=== PATIENT | male | born 1960 | race Caucasian/White ===

== ENCOUNTER 2016-09-05 21:37 | Inpatient (IN) | payer MEDICARE ==
[~2016-09-05] VITALS: Ht 175.3 cm; Wt 83.9 kg
--- NOTE | ~2016-09-05 | CON ---
PATIENT'S NAME: [facility] AGE: 56 Y [address] ROOM: [address] [place], [place] [address] LOCATION: GICU ADMIT DATE: 09/05/2016 Consultation DISCHARGE DATE: FAMILY PHYSICIAN: Jose Miguel Clemente MD ATTENDING PHYSICIAN: ROLO DESIR DATE OF CONSULTATION: 09/06/2016 REFERRING PHYSICIAN: Bob Aguila MD REASON FOR CARDIOLOGY CONSULT: A need for cardiac evaluation prior to a possible right hip fracture surgery as well as fluid overload and elevated cardiac enzymes. HISTORY OF PRESENT ILLNESS: This is a 56-year-old male who is admitted with a right hip fracture after a fall and a questionable syncopal episode. He does not fully recall falling. He remembers waking up in his kitchen on the floor with right-sided hip pain. He denies chest pain, shortness of breath, headache, or palpitations prior to the event. He does currently have some complaints of shortness of breath as well as right-sided hip pain. He has an extensive medical history including some noncompliance with his diabetes mellitus management. He does have a history of ischemic cardiomyopathy with a myocardial infarction in 2005 and did have a BiV-ICD in place, but was explanted along with lead extraction in 2014 due to pocket erosion and infection from uncontrolled diabetes. His other cardiac history includes hypertension, hyperlipidemia, and coronary artery disease. At the time of this consult, the patient has just recently been transferred to the intensive care unit for vasopressor support due to hypotension. He is resting comfortably in bed with no real complaints other than his hip pain and shortness of breath. PAST MEDICAL HISTORY: 1. Ischemic cardiomyopathy, last known ejection fraction in 2015 was 15-20%. 2. Device pocket erosion and infection with subsequent explantation of leads and his device in 2014. 3. Coronary artery disease with history of stenting to his LAD. 4. Anterior wall myocardial infarction in 2005. 5. Hyperlipidemia. 6. Nocturnal hypoxemia with O2 use at bedtime. 7. Hypertension. 8. Diabetes mellitus type 2 with insulin use. 9. Previous history of schizophrenia. PAST SURGICAL HISTORY: 1. Explantation of that BiV-ICD in July of 2015 due to pocket infection and erosion. 2. He originally had a dual-chamber ICD placed in 2008 and then upgraded to a BiV-ICD in 2011. PATIENT'S NAME: [facility] AGE: 56 Y [address] ROOM: [id number] [place], [place] [address] LOCATION: CU ADMIT DATE: 09/05/2016 Consultation DISCHARGE DATE: FAMILY PHYSICIAN: Jose Miguel Clemente MD ATTENDING PHYSICIAN: ROLO DESIR 3. Stenting to his LAD in 2005. 4. Stenting to his distal LAD, the 1st was in December of 2005, the second stent to distal LAD in March of 2006. 5. Foot surgery in 2011. FAMILY HISTORY: The patient's father at the age of 83 due to cancer. SOCIAL HISTORY: The patient is a current daily smoker. He smokes 2 packs per day and has done so for the last 35 years. He denies alcohol use as well as illicit drug use. CURRENT MEDICATIONS: 1. Atrovent 0.5 mg inhaled every 6 hours. 2. Xopenex 1.25 mg inhaled every 6 hours. 3. Levophed IV with titration parameters for hypotension. 4. Protonix 40 mg IV twice daily. 5. Aspirin 81 mg p.o. daily in the evening. 6. Deltasone 60 mg p.o. daily in the evening. 7. Mucinex 1200 mg p.o. twice daily. 8. Levaquin 750 mg p.o. daily in the evening. 9. Lipitor 80 mg p.o. daily in the evening. 10. Lopressor 25 mg p.o. twice daily. 11. Paxil 60 mg p.o. daily in the evening. 12. Peridex p.o. 4 times daily. 13. Prinivil 5 mg p.o. daily. 14. Topamax 100 mg p.o. twice daily. 15. Zyprexa 20 mg p.o. daily in the evening. 16. Levemir 50 units subcu daily in the evening. 17. NovoLog subcu on a mild sliding scale per a.c. and h.s. Accu-Cheks. 18. NicoDerm patch 7 mg transdermally daily. MEDICATION ALLERGIES: No known medication allergies. REVIEW OF SYSTEMS: A 12-point review of systems is evaluated and negative except for those listed in the HPI. DIAGNOSTICS: Cardiac enzymes show a CPK of 682, CK-MB of 13.1, and troponin I of 0.168. He has a D-dimer of 2.79 and a proBNP of 4148. CMS evaluation shows sodium of 133, potassium 4.6, BUN of 18, creatinine of 1.0, and a glucose of 58. PHYSICAL EXAMINATION: PATIENT'S NAME: [facility] AGE: 56 Y [address] ROOM: [place] [address] LOCATION: [facility] ADMIT DATE: 09/05/2016 Consultation DISCHARGE DATE: FAMILY PHYSICIAN: Jose Miguel Clemente MD ATTENDING PHYSICIAN: ROLO DESIR VITAL SIGNS: Temperature 98.4, pulse 76, respirations 18, blood pressure 74/56, and O2 saturation 95% on 4 L nasal cannula. The patient weighs 93.4 kg. SKIN: [place], warm, and dry. HEENT: Eyes: Sclerae clear. No xanthelasmas. ENT: Oral mucosa is pink and moist. No jugular venous distention or carotid bruits. CHEST: Respirations are even and slightly labored. Lung sounds are diminished to the bases bilaterally. HEART: Regular rate and rhythm. Heart tones are diminished. ABDOMEN: Distended but soft. MUSCULOSKELETAL: Equal muscle strength to upper and lower extremities bilaterally against resistance. EXTREMITIES: Peripheral pulses palpable. No clubbing or cyanosis noted. Does have 2 to 3+ lower extremity edema extending up to his thigh bilaterally. PSYCH: Alert and oriented. Mood and affect are appropriate. IMPRESSION AND PLAN: Per Dr. Barrios, 1. Cardiogenic shock. 2. Ischemic cardiomyopathy. 3. Chronic systolic congestive heart failure. 4. Very poor functional capacity. 5. Status post fall/syncope. 6. Hypotension. 7. Right hip fracture. 8. Coronary artery disease with a history of stenting to his left anterior descending artery as well as a myocardial infarction in 2005. 9. Diabetes mellitus. 10. History of implantable cardioverter-defibrillator explantation due to infection. Do recommend continuing his inotropic support to keep his MAP greater than 65 mmHg. Unable to give him beta-layne or RONNI inhibitor at this time due to hypotension, but do continue to monitor, and add these agents as appropriate for his heart failure management. Overall prognosis is poor and he is a very high risk for perioperative cardiac events. I do recommend very close monitoring for hemodynamics with inotropes to keep MAP greater than 65 mmHg. Watch for arrhythmias and avoid anemia. We will continue to monitor, evaluate, and treat as appropriate. Thank you for this consult. Thank you for allowing [facility] to interact in the care of this patient. PATIENT'S NAME: [facility] AGE: 56 Y [address] ROOM: [id number] [place], [place] [address] LOCATION: CU ADMIT DATE: 09/05/2016 Consultation DISCHARGE DATE: FAMILY PHYSICIAN: Jose Miguel Clemente MD ATTENDING PHYSICIAN: ROLO DESIR RICKI SERNA APRN FOR MD BIANCA SMITH/sheldon /[id number] d: 09/06/16 2305 t: 09/11/16 1218, CONSULTATION REPORT
--- NOTE | ~2016-09-05 | DS ---
PATIENT'S NAME: TEZ THOMPSON [facility] AGE: 56 Y [address] ROOM: [place] [address] LOCATION: GICU ADMIT DATE: 09/05/2016 Discharge Summary DISCHARGE DATE: 09/06/2016 FAMILY PHYSICIAN: Jose Miguel Clemente MD ATTENDING PHYSICIAN: Cresencio Kwon ATTENDING PHYSICIAN: Bryon Andrews MD PRIMARY CARE PHYSICIAN: None. FINAL DIAGNOSES: 1. Status post fall. 2. Right hip intertrochanteric fracture, comminuted. 3. History of chronic obstructive pulmonary disease. 4. Chronic respiratory failure. 5. History of congestive heart failure. 6. History of ischemic cardiomyopathy. 7. Diabetes mellitus. 8. Right femoral stenosis, chronic per Vascular Surgery. 9. Anemia. 10. Hypotension, currently on Levophed. 11. 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 CONSULTATIONS: 1. Cardiology, Duglas Barrios MD. 2. Pulmonology, Joaquim Danielson MD. 3. Critical Care, Joaquim Danielson MD. 4. Orthopedics, Santiago Melissa MD. 5. Vascular Surgery, Shane Wisdom MD. PROCEDURES: None. REASON FOR ADMISSION: This is a 56-year-old male with a history of ischemic cardiomyopathy and diastolic heart failure with ejection fraction of 10% to 15%, who presented after a fall. The patient was found to have right intertrochanteric fracture and was then further admitted to [facility]. Please see Dr. Kwon's admission H and P for further details. DIAGNOSTIC STUDIES: A transthoracic echocardiogram was done on admission showed ejection fraction of 15%. Mild pulmonary hypertension with RVSP 45 mmHg was noted, mildly reduced right ventricular fraction and grade I diastolic dysfunction was noted. Mild concentric left ventricular hypertrophy and mild LA enlargement were detected as well. ABG was done on admission showed a pH of 7.38, pCO2 42, pO2 106, bicarb 24.8. Lactate 1.7 on admission, subsequently lelia to 4.3, after hydration lactate was 2.2. Prior to transfer to [facility], Accu-Cheks were done on regular basis and were in the range of 84- 285. The patient had serial cardiac enzymes done CPK 707 on admission and PATIENT'S NAME: [facility] AGE: 56 Y [address] ROOM: [id number] [place], [place] [address] LOCATION: [facility] ADMIT DATE: 09/05/2016 Discharge Summary DISCHARGE DATE: 09/06/2016 FAMILY PHYSICIAN: Jose Miguel Clemente MD ATTENDING PHYSICIAN: Cresencio Kwon subsequently was 569. Troponin I 0.104 on admission, subsequently was 0.148, proBNP 4148 on admission and subsequently 4619. The patient had serial CBCs done. White count on admission was 17.0, at the time of discharge was 13.0; hemoglobin 11.8 on admission, 10.6 at discharge. Platelet count was within normal range. Serial BMPs were done. Electrolytes were within normal range on admission. Prior to discharge, the patient had a potassium of 5.4, which was treated. Creatinine was 1.2 on admission and 1.5 at discharge. The patient was developing VLAD prior to transfer. GFR more than 60 on admission and 48 at the time of discharge. Alkaline phosphatase 435. AST, ALT, and total bilirubin level within normal range. Mag 2.2. Hemoglobin A1c 9.7. Lipid panel showed cholesterol of 109, triglyceride 55, HDL 53, LDL 45. PT/INR was normal. The patient was placed on heparin drip prior to transfer. UA showed few bacteria, wbc's rbc's and rare epithelial cells and blood. Cardiac enzymes were done. CK-MB 16.4 on admission and at the time of discharge, it declined at 9.0. Iron studies were done. Serum iron 32, TIBC 304, percent saturation 11, ferritin level 72.8. Free T4 1.0, TSH 1.07. Procalcitonin level 0.36. Influenza A and B negative. D-dimer elevated at 2.79. CT chest PE protocol was done for shortness of breath and showed no PE, showed effusion, ascites, and body wall edema. Mild cardiomegaly noted. AVSD was detected. The patient had a CT of the abdomen and pelvis with runoff for poor pulses bilateral lower extremity. CTA with runoff showed comminuted intertrochanteric fracture of the right hip. No evidence of acute arterial bleeding was noted. No measurable hematoma noted, high-grade stenosis, focal occlusion of the proximal right renal artery with about 2/3 of the kidney infarcted, likely acute, high-grade flow-limiting stenosis in the distal right SFA was noted. Pleural effusion and ascites were detected. Chest x-ray was done on admission for hypoxia and showed cardiac silhouette enlarged, stable prominence of the central pulmonary vessels were noted with no acute infiltrate pleural effusion or pneumothorax. X-ray of the pelvis showed comminuted intertrochanteric fracture of the right hip. Cervical CT was done and showed no acute fracture. CT head no contrast was done for history of fall and showed no acute intracranial abnormality. X-ray of right femur showed right intertrochanteric fracture comminuted at the right hip. HOSPITAL COURSE: The patient was admitted for evaluation management of his right intertrochanteric hip fracture. The patient presented with a fall. The patient does have a history of COPD and a history of diastolic CHF with a history of ischemic cardiomyopathy and ejection fraction of 10% to 15%. The patient was found to be hypotensive and was placed in the ICU. He was on pressors. He was placed on Levophed during this admission. Cardiology was consulted. No additional recommendations were received. The patient had decreased pulses of bilateral lower extremity. CTA was done at that point of time and showed right renal stenosis and right SFA stenosis, Vascular Surgery, Dr. Wisdom was consulted and no additional recommendations were received. Dr. Wisdom called me and stated that this was likely chronic occlusion. The PATIENT'S NAME: TEZ THOMPSON [facility] AGE: 56 Y [address] ROOM: [place] [address] LOCATION: [facility] ADMIT DATE: 09/05/2016 Discharge Summary DISCHARGE DATE: 09/06/2016 FAMILY PHYSICIAN: Jose Miguel Clemente MD ATTENDING PHYSICIAN: Cresencio Kwon patient did have right renal artery stenosis with infarction of his kidney and I did discuss the case with Radiology that evening. The patient's creatinine was normal on admission, but his creatinine started to rise and patient developed VLAD with a drop in GFR. He was also found to be hyperkalemic at that point of time that evening. I did discuss the case with Dr. Espinoza who thought that this was likely acute occlusion versus subacute occlusion of the right renal artery. I called Dr. Wisdom back again to discuss heparin use Dr. Wisdom thought that this was likely chronic and was not indicated. The patient did have elevation of his cardiac enzymes. I consulted Cardiology. No additional recommendations were received prior to transfer since the patient was developing acute kidney injury and there was question about renal infarct. The patient was placed on heparin drip per ACS protocol. There was also concern for sepsis. The patient was started on Levaquin and received Zosyn prior to transfer. Pulmonology was consulted for his history of COPD. Dr. Danielson evaluated the patient and no further recommendations were received. The patient was supposed to undergo surgery, Cardiology stated that the patient was some high-risk for surgery. Dr. Aguila was consulted for a right hip fracture. The patient could not undergo surgery since Dr. Kendrick thought that the patient was not stable enough for surgery at that point of time. Since the patient was declining, was developing VLAD and was also hypotensive. There was consideration given to further cardiology evaluation at a higher level of care. Dr. Kwon transferred the patient to [facility] at that night since the patient was declining and there was no definite plan. The patient was transferred to [facility] in stable condition. He was transferred on Levophed and heparin drip. Accepting physician was Dr. Zavala at [facility]. The patient developed hyperkalemia during this admission with acute kidney injury. He was treated with insulin and dextrose and also received a dose of Kayexalate, his potassium was 5.4, repeat potassium was to be done at the referral hospital. Repeat potassium to be done after treatment. The patient did not have any EKG changes of hyperkalemia during this admission. DISCHARGE INSTRUCTIONS: The patient transferred by Dr. Kwon that evening. The patient was transferred on a heparin drip and Levophed drip. DISCHARGE MEDICATIONS: 1. Heparin IV per protocol. 2. Zosyn 3.375 g IV every 8 hours. 3. D5 half-normal saline at 50 mL/h. 4. Levophed GTT per protocol to keep MAP greater than 65. 5. Aspirin 81 mg p.o. q.h.s. 6. Lipitor 80 mg p.o. q.h.s. 7. Peridex use as directed four times daily p.o. 8. Mucinex 1200 mg p.o. b.i.d. PATIENT'S NAME: TEZ THOMPSON [facility] AGE: 56 Y [address] ROOM: [place] [address] LOCATION: [facility] ADMIT DATE: 09/05/2016 Discharge Summary DISCHARGE DATE: 09/06/2016 FAMILY PHYSICIAN: Jose Miguel Clemente MD ATTENDING PHYSICIAN: Cresencio Kwon 9. NovoLog mild sliding scale insulin before meals and at bedtime. 10. NovoLog mild sliding scale subcu q.4 hours, if n.p.o. 11. Lopressor 25 mg p.o. b.i.d. 12. Nicotine 21 mg transcutaneous every day. 13. Zyprexa 20 mg p.o. q.h.s. 14. Protonix 40 mg IV b.i.d. 15. Paxil 60 mg p.o. q.h.s. 16. Prednisone 60 mg p.o. q.h.s. 17. Topamax 100 mg p.o. b.i.d. 18. Kayexalate 30 g p.o. x1, given already. 19. Atrovent 0.5 mg inhalation every 6 hours per RT. 20. Xopenex inhalation per RT every 6 hours. 21. Dextrose 50 mL IV every hours as needed p.r.n. hypoglycemia. 22. Fentanyl 25-50 mcg IV q.2 hours p.r.n. pain. BRYON ANDREWS MD MT/sheldon /[id number] d: 09/17/16 1345 t: 09/22/162013, DISCHARGE SUMMARY
--- NOTE | ~2016-09-05 | ER ---
PATIENT'S NAME: TEZ THOMPSON [facility] AGE: 56 Y [address] ROOM: [place] [address] [place] [facility] [place] DATE: 09/05/2016 ER/Outpatient Report DISCHARGE DATE: FAMILY PHYSICIAN: PHYSICIAN, UNKNOWN ATTENDING PHYSICIAN: ROLO DESIR Admission date and time are documented in the medical record. I saw the patient at 2150 hours. CHIEF COMPLAINT: Fall, right hip pain. HISTORY OF PRESENT ILLNESS: The patient is a 56-year-old male who 30 minutes prior to admission in the emergency room fell outside his residence. He did crawl into the house and called 911. Paramedics did bring the patient into the emergency room for evaluation. The patient had a low blood sugar at the scene and was given of an amp of D50 IV. On arrival, the patient was awake, responsive. Complains of right hip pain. Did hit the back of his head, but did not lose consciousness. He has no head pain, eyes, ears, nose, throat, neck, or spine pain. No recent colds, coughs, flus, fever, chills, or sweats. No lightheadedness, dizziness, syncope, or near syncope. No chest pain or shortness of breath. No diaphoresis. No abdominal pain, nausea, vomiting, or diarrhea. No incontinence of stool or urine. No joint or muscle swelling, redness, or pain other than the right hip. No skin eruptions or rash. Does have a history of insulin-dependent diabetes mellitus. He has been taking his insulin. Does have bipolar disorder and schizophrenia. No history of CVA, TIA, or seizure disorder. HOME MEDICATIONS: See attached medication list. ALLERGIES: NONE. SOCIAL HISTORY: The patient smokes half to a pack of cigarettes a day and nondrinker. SIGNIFICANT PAST MEDICAL HISTORY: Hypertension, atherosclerotic ischemic heart disease with coronary artery disease, status post myocardial infarction, ischemic cardiomyopathy, bipolar disorder with anxiety, depression, schizophrenia, systolic congestive heart failure, insulin-dependent diabetes mellitus type 2, dyslipidemia, noncompliant behavior, and tobacco abuse. OPERATIONS: Pacemaker placement and removal because of infection, AICD placement, knee PATIENT'S NAME: TEZ THOMPSON [facility] AGE: 56 Y [address] ROOM: [place] [address] [place] [facility] [place]: 09/05/2016 ER/Outpatient Report DISCHARGE DATE: FAMILY PHYSICIAN: PHYSICIAN, UNKNOWN ATTENDING PHYSICIAN: ROLO DESIR surgery, foot surgery, colonoscopy, and cardiac catheterization with PTCA and stenting. REVIEW OF SYSTEMS: All systems reviewed by me are negative with the exception of those discussed in history of present illness. PHYSICAL EXAMINATION: VITAL SIGNS: Temperature 92.2, tympanic, pulse 89, respirations 24, blood pressure 132/82, and O2 sat on 5 L of oxygen per nasal cannula is 93%. HEAD: Normocephalic. No abrasion, contusions, lacerations, or swellings. EYES: Extraocular muscles intact. PERRL. EARS: Clear TMs bilaterally. NOSE AND THROAT: Clear. NECK: No nuchal rigidity. No thyromegaly or cervical adenopathy. No tenderness. SPINE: Negative. LUNGS: Clear. No rales, rhonchi, or wheezes. HEART: Regular. Pulses are palpable. The patient is tachypneic at a rate of 24. ABDOMEN: Soft, nondistended, nontender. Good bowel tones. No organomegaly or abnormal mass palpable. PELVIS: Stable. EXTREMITIES: The patient has shortened externally rotated right leg; otherwise, no other joint muscle swelling, redness, or pain. NEURO: The patient is awake, responsive, no lateralizing signs. SKIN: Clear. LABORATORY DATA: Pelvic chest x-ray shows comminuted fracture of the right hip. Right hip x- ray shows intertrochanteric fracture, right hip, comminuted. Chest x-ray shows cardiomegaly and congestive heart failure pattern. We will review all plain films with the radiologist. CT scan of the head showed no intracranial bleed, midline shift, mass effect, or skull fracture. CT scan of the cervical spine showed no acute fracture or subluxation. Laboratory: White count was 17,000, 83 segs, 8 lymphs, 8 monos, hemoglobin is 11.8 with hematocrit 36.3, and platelet count 181,000. PTT was 29, pro-time is 11.1 with an INR 1.1. CMS was normal except for a low sodium 133, low glucose 58, low calcium 7.5, elevated alk phos 435, and magnesium was 2.2. CPK was 707, CK-MB was elevated 16.4, troponin was elevated at 0.104. Acetone was positive 1:4. Pro-BNP was 4148. Venous pH was 7.22. EMERGENCY DEPARTMENT COURSE: I did give the patient some warmed IV normal saline fluids. PATIENT'S NAME: TEZ THOMPSON [facility] AGE: 56 Y [address] ROOM: [place] [address] [place] [facility] [place]: 09/05/2016 ER/Outpatient Report DISCHARGE DATE: FAMILY PHYSICIAN: PHYSICIAN, UNKNOWN ATTENDING PHYSICIAN: ROLO DESIR ASSESSMENT: 1. Fall, outside the patient's residence with comminuted intertrochanteric fracture, right hip. Grade 1 concussion without loss of consciousness. 2. Hypoglycemia. The patient is known insulin-dependent diabetic type 2. 3. Diabetic ketoacidosis with positive acetone at 1:4 and venous pH of 7.22. 4. Atherosclerotic ischemic heart disease with coronary artery disease with elevated cardiac enzymes, CK-MB of 16.4, and troponin I of 0.104. 5. Past history of ischemic cardiomyopathy. 6. History of systolic congestive heart failure. 7. Bipolar disorder with anxiety, depression. 8. Dyslipidemia. 9. Schizophrenia. 10. Tobacco abuse. 11. Past history of noncompliant behavior. PLAN: Initially, I talked with Dr. Clemente who is the patient's personal physician. He wanted the hospitalist to admit and then he wanted to consult Dr. Aguila, Orthopedic Surgeon, in regards to the hip fracture. I did talk with Dr. Desir, hospitalist, in regards to this patient for admission. We will admit the patient to the hospital. Discussion ensued with the patient concerning my findings and recommendations, he understands. Accumulated critical care time was 40 minutes. MD WILBERT DANIEL/sheldon /[id number] d: 09/06/16 0128 t: 09/07/16 1834, OUTPATIENT REPORT
--- NOTE | ~2016-09-05 | ECHO ---
Transthoracic Echocardiography Report (TTE) Demographics Patient Name TEZ THOMPSON Date of Study 09/06/2016 Patient Number [id number] Visit Number [id number] Date of 1960 Room Number G6214 Accession Number [id number] Gender Male Age 56 year(s) Referring Cher Pulliam MD Hvac Engineer Jose Sanchez RVT Physician Physician Interpreting Denis Ardon Sales Strategy Manager Physician Galdino Haney MD Supervising Ordering Physician Cher Pulliam MD, MD/P Nurse Stress Conservation Technician Conclusions Summary Dilated cardiomyopathy with severely reduced LV systolic function. The estimated left ventricular ejection fraction is about 15%. Mild eccentric left ventricular hypertrophy. Mild LA enlargement. Diastolic assessment reveals Grade I diastolic dysfunction. Mildly reduced right ventricular function. Normal RV size. Mild MR. Mild TR. IVC measures 1.6 cm with no inspiratory collapse. There is mild pulmonary hypertension. The pulmonary pressure (RVSP) is 45 mmHg. IVC measures 1.6 cm with no inspiratory collapse. Procedure Type of Study TTE procedure:2D Echocardiogram, M-Mode, Doppler , Color Doppler. Procedure Date Date: 09/06/2016 Start: 08:38 AM Study Location: Inpatient Portable Technical Quality: Adequate visualization Indications:Hypotension. Appropriate Use Criteria: 9 Patient Status: STAT HR: 78 bpm BP: 83/62 mmHg M-Mode/2D Measurements LV Diastolic Dimension: 5.83 cm LV Systolic Dimension: 5.36 cm LV Septum Diastolic: 1.37 cm LV PW Diastolic: 1.32 cm AO Root Dimension: 2.4 cm Cardiac Output: 2 l/min AV Cusp Separation: 2 cm RV Diastolic Dimension: 2.95 cm LVOT: 2 cm LVOT VTI: 8.16 cm RV Base: 3.35 cm LV Stroke volume: 25.62 ml RV Length: 6.9 cm TAPSE: 0.95 cm TDI-S': 5.7 cm/s Doppler Measurements AV Peak Velocity: 1.02 m/s MV Peak E-Wave: 0.84 m/s AV Peak Gradient: 4.16 mmHg AV Mean Gradient: 3 mmHg MV P1/2t: 66 msec LVOT Peak Velocity: 0.55 m/s TR Velocity:2.74 m/s PV Peak Velocity: 0.63 m/s TR Gradient:30.03 mmHg PV Peak Gradient: 1.59 mmHg Estimated RAP:15 mmHg Estimated PASP: 45.03 mmHg Estimated RVSP: 45 mmHg A' Septal Velocity: 0.03 m/s E' Septal Velocity: 0.05 m/s A' Lateral Velocity: 0.03 m/s E' Lateral Velocity: 0.05 m/s Findings Left Ventricle Mild eccentric left ventricular hypertrophy. The left ventricle is mildly dilated . Diastolic assessment reveals Grade I diastolic dysfunction. Right Ventricle Mildly reduced right ventricular function. Normal RV size. Left Atrium The left atrium is mildly dilated. Right Atrium The right atrium is grossly normal in size. IVC measures 1.6 cm with no inspiratory collapse. Mitral Valve Mild calcification of the mitral valve. Mild mitral regurgitation by color Doppler. Aortic Valve The aortic valve is mildly sclerotic. Tricuspid Valve Mild tricuspid regurgitation by color Doppler. There is mild pulmonary hypertension. The pulmonary pressure (RVSP) is 45 mmHg. Pulmonic Valve Trivial pulmonic valve regurgitation by color Doppler. Pericardial Effusion No evidence of pericardial effusion. Miscellaneous Visualized portions of the aortic root and ascending aorta appear normal in size. Pleural Effusion No evidence of pleural effusion. Signature dtt: JAMA STAUFFER dtd: 09/06/16 0838 Physician Self Edit
--- NOTE | ~2016-09-05 | CON ---
PATIENT'S NAME: TEZ THOMPSON [facility] AGE: 56 Y [address] ROOM: [place] [id number] LOCATION: GICU ADMIT DATE: 09/05/2016 Consultation DISCHARGE DATE: 09/06/2016 FAMILY PHYSICIAN: Jose Miguel Clemente MD ATTENDING PHYSICIAN: ROLO DESIR DATE OF CONSULTATION: 09/06/2016 REFERRING PHYSICIAN: Bob Aguila MD REASON FOR CONSULTATION: Diminished peripheral pulses. HISTORY OF PRESENTING ILLNESS: This is a 56-year-old male admitted to [facility] after slipping at home and hitting his head and his right hip. The patient reports that he had lost consciousness after this fall. 911 was called and the patient taken to the ER by paramedics. There, he was found to have intertrochanteric fracture to his right extremity. Currently, the patient is on the intensive care unit, and we are consulted for concern of diminished pulses to the right lower extremity. The patient has had a CTA with runoff completed prior to this consultation. The patient has a one pack per day smoking history since he was 11 years old. He is also a known diabetic, on insulin, and has significant medical history including hypertension, diastolic and systolic heart failure, coronary artery disease, removal of AICD due to infection, and COPD, on chronic oxygen. The patient is a poor historian and also has history of depression, anxiety, and schizophrenia. He denies any history of DVT or PE. Denies any shortness of breath, chest pain, nausea, vomiting, diarrhea, headache, abdominal pain, or lightheadedness. The patient does report pain at his right hip. The patient had claudication symptoms that were happening prior to his fracture with cramping down his legs after walking only one block. He reports bilateral lower extremity edema. PAST MEDICAL HISTORY: 1. Diabetes, type 2. 2. Hypertension. 3. Ischemic cardiomyopathy. 4. Status post biventricular AICD implantation with removal. 5. COPD, on home oxygen. 6. Systolic and diastolic congestive heart failure. 7. Bipolar disorder. 8. Depression. 9. Coronary artery disease. 10. Schizophrenia. PAST SURGICAL HISTORY: 1. Dual-chamber pacemaker in 2008 and 2010. 2. Biventricular AICD placed in 2015 and removed in 2015. PATIENT'S NAME: TEZ THOMPSON [facility] AGE: 56 Y [address] ROOM: [id number] [place], [place] [address] LOCATION: GICU ADMIT DATE: 09/05/2016 Consultation DISCHARGE DATE: 09/06/2016 FAMILY PHYSICIAN: Jose Miguel Clemente MD ATTENDING PHYSICIAN: ROLO DESIR 3. Tonsillectomy. 4. Cardiac stents x2. FAMILY HISTORY: Father with [place] at age 83 and prostate cancer. Mother with arthritis. SOCIAL HISTORY: The patient tells me that he is a one pack per day smoker since he was 11. The patient denies any alcohol or illicit drug use. CURRENT MEDICATIONS: See medication reconciliation. The patient is on: 1. Aspirin 81 mg. 2. Lipitor 80 mg. ALLERGIES: NO KNOWN ALLERGIES. REVIEW OF SYSTEMS: A 10-point review of systems was completed, positives addressed in the History of Presenting Illness. PHYSICAL EXAMINATION: VITAL SIGNS: Temperature 98.4, heart rate 73, respiratory rate 18, blood pressure 74/58, and oxygen saturation is 95% on 4 L per nasal cannula. GENERAL: The patient is a poor historian. Appears older than stated age and in mild distress. Poor hygiene and anxious. SKIN: No open areas or rashes. Reardan. HEENT: Head: Normocephalic and atraumatic. Ears: Without drainage. Eyes: Sclerae are white. Conjunctivae pink. Extraocular movements intact. PERRLA. Nose: Without drainage. Throat: Oral mucosa pink and moist. No exudate or erythema. NECK: Without adenopathy. No evidence of JVD or carotid bruit. Trachea midline. RESPIRATORY: Diminished breath sounds, even. CARDIOVASCULAR: Regular rate and rhythm. No murmur or extra sounds. GASTROINTESTINAL: Bowel sounds active x4. Soft. No organomegaly. Nontender. EXTREMITIES: The right extremity does appear shorter than the left. Hip not examined due to fracture. There is 2+ pitting edema to bilateral lower extremities. I am unable to palpate dorsalis pedis and posterior tibialis pulses bilaterally. A bedside Doppler was used, and both extremities with monophasic waveforms. I am able to find dorsalis pedis and posterior tibialis bilaterally with doppler. They are similar in waveforms, sounds. No cyanosis. Extremities are cool to touch. Range of motion limited to right hip. PATIENT'S NAME: TEZ THOMPSON [facility] AGE: 56 Y [address] ROOM: [id number] [place], [place] [address] LOCATION: CU ADMIT DATE: 09/05/2016 Consultation DISCHARGE DATE: 09/06/2016 FAMILY PHYSICIAN: Jose Miguel Clemente MD ATTENDING PHYSICIAN: ROLO DESIR Otherwise, range of motion normal throughout. NEUROLOGIC: No focal deficits. Strength 5/5 bilaterally. Sensation intact. LABORATORY DATA: Hematology: White blood cell count 13.0, hemoglobin 10.3, hematocrit 31.9, and platelets 179. Chemistry: Sodium 134, potassium 4.6, chloride 101, CO2 of 22, BUN 18, creatinine 1.1, and glucose 76. Also, D-dimer 2.79. CTA results with high-grade stenosis to bilateral iliac arteries, internal and external. Stenosis to right superior femoral artery. Stenosis to right renal artery with infarction. IMPRESSION AND PLAN: 1. Severe chronic peripheral vascular disease from tobacco abuse. The patient will need angiogram, in the future, of lower extremities. The patient is currently on vasopressor and not a candidate for angiogram at this time. No acute occlusions or lacerations to artery on CTA. We recommend continuing aspirin and Lipitor. 2. Diastolic and systolic congestive heart failure. Decreased pulses also likely related to abnormal ejection fraction and hypotension. Cardiology is managing. 3. Right renal artery stenosis with infarct. Creatinine currently 1.1. 4. Hypotension. The patient is on Levophed. 5. Tobacco abuse. Counseled the patient on smoking cessation. 6. Right hip fracture. Orthopedics is managing. 7. Chronic obstructive pulmonary disease. Pulmonary team is managing. Thank you for your consultation and for allowing us to participate in the care of this patient. ELEONORA LANDAVERDE APRN FOR JENNIFER SHARIF MD TO/modl /[id number] d: 09/06/16 1526 t: 09/14/16 1045, CONSULTATION REPORT
--- NOTE | ~2016-09-05 | CON ---
PATIENT'S NAME: TEZ THOMPSON [facility] AGE: 56 Y [address] ROOM: [place] [address] LOCATION: GICU ADMIT DATE: 09/05/2016 Consultation DISCHARGE DATE: 09/06/2016 FAMILY PHYSICIAN: Jose Miguel Clemente MD ATTENDING PHYSICIAN: ROLO DESIR DATE OF CONSULTATION: 09/06/2016 REFERRING PHYSICIAN: Bob Aguila MD INDICATION FOR CONSULT: Preop pulmonary clearance. HISTORY OF PRESENT ILLNESS: This is a 56-year-old male admitted last night after a fall. He reports that he lost consciousness; however, it was unwitnessed; so, he is unsure of how long he was out. He estimates less than a minute. He has a history of ischemic cardiomyopathy with an EF of 15%, CAD, DC, hyperlipidemia, hypertension, type 2 diabetes, tobacco use, and schizophrenia. At the time of the consult, the patient was being moved to ICU due to hypotension with blood pressures in the 70s. He was started on Levophed drip. The patient is alert and oriented at the time of the interview. Heart rate was in the 70s. He reports that he has had a cough with brown sputum and increased shortness of breath with lower extremity edema over the last few weeks. He denies any wheezing or history of asthma or COPD. He is an ongoing smoker since the age of 11. PAST MEDICAL HISTORY: Includes ischemic cardiomyopathy with an EF of 15%, CAD, status post PCI, DC, hyperlipidemia, nocturnal hypoxia, hypertension, diabetes type 2, tobacco use, and schizophrenia. MEDICATIONS: See MAR. ALLERGIES: SEE MAR. FAMILY HISTORY: Father passed from an DC at age 83. His mother is alive at 87 without medical problems. SOCIAL HISTORY: The patient lives alone and is an active cigarette smoker since the age of 11. He was up to one-pack per day and is down to about 4 cigarettes per day now. He denies any alcohol or illicit drug use. REVIEW OF SYSTEMS: PATIENT'S NAME: TEZ THOMPSON [facility] AGE: 56 Y [address] ROOM: [place] [address] LOCATION: GICU ADMIT DATE: 09/05/2016 Consultation DISCHARGE DATE: 09/06/2016 FAMILY PHYSICIAN: Jose Miguel Clemente MD ATTENDING PHYSICIAN: ROLO DESIR A 12-point review of systems is negative except for what is noted in the HPI. PHYSICAL EXAMINATION: VITAL SIGNS: Blood pressure 96/67, pulse 79, respirations 18, and temp 98.4. He is 96% on 5 L nasal cannula. Weight is 93.4 kilos, in March of last year, he was 69.9 kilos. GENERAL: This is a 56-year-old ill-appearing overweight male who is in mild acute distress, secondary to his current condition, but is alert and oriented x3. HEENT: Head: Normocephalic and atraumatic. Eyes clear. NECK: Supple. No adenopathy. No carotid bruits. No JVD. LUNGS: Decreased breath sounds at both bases with bilateral crackles. HEART: Regular rate and rhythm with 2/6 systolic murmur along the left sternal border. No gallop or rub. ABDOMEN: Soft, nontender, nondistended. Bowel sounds x4. EXTREMITIES: No cyanosis or clubbing. A 2+ lower extremity edema. DIAGNOSTIC DATA: ABG today showed a pH of 7.38, pCO2 of 42, pO2 106, bicarb 24.8, lactate 1.7, sodium 134, potassium 4.6, bicarb 22, BUN 18, and creatinine 1.1. Troponin 0.149, pro-BNP 4619, procal 0.36. WBC 13, hemoglobin 10.3, and hematocrit 31.9. Chest x-ray showed improved vascular congestion compared to admission chest x-ray. PFTs in 2015 showed an FEV1 of 68% and FEV1/FVC was 71% ASSESSMENT: 1. Preoperative pulmonary clearance. The patient's respiratory status is compromised by his acute exacerbation of congestive heart failure, not chronic obstructive pulmonary disease. His FEV1 was 68% in 2015 and he has no significant symptoms or signs of chronic obstructive pulmonary disease exacerbation. Obviously his cardiac demise would make him very high-risk for surgery at the current point. 2. Cardiogenic shock due to congestive heart failure exacerbation. Question sepsis component. 3. Bilateral pleural effusions due to fluid overload. 4. Right hip fracture after fall. 5. [id number] systolic heart failure, question etiology. PLAN: We will follow up with Cardiology recommendations and proceed with sepsis workup. We will reassess for pulmonary clearance in the future if necessary after Cardiology clearance is obtained. This was discussed with the multiple providers involved in the patient's case. Thank you for the consult and opportunity to participate in the patient's care. PATIENT'S NAME: TEZ THOMPSON [facility] AGE: 56 Y [address] ROOM: G6214 [place], [place] [address] LOCATION: [facility] ADMIT DATE: 09/05/2016 Consultation DISCHARGE DATE: 09/06/2016 FAMILY PHYSICIAN: Jose Miguel Clemente MD ATTENDING PHYSICIAN: ROLO DESIR L[address] OLGUIN APRN FOR NENA ALBERTO MD [facility]/modl /[id number] d: 09/06/16 2216 t: 09/11/16 1347, CONSULTATION REPORT
--- NOTE | ~2016-09-05 | CON ---
PATIENT'S NAME: DONNA [facility] AGE: 56 Y [address] ROOM: [place] [id number] LOCATION: GICU ADMIT DATE: 09/05/2016 Consultation DISCHARGE DATE: FAMILY PHYSICIAN: Jose Miguel Clemente MD ATTENDING PHYSICIAN: ROLO DESIR REFERRING PHYSICIAN: Bob Aguila MD CHIEF COMPLAINT: Intertrochanteric fracture, right hip. HISTORY: This 56-year-old male slipped on the ice last night on his front porch landing on his right hip. There was a loss of consciousness according to the patient, but the episode was unwitnessed. He reports he laid there for a while in the front porch, when he woke up he was able to crawl into the house and dialed 911. He denies any prodromal symptoms. No evidence of chest pain, shortness of breath, trouble breathing, dyspnea, dizziness, or lightheadedness. He is on chronic oxygen because of COPD and has poorly controlled diabetes. PAST MEDICAL HISTORY: ALLERGIES: NONE TO MEDICATIONS. MEDICAL HISTORY: Hypertension; type 2 diabetes, on insulin; ischemic cardiomyopathy, status post stents; status post biventricular defibrillator and pacemaker, removed due to infection; COPD, on home oxygen 5 L; systolic and diastolic congestive heart failure; bipolar disorder; depression. SURGICAL HISTORY: Cardiac caths with stents in 2006. He has had a pacemaker and then converted to a defibrillator which was removed because of infection. FAMILY HISTORY: Father of [place] at age 83. Mother healthy at 87. SOCIAL HISTORY: History of smoking, quarter to half pack per day since childhood. SOCIAL HISTORY: No alcohol or illegal drug use. REVIEW OF SYSTEMS: Chronic cough, reduced appetite, generalized weakness and malaise, occasional lightheadedness. No dysuria or hematuria. Occasional constipation. No skin PATIENT'S NAME: [facility] AGE: 56 Y [address] ROOM: [address] [place] [id number] LOCATION: [facility] ADMIT DATE: 09/05/2016 Consultation DISCHARGE DATE: FAMILY PHYSICIAN: Jose Miguel Clemente MD ATTENDING PHYSICIAN: ROLO DESIR. He does have occasional auditory and visual hallucinations, related to bipolar and depression. DIAGNOSTIC DATA: X-rays of his pelvis and right hip demonstrate comminuted intertrochanteric fracture of the right hip. IMPRESSION: 1. Comminuted intertrochanteric fracture, right hip, due to fall at home. 2. Hypertension. 3. Type 2 diabetes, on insulin. 4. Ischemic cardiomyopathy, status post stents. 5. Status post biventricular defibrillator, removed due to infection. 6. Chronic obstructive pulmonary disease, on oxygen. 7. Systolic and diastolic congestive heart failure. 8. Bipolar disorder. 9. Depression. 10. History of cardiac cath in 2006. PLAN: The patient is currently in the ICU. He has had some episodes of hypotension. He is being cleared by Cardiology and Pulmonology. Once those are complete and he is cleared, we will plan an ORIF of his right hip with a TFN nail. I discussed details of the surgical procedure, risks, benefits, and alternatives, emphasizing anesthetic, neurovascular, infectious complications, as well as increased risks of and infection related to his comorbid conditions. The patient understands that Dr. Aguila would be doing the surgery and desires to proceed with treatment as planned. MD AYAN RIVERA/sheldon /[id number] d: 09/06/162032 t: 09/11/16 1005, CONSULTATION REPORT
--- NOTE | ~2016-09-05 | HP ---
PATIENT'S NAME: TEZ THOMPSON [facility] AGE: 56 Y [address] ROOM: [id number] [place], [place] [address] LOCATION: GPCU ADMIT DATE: 09/05/2016 History & Physical DISCHARGE DATE: FAMILY PHYSICIAN: PHYSICIAN, UNKNOWN ATTENDING PHYSICIAN: ROLO DESIR DATE OF SERVICE: CHIEF COMPLAINT: Worsening cough and dyspnea as well as worsening bilateral lower extremity edema and right hip pain status post fall. HISTORY OF PRESENT ILLNESS: This is a 56-year-old male who says that when he was walking on the porch, he slipped on the ice and fell on his right side landing on his right hip and also hit back of the head against the ground. He said he passed out for roughly 40 minutes according to him. The fall was unwitnessed. He said that when he woke up, he was on the ground, but he could not get up because of right hip pain, so he crawled back to his house and was able to call 911 and was brought in here for evaluation. He states that prior to the fall, he did not have any lightheadedness, nausea or vomiting, diaphoresis, blurry vision, chest pain, palpitation, dyspnea, headache, or any prodrome symptoms. He states the fall was purely mechanical when he slipped on the ice and fell. Upon further questioning, the patient has also been having poor appetite for several weeks where he usually only eats one meal per day; however, he still continued to inject 50 units of subcutaneous Levemir every morning even though he only eats one meal per day. He is also noncompliant with his medications. He says that he frequently misses several doses of different medications. He also does not know which medications he takes. The patient continues to smoke and is a long-time smoker. He smokes about 2-3 cigarettes per day since he was 11 years old according to him. At baseline, he has a chronic productive yellowish cough consistent with chronic bronchitis on a daily basis and he probably also has COPD diagnosis since he also uses 5 L of oxygen at home according to him. The patient is somewhat a poor historian. He states that sometimes he does not use oxygen during the day but sometimes he does especially on exertion. At night, he says he wears oxygen 5 L nasal cannula most of the night. He states that the last time he had chest pain was a few years ago. He does not remember when was his last cardiac catheterization or TTE. Upon reviewing the patient's medical records in [facility], the patient has significant cardiac history where his last transthoracic echo on our [facility] was on March 07, 2016, at that time, it showed dilated ischemic cardiomyopathy with regional wall motion abnormalities and ejection fraction of 15% to 20%. Based on our [facility], he had cardiac catheterization in [facility] with EFREN to LAD. His most recent cardiac catheterization PATIENT'S NAME: TEZ THOMPSON [facility] AGE: 56 Y [address] ROOM: [place] [id number] LOCATION: GPCU ADMIT DATE: 09/05/2016 History & Physical DISCHARGE DATE: FAMILY PHYSICIAN: PHYSICIAN, UNKNOWN ATTENDING PHYSICIAN: ROLO DESIR was in 2006 based on [facility]. At that time, it showed severe 1-vessel coronary artery disease with a mildly reduced left ventricular function, EF of 35% to 40% and recommended medical therapy at that time. The patient also has a history of dual chamber pacemaker placed in 2008. In 2010, it was upgraded to a biventricular ICD; however, it got infected and it was removed in September 2015. So currently, the patient does not have an AICD and he has a scheduled appointment to see his primary filter assembler later this month according to the patient. The patient also had pulmonary function tests in April 2015 where FEV1/FVC was 71 and after bronchodilator, it was 65%. Interpretation was the patient had no clear airflow limitation and no significant bronchodilator response. The diffusion capacity was moderately low. There was no evidence of restrictive lung disease, but the patient did have air trapping. The patient is admitted for right hip fracture status post fall and also worsening of dyspnea on exertion, productive cough, bilateral lower extremity edema and found to be hypoglycemic and acute anemia. This patient is at high risk to undergo surgical repair for the right hip fracture if surgery is warranted. His glycemia was 58 on arrival to the emergency room and has required several amps of dextrose 50%. REVIEW OF SYSTEMS: As mentioned in the history of present illness. All other systems were reviewed and negative except those mentioned in the history of present illness. PAST MEDICAL HISTORY: 1. Hypertension. 2. Diabetes type 2, on insulin. 3. Ischemic cardiomyopathy status post drug-eluting stents placed to LAD in 2005 based on [facility]. 4. Status post biventricular AICD implantation and it subsequently was removed due to infection. 5. COPD, on home oxygen 5 L nasal cannula on and off during the day but at all times most nights. 6. Combined systolic and diastolic congestive heart failure with most recent echo on our [facility] on March 07, 2016, showing dilated ischemic cardiomyopathy with wall motion abnormality, EF of 15% to 20% with grade 1 diastolic dysfunction. 7. Bipolar disorder. 8. Depression. 9. Last cardiac catheterization on our [facility] was in 2006, showing patent stent with severe single-vessel disease in the right coronary artery. 10. Schizophrenia ALLERGIES: PATIENT'S NAME: TEZ THOMPSON [facility] AGE: 56 Y [address] ROOM: [id number] [place] [id number] [facility] ADMIT DATE: 09/05/2016 History & Physical DISCHARGE DATE: FAMILY PHYSICIAN: PHYSICIAN, UNKNOWN ATTENDING PHYSICIAN: ROLO DESIR NO KNOWN DRUG ALLERGIES ACCORDING TO THE PATIENT. HOME MEDICATIONS: The patient does not remember and he did not bring the home medication list here with him either. The medication will be reconciled with pharmacy in the morning. SOCIAL HISTORY: The patient is an active cigarette smoker about 2-3 cigarettes per day since he was 11 years old. The patient denies any alcohol or any illegal drug use. PAST SURGICAL HISTORY: 1. Status post dual chamber pacemaker implantation in 2008, and in 2010, it was upgraded to a biventricular ICD, status post removal due to infection in September 2015. 2. Coronary artery disease status post drug-eluting stents placed to LAD in the past in 2005 according to cath report in [facility]. FAMILY HISTORY: Father from myocardial infarction at age 83. Mother is healthy, she is 87 years old without any medical problems according to the patient. PHYSICAL EXAMINATION: VITAL SIGNS: At the time of my evaluation, blood pressure 120/75, respirations 22, heart rate 102, temperature 97.2, saturation 90% on 7 L nasal cannula. Pain 6/10 in the right hip. GENERAL APPEARANCE: Alert and oriented x3, in moderate distress from the right hip pain and from dyspnea with moderate respiratory distress and mild labored breathing, but no cyanosis. The patient looks acutely ill and uncomfortable. The patient also looks anxious. HEENT: Pupils are equally round and reactive to light. Extraocular muscles intact. Nasal turbinates are normal bilaterally. Dry oral mucosa. No oral thrush. NECK: Difficult to assess JVD due to the patient's body habitus. No carotid bruits. No neck stiffness. No cervical lymphadenopathy. CARDIOVASCULAR: Tachycardic. Regular rhythm. No murmurs, no rubs, no gallops. RESPIRATORY: Bibasilar crackles and diffuse wheezing. No rhonchi and no rales. Chest wall nontender to palpation. ABDOMEN: Obese, soft, nontender, and nondistended. Normal bowel sounds. Could not appreciate any hepatosplenomegaly or palpable mass. EXTREMITIES: +2 bilateral pitting edema below the knees all the way down to the ankles bilaterally. Right hip was not examined due to the fracture. There is no ecchymosis visible on the right hip. Sensation and strength of ankles and toes intact bilaterally. Weak dorsalis pedis and posterior tibialis pulses on palpation on the right and intact in the left. On doppler, audible on left and faint on right but present. No findings of compartment syndrome on physical exam in either lower extremity. NEUROLOGIC: Sensation intact in all 4 extremities. Range of motion limited PATIENT'S NAME: TEZ HTOMPSON [facility] AGE: 56 Y [address] ROOM: [place] [id number] [facility] ADMIT DATE: 09/05/2016 History & Physical DISCHARGE DATE: FAMILY PHYSICIAN: PHYSICIAN, UNKNOWN ATTENDING PHYSICIAN: ROLO DESIR on the right hip and it was not examined due to the fracture. Otherwise, grossly nonfocal. MUSCULOSKELETAL: Right hip not examined due to the fracture. All other three extremities unremarkable with normal range of motion. SKIN: No open ulcer. No cyanosis. No open fracture. GENITOURINARY: Not examined given that it is not related to this admission. LABORATORY DATA: ABG on 6 L nasal cannula showed pH 7.38, pCO2 of 42, pO2 of 106, bicarbonate 24.8, saturation 98% on 6 L. Lactic acid 1.7. Glycemia has been 59 followed by 84. Troponin 0.104, followed by 0.124, followed by 0.149. CPK is 707, followed by 738, followed by 742. ProBNP 4148 followed by 4619. CK-MB 16.4 followed by 17, followed by 16.4. White blood cell 17, hemoglobin 11.8, hematocrit 36.3, MCV 93.8, and platelet 181. Glucose 58, BUN 18, creatinine 1.0, sodium 133, potassium 4.6, chloride 100, CO2 of 24, calcium 7.5. Total protein 5.7, albumin 2.7, AST 36, ALT 21, alkaline phosphatase 435, total bilirubin 0.6, magnesium 2.2. GFR more than 60. Anion gap 13.6. Hemoglobin A1c 9.7. Lipid panel shows LDL of 45, total cholesterol 109, triglycerides 55, HDL 53. INR 1.0, PTT 29. Urinalysis pending. Acetone positive. Influenza screen pending. Procalcitonin 0.36. IMAGING STUDIES: Chest x-ray performed on admission, official reading is pending, no obvious pleural effusion. X-ray of the right femur shows comminuted fracture of the right hip based on the report given by the ER physician. CT of the brain without contrast and CT of the cervical spine based on the report given by the ER physician unremarkable. X-ray of the pelvis also showed right comminuted hip fracture according to ER physician based on his verbal report. EKG on admission on September 06, 2016, at 12:08 a.m. shows sinus tachycardia, heart rate 100, with no findings to suggest acute ischemia. RI 164 msec, QRS 93 msec, and QTc 437 msec. ASSESSMENT AND PLAN: 1. Right hip pain secondary to comminuted fracture of the right hip: The patient is at high risk for surgery if surgery is warranted; therefore at the moment, the patient is not medically cleared yet. I will consult Orthopedics in the morning. Orthopedics was not consulted by the ER upon arrival. Pain control with IV morphine p.r.n. and [place] p.o. p.r.n. 2. Hypoglycemia. This is caused by using Levemir 50 units subcutaneous PATIENT'S NAME: TEZ THOMPSON [facility] AGE: 56 Y [address] ROOM: [id number] [place], [place] [address] LOCATION: GPCU ADMIT DATE: 09/05/2016 History & Physical DISCHARGE DATE: FAMILY PHYSICIAN: PHYSICIAN, UNKNOWN ATTENDING PHYSICIAN: ROLO DESIR every morning with only eating one meal per day due to poor appetite. Check the fingerstick glucose every hour for now, monitor closely, and treat accordingly with dextrose 50%, oral glucose tablets or glucagon. The patient can also have juice. Currently, the most recent one is 108. Will monitor closely. Check HbA1c. 3. Acute on chronic systolic and diastolic combined congestive heart failure: Lasix 40 mg IV x1 right now and reassess. Patient has worsening bilateral extremity edema, bibasilar crackles, wheezing, and on 7-8L NC with saturating at 92% in ED. Strict in's and out's. Fluid restriction to less than 1.5 L per day. Keep the patient on oxygen with nasal cannula and titrate to keep the saturation 90% to 94%. He is a COPD patient and chronically on home oxygen. Reconcile the patient's home medications with the pharmacy in the morning. Further plan depends on clinical course. Patient is at high risk of developing cardiogenic shock given his EF of 15-20% in 03/2016. If he develops hypotension during this admission, cardiogenic shock is one of the differentials. 4. Acute on chronic hypoxemic respiratory failure secondary to chronic obstructive pulmonary disease exacerbation: On oxygen nasal cannula, to titrate for oxygen 90% to 94%. Levaquin 750 mg p.o. daily. Steroids and nebulizations as well as incentive spirometry and also flutter valve. I will get sputum culture and Gram stain. Check influenza antigen. Check urinary antigen for Legionella and pneumococcal. Mucinex extended release 1200 mg p.o. b.i.d. Repeat chest x-ray in the morning. I will consult Pulmonology in the morning given that the patient has a fractured right hip and will eventually require Pulmonary clearance. 5. Troponin elevation. The patient does not have any chest pain. EKG no acute ischemic changes. The troponin elevation as well as the CK and CK-MB elevation could be from demand ischemia due to hypoglycemia, stress, pain from the hip fracture, acute anemia, and also from his underlying coronary artery disease. I have already spoken to On-Call filter assembler, Dr. Cortez and given that the patient does not have any chest pain, EKG is nonischemic and patient has right hip fracture as well as acute anemia; therefore, for the moment we will not start heparin drip. We will monitor the hemoglobin in the morning closely and transfuse if necessary to keep the hemoglobin more than 10. We will keep cycling cardiac enzymes every 6 hours. EKG in the morning. We will get a transthoracic echo in the morning as well. Telemetry monitoring. Aspirin 81 mg p.o. daily, Lipitor 80 mg p.o. x1 right now and then daily, and Lopressor 25 mg p.o. b.i.d. with holding parameters if systolic blood pressure is less than 100 or heart rate less than 60. Further plan depends on clinical course. 6. Acute normocytic normochromic anemia: The last hemoglobin we have on file to compare was back in March 2016 was 16.9. Hematocrit was 47.2. On admission, hemoglobin dropped down to 11.8 and hematocrit 36.3. The patient states that he has history of hemorrhoids, but the last time he bled from hemorrhoids was like roughly one month ago. In the setting of right hip fracture and his acute anemia, I will start the patient on Protonix 40 mg p.o. b.i.d. and get a GI consult in the morning as well as perform Hemoccult stool study x3 and then check iron panel. The patient denies any history of GI bleeding in the past and he had EGD and PATIENT'S NAME: TEZ THOMPSON [facility] AGE: 56 Y [address] ROOM: [place] [address] LOCATION: [facility] ADMIT DATE: 09/05/2016 History & Physical DISCHARGE DATE: FAMILY PHYSICIAN: PHYSICIAN, UNKNOWN ATTENDING PHYSICIAN: ROLO DESIR colonoscopy many years ago and both were unremarkable according to the patient. Currently, the patient is not on any blood thinner according to the patient. Further plan depends on clinical course. Another consideration is if there is any vascular injury from the right hip fracture in settig of weak pulse in right dorsalis pedis and posterior tibialis. Will get CTA of bilateral lower extremities. 7. Regarding his preop clearance for surgery if warranted: High risk at this point, will need further workup including all the workups mentioned before and all the pending tests as well as the consultants including Cardiology, Pulmonology, and Gastroenterology. 8. DVT prophylaxis. Give lovenox subcu 40 mg daily. I confirmed with the filter assembler On-Call given that his risk of DVT is high from the right hip fracture. 9. The patient is a full code. Time spent on the day of admission was 80 minutes including chart review, interviewing and examining the patient, coordinating care with On-Call filter assembler, and addressing all the questions and concerns that the patient had and also going over the plan of care with the patient. MD EASTON MERCADO/sheldon /[id number] D: [id number] T: [id number] HISTORY & PHYSICAL
[~2016-09-05 21:37] MED LIST: ALBUTEROL2.5 MG/0.5 INH; ASPIRIN (CHILDR81 MG; ASPIRIN (CHILDR81 MG PO; ASPIRIN EC81 MG PO; AUGMENTIN875 MG PO; CIPRO500 MG PO; COREG 3.1253.125 MG; COREG 3.1253.125 MG PO; FLUPHENAZINE HC10 MG PO; GLUCOPHAGE XR500 M1; GLUCOPHAGE1000 MG PO; INDERAL20 MG PO; LEVEMIR FL100 UNIT/1 SUB-Q; LEVEMIR100 UNIT/1; LIPITOR20 M1; LIPITOR20 M1 PO; MAG-OX-400(241400 MG PO; NICODERM/HABITR21 MG TRANS; NORCO 5-325 MG1 TAB PO; NOVOLIN R100 UNIT/1; NOVOLOG100 UNIT/M SUB-Q; OLANZAPINE20 MG PO; PAXIL30 MG PO; PRINIVIL (ZESTRI5 MG; PRINIVIL (ZESTRI5 MG PO; PROLIXIN10 MG PO; PROLIXIN5 MG PO; SPIRIVA HANDIHA1 KIT INH; TOPAMAX100 MG PO; TOPROL XL25 MG PO; ZYPREXA10 MG PO; ZYPREXA20 MG PO
[2016-09-05 22:18] LABS: BASOPHIL % 0.2 %; EOSINOPHIL % 0.1 %; HEMATOCRIT 36.3 % (37.0-53.0); HEMOGLOBIN 11.8 g/dL (12.0-17.0); IMMATURE GRANULOCYTE # 0.1 K/uL (0.0-0.3); IMMATURE GRANULOCYTE % 0.6 %; LYMPHOCYTE # 1.4 K/uL (0.8-4.0); LYMPHOCYTE % 8.1 %; MCH 30.5 pg (27.0-34.0); MCHC 32.5 gm/dL (32.0-36.5); MCV 93.8 fl (83.0-98.0); MONOCYTE # 1.4 K/uL (0.0-1.0); MONOCYTE % 8.2 %; MPV 9.4 fl (9.4-12.4); NEUTROPHIL # (ANC) 14.1 K/uL (1.4-9.0); NEUTROPHIL % 82.8 %; NRBC % 0 /100WBC (0-0.00); PLATELET COUNT 181 K/uL (150-450); RBC 3.87 M/uL (4.00-6.00); RDW-CV 15.2 % (11.9-14.6)
[2016-09-05 22:26] LABS: INR - (THERAPEUTIC) 1.1 (0.9-1.1); PROTIME 11.1 SECONDS (9.6-11.1); PTT 29 SECONDS (25-32)
[2016-09-05 22:40] LABS: ALBUMIN 2.7 gm/dL (3.5-5.0); ALK PHOS 435 IU/L (33-138); ALT 21 IU/L (12-78); ANION GAP 13.6 (10.0-19.0); AST 36 IU/L (10-40); BLOOD UREA NITROGEN 18 mg/dL (6-24); CALCIUM 7.5 mg/dL (8.5-10.5); CHLORIDE 100 mMol/L (96-110); CO2 24 mMol/L (22-32); CPK 707 IU/L (35-332); ESTIMATED GFR (MDRD EQUATION) > 60; MAGNESIUM 2.2 mg/dL (1.3-2.6); POTASSIUM 4.6 mMol/L (3.7-5.1); SODIUM 133 mMol/L (135-145); TOTAL BILIRUBIN 0.6 mg/dL (0.0-1.5); TOTAL PROTEIN 5.7 g/dL (6.0-8.4)
[2016-09-06 01:10] LABS: BASOPHIL % 0.2 %; HEMOGLOBIN 10.6 g/dL (12.0-17.0); IMMATURE GRANULOCYTE # 0.1 K/uL (0.0-0.3); IMMATURE GRANULOCYTE % 0.5 %; LYMPHOCYTE # 1.3 K/uL (0.8-4.0); LYMPHOCYTE % 9.9 %; MCH 30.1 pg (27.0-34.0); MCHC 32.1 gm/dL (32.0-36.5); MCV 93.8 fl (83.0-98.0); MONOCYTE # 1.2 K/uL (0.0-1.0); MONOCYTE % 9.1 %; MPV 9.5 fl (9.4-12.4); NEUTROPHIL # (ANC) 10.3 K/uL (1.4-9.0); NEUTROPHIL % 80.3 %; NRBC % 0 /100WBC (0-0.00); PLATELET COUNT 158 K/uL (150-450); RBC 3.52 M/uL (4.00-6.00); RDW-CV 15.3 % (11.9-14.6); WBC 12.8 K/uL (4.0-11.0)
--- NOTE | 2016-09-06 02:16 | NUR ---
PATIENT ARRIVED ON UNIT AT 0110. VITAL SIGNS STABLE. 100% ON 5L NC. PULSE 102, BP 121/75, RESP 18. TEMP 97.4. BS AT THIS TIME WAS 108. WEIGHT WAS 93.4 KG. PATIENT 5 FOOT 9 INCH. PATIENT TRANSFERED TO PCU AT 0200 PER MARQUIS MCNEILL ORDERS. REPORT CALLED TO ANISA.
[2016-09-06 02:25] LABS: BICARBONATE 24.8 mmol/L (18.0-23.0); PCO2 42 mmHg (35-45); PO2 106 mmHg (80-90)
[2016-09-06 03:18] LABS: ANION GAP 15.6 (10.0-19.0); BLOOD UREA NITROGEN 18 mg/dL (6-24); CALCIUM 7.6 mg/dL (8.5-10.5); CHLORIDE 101 mMol/L (96-110); CO2 22 mMol/L (22-32); CREATININE 1.1 mg/dL (0.6-1.3); ESTIMATED GFR (MDRD EQUATION) > 60; MAGNESIUM 2.3 mg/dL (1.3-2.6); POTASSIUM 4.6 mMol/L (3.7-5.1); SODIUM 134 mMol/L (135-145)
--- NOTE | 2016-09-06 05:24 | NUR ---
PATIENT ARRIVED TO FLOOR FROM [facility] VIA CART AT 0200. DR DESIR SEEN ON [facility] BEFORE PATIENT WAS ADMITTED AND DECIDED PATIENT NEEDED TO COME TO OUR FLOOR. ORDERS WRITTEN THERE. VSS. IV INTACT TO RIGHT AC. STARTED ON Q2H VITALS AND Q1H ACCUCHECKS. C/O RIGHT HIP PAIN. NOTHING GIVEN AT THIS TIME. ACCORDING TO PATIENT, HE FELL AT HOME OUTSIDE AND FELT IMMEDIATE PAIN TO RIGHT HIP AND UNABLE TO GET UP. PATIENT CRAWLED TO HOUSE AND CALLED EMS. EMS TAKEN TO ER AND DISCOVERED BS WAS 33. AFTER GIVING A TOTAL OF 3 AMPS BS WAS 55. PATIENT ALLOWED TO EAT AND BLOOD SUGAR UP TO 108. PAST MEDICAL HISTORY OF AICD REMOVAL, STENTS X2, CHF, CAD, EF OF 15%, HTN, CURRENT SMOKING, HEMORRHOIDS, AND BLOODY/BLACK,TARRY STOOLS.
[2016-09-06 06:31] LABS: BILIRUBIN URINE NEGATIVE (NEGATIVE); BLOOD URINE NEGATIVE /UL (NEGATIVE); COLOR URINE YELLOW (YELLOW); GLUCOSE URINE NEGATIVE (NEGATIVE); KETONE URINE NEGATIVE (NEGATIVE); LEUKOCYTES URINE NEGATIVE /UL (NEGATIVE); NITRITE URINE NEGATIVE (NEGATIVE); PROTEIN URINE 15 mg/dL (NEGATIVE); SPEC GRAVITY URINE 1.015 (1.003-1.035); TURBIDITY URINE CLEAR (CLEAR); UROBILINOGEN URINE NORMAL (NORMAL)
[2016-09-06 06:47] LABS: RBC URINE NEGATIVE #/HPF (NEGATIVE)
[2016-09-06 06:48] LABS: BACTERIA URINE RARE (NEGATIVE); EPITHELIAL URINE RARE #/HPF (NEGATIVE); MUCUS URINE NEGATIVE (NEGATIVE)
[2016-09-06 07:07] LABS: HEMATOCRIT 31.9 % (37.0-53.0); HEMOGLOBIN 10.3 g/dL (12.0-17.0); MCH 30.1 pg (27.0-34.0); MCHC 32.3 gm/dL (32.0-36.5); MCV 93.3 fl (83.0-98.0); RBC 3.42 M/uL (4.00-6.00); RDW-CV 15.6 % (11.9-14.6)
--- NOTE | 2016-09-06 08:50 | NUR ---
Significant event: Alert, oriented x3, but forgetful. Doppled pulses to R) foot, very faint, thready. Edema to R) hip. BP 74/56, checked BP again consistently in 70's. MD notified. Orders to transfer to ICU for levophed gtt, and give 1 liter NS bolus. Dusky skin color. On 4L nc, lung sounds wheezy, diminished. Afebrile. Had CT of R) extremity due to pulses being weak. Still needs CT PA for high d-dimer. Consults called on patient & made aware of ICU transfer. Called patients Mother Nerissa, is aware of ICU transfer.
[2016-09-06] MEDS ORDERED: ATARAX25 MG PO (09:18)
[2016-09-06 10:06] LABS: HEMATOCRIT 33.1 % (37.0-53.0); HEMOGLOBIN 10.6 g/dL (12.0-17.0)
--- NOTE | 2016-09-06 11:04 | NUR ---
A-(-)MST; PT HAS HAD ~20 KG WT GAIN SINCE ADMIT IN 03/2016 S/P R)HIP FX; WILL GOT TO OR ONCE PT IS CLEARED. MEDICAL HX: COPD; ON 5L OF O2 AT HOME, SMOKES 1 PPD. PSYCH HX. HT: 5'9" WT: 93.4 KG. 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 PT REPORTS POOR APPETITE OVER THE LAST FEW DAYS; WAS STILL TAKING LEVEMIR. EST NUTR NEEDS: [id number] KCALS (15-20 KCALS/KG) 110-146 GM PROTEIN (1.5-2.0 GM/KG IBW) 1 ML FLUID/KCAL D-PT AT NUTRITION RISK W/RECENT INADEQUATE OF NUTRIENTS R/T POOR APPETITE AEB PT REPORT. I-WILL ADD APPROPRIATE NUTRITION INTERVENTIONS NEEDED, WHEN DIET RX IS ORDERED. M/E-START DIET RX WHEN MEDICALLY INDICATED 1)F/U DIET RX, PO INTAKE, AND PO IN 3-5 DAYS 2)WILL ASSIST NEEDED
[2016-09-06 12:37] LABS: BILIRUBIN URINE NEGATIVE (NEGATIVE); BLOOD URINE 10 /UL (NEGATIVE); GLUCOSE URINE NEGATIVE (NEGATIVE); KETONE URINE NEGATIVE (NEGATIVE); LEUKOCYTES URINE 25 /UL (NEGATIVE); NITRITE URINE NEGATIVE (NEGATIVE); PROTEIN URINE 15 mg/dL (NEGATIVE); SPEC GRAVITY URINE 1.015 (1.003-1.035); UROBILINOGEN URINE NORMAL (NORMAL)
[2016-09-06 12:40] LABS: COLOR URINE YELLOW (YELLOW); TURBIDITY URINE CLEAR (CLEAR)
[2016-09-06 13:04] LABS: EPITHELIAL URINE 0-2 #/HPF (NEGATIVE); RBC URINE RARE #/HPF (NEGATIVE)
[2016-09-06 13:05] LABS: BACTERIA URINE FEW (NEGATIVE); MUCUS URINE 1+ (NEGATIVE)
[2016-09-06 13:06] LABS: HYALINE CAST URINE 0-2 #/LPF (NEGATIVE)
[2016-09-06 15:19] LABS: HEMATOCRIT 32.1 % (37.0-53.0); HEMOGLOBIN 10.6 g/dL (12.0-17.0)
--- NOTE | 2016-09-06 16:15 | NUR ---
Significant Event:Patient is A/Ox3, follows all commands. Denies numbness/tingling in any extremity. SR with HR 70-80's. To keep SBP>88 and MAP>65 to titrate levophed. Levophed currently at 0.1mcg/kg/min. Was given 1L NS bolus prior to transferring from unit. 3L NC, lungs auscultated clear/diminished with occasional fine crackles. C/O SOB at times. Active bowel sounds, no BM. Cardiac/ADA diet, tolerates well. PRN 25mg fentanyl given x1 for right hip pain, did come down to a more tolerable level. Right upper forearm picc placed today. Surgery on hold to fix ORIF. CT of abdomen and for PE protocol done today. Echo done at bedside, with EF at 10%. Pulses: radial 2, and dopple pedal and post tib. Accuchecks AC/HS since no longer NPO. Hematest x3 stools, first done and is negative. Follow up:Continue to monitor h/h. Continue to titrate levophed.
[2016-09-06 20:18] LABS: ANION GAP 17.4 (10.0-19.0); CREATININE 1.5 mg/dL (0.6-1.3); POTASSIUM 5.4 mMol/L (3.7-5.1)
[2016-09-06 20:19] LABS: CALCIUM 7.3 mg/dL (8.5-10.5)
[2016-09-06 22:05] LABS: INR - (THERAPEUTIC) 1.1 (0.9-1.1); PROTIME 12.1 SECONDS (9.6-11.1)
--- NOTE | 2016-09-07 00:06 | NUR ---
PER DR. ANDREWS AND DR. DESIR, PATIENT NEEDS TRANSFERED TO [facility] FOR POSSIBLE LVAD. DR. DESIR SPOKE WITH PATIENT ABOUT TRANSFER, HE NOTIFIED PATIENT'S MOTHER, SHARI, AND SISTER, FLORA. PATIENT AGREES TO THE TRANSPORT. PATIENT IS A/O, FORGETFUL AT TIMES BUT APPROPRIATE. SR WITH PVC'S, HR 80'S. ARTLINE PLACED BY DR. BLAIR. ARTLINE PRESSURES 120-130'S. LEVO WEANED TO 0.1MCG/KG/MIN PRIOR TO TRANSPORT. CUFF BP READING 90-100'S. 2-3+ PITTING EDEMA TO BILATERAL LEGS, PULSES DOPPLED IN BILAT FEET, MORE DIFFICULT ON R) THAN L). GENERALIZED EDEMA. 3L O2. LUNG SOUNDS CLEAR/DIM AND DIM. DENIES SOB. ABDOMEN DISTENDED, SLIGHTLY FIRM, ACTIVE BOWEL SOUNDS. NO BM SINCE ADMIT. SHIPLEY HAD ADEQUATE UOP. D51/2 NS AT 50ML/HR. GAVE 10 UNITS REGULAR INSULINE AND 1/2 AMP OF D50 ALONG WITH 30GM OF KAYEXELATE PRIOR TO TRANSPORT. ALSO GAVE A 4000 UNITS BOLUS OF HEPARIN AND STARTED A HEPARIN GTT AT 1000UNITS/HR. INITIAL DOSED ZOSYN PRIOR TO LEAVING. PATIENT HAD RECEIVED NORCO 1 TAB EARLIER IN SHIFT. FLIGHT CREW PACKAGED PATIENT AND LEFT ROOM AT 2245. REPORT WAS CALLED TO SANDIP IN ICU AT [facility].
== END 2016-09-06 22:45 | disposition hospice, home (50) | DRG 291 ==
LOC: GACC 21:37 → GPCU 23:39 → GICU 23:39 → GMSU 23:39 → GPCU 09-06 01:39 → GICU 09-06 08:17
PROVIDERS: Emergency Medicine; Family Medicine; ADMIT Internal Medicine
PROC: 02HV33Z Insertion of Infusion Device into Superior Vena Cava, Percutaneous Approach (ICD-10-PCS; principal; 2016-09-06)
PROC: 03HC33Z Insertion of Infusion Device into Left Radial Artery, Percutaneous Approach (ICD-10-PCS; 2016-09-06)
DX: I11.0 Hypertensive heart disease with heart failure (principal); S72.141A Displaced intertrochanteric fracture of right femur, initial encounter for closed fracture; J96.21 Acute and chronic respiratory failure with hypoxia; R57.0 Cardiogenic shock; I95.9 Hypotension, unspecified; N17.9 Acute kidney failure, unspecified; I42.0 Dilated cardiomyopathy; E11.51 Type 2 diabetes mellitus with diabetic peripheral angiopathy without gangrene; N28.0 Ischemia and infarction of kidney; J44.0 Chronic obstructive pulmonary disease with (acute) lower respiratory infection; E11.649 Type 2 diabetes mellitus with hypoglycemia without coma; I70.1 Atherosclerosis of renal artery; G47.36 Sleep related hypoventilation in conditions classified elsewhere; I50.43 Acute on chronic combined systolic (congestive) and diastolic (congestive) heart failure; W00.0XXA Fall on same level due to ice and snow, initial encounter; E11.65 Type 2 diabetes mellitus with hyperglycemia; Z79.4 Long term (current) use of insulin; I25.5 Ischemic cardiomyopathy; I25.10 Atherosclerotic heart disease of native coronary artery without angina pectoris; Z95.5 Presence of coronary angioplasty implant and graft; D64.9 Anemia, unspecified; F17.210 Nicotine dependence, cigarettes, uncomplicated; F31.9 Bipolar disorder, unspecified; F20.9 Schizophrenia, unspecified; Z99.81 Dependence on supplemental oxygen; Z91.14 Patient's other noncompliance with medication regimen; E66.9 Obesity, unspecified; Z68.30 Body mass index [BMI] 30.0-30.9, adult; E78.5 Hyperlipidemia, unspecified; I25.2 Old myocardial infarction; Z79.82 Long term (current) use of aspirin; Z79.52 Long term (current) use of systemic steroids; Z79.899 Other long term (current) drug therapy
CPT/HCPCS: C1751; C1894; C9113; J1644; J1940; J2270; J2543; J3010; J7030; J7040; J7060; J7512; J7612; Q9967

== ENCOUNTER 2016-12-22 13:19 | Inpatient (IN) | payer MEDICARE, MEDICAID ==
[~2016-12-22] VITALS: Ht 175.3 cm; Wt 73.7 kg
--- NOTE | ~2016-12-22 | CON ---
PATIENT'S NAME: GONZALEZ [facility]PSON [facility] AGE: 56 Y [address] ROOM: [id number] [place], [place] [address] LOCATION: GPCU ADMIT DATE: 12/23/2016 Consultation DISCHARGE DATE: FAMILY PHYSICIAN: Jose Miguel Clemente MD ATTENDING PHYSICIAN: Jose Miguel Clemente REFERRING PHYSICIAN: Gonzalez Villanueva DO REFERRING PHYSICIAN: Jose Miguel Clemente M.D. REASON FOR CONSULT: Acute on chronic systolic heart failure and ischemic cardiomyopathy. HISTORY OF PRESENT ILLNESS: This is a 56-year-old gentleman, who presented to the emergency room with complaints of swelling "all over his body" that has been getting worse over the past few weeks. Two days prior, he returned home after being in a skilled facility in [place] after he was treated for a fractured hip from a fall. This was in September of this year. He was discharged from the [facility] after his right hip fracture 09/20/2016. During that hospitalization, he was diuresed and had lost 37 pounds and was discharged at 180 pounds. He underwent intramedullary fixation of the comminuted intertrochanteric right proximal femur fracture on 09/12/2016. It was found at that time to have an intramuscular hematoma with moderate stenosis of bilateral external iliacs. He had received consultations with Cardiology, Endocrinology as well as Orthopedic personnel, and [employer] personnel. He was not a candidate for a redo of his BiV ICD after his explant due to tobacco abuse, serious psychiatric issues, and a track record of medication nonadherence. He had Home Health checking in on him. When they went to his house today, they noted that he had significant amount of swelling around his legs, scrotum, and abdomen, and he was unable to take care of himself. He was incontinent of urine as well as stool. There was bruising noted to bilateral arms. He had scabs noted on his elbow, small cuts to his wrist, and scratches to his mid lower back and elbows that were dry. His feet, scrotum, legs, hips, and upper thighs were swollen, red, and warm to touch. He reports that his sister lives in a different state, but she had come to bring him home when he was discharged from the nursing facility. He reports that he has had maroon-colored stools. He does complain of some mild shortness of breath with activity. He is ambulating with a walker. He has mild orthopnea. He has not noted any palpitations, but he does have intermittent shortness of breath even at rest. PAST MEDICAL HISTORY: 1. Ischemic cardiomyopathy, EF 15% to 20% on 07/19/2016. He had explant of PATIENT'S NAME: GONZALEZ [facility] AGE: 56 Y [address] ROOM: [address] [address] LOCATION: GPCU ADMIT DATE: 12/23/2016 Consultation DISCHARGE DATE: FAMILY PHYSICIAN: Jose Miguel Clemente MD ATTENDING PHYSICIAN: Jose Miguel Clemente the BiV ICD due to infection on 07/20/2015. 2. Coronary artery disease with myocardial infarction of the anterior wall in 2005, PTCI-stent LAD. 3. Dyslipidemia. 4. Nocturnal hypoxia, to be using oxygen 2 L h.s. 5. Essential hypertension. 6. Diabetes mellitus type 2. 7. History of tobacco use. 8. Bipolar disease. 9. Pneumonia, 07/19/2016. 10. COPD. 11. Diastolic heart failure, history of cardiogenic shock on 09/05/2016 after a fall and hip fracture. PAST SURGICAL HISTORY: 1. Knee surgery. 2. Left heart catheterization, PTCI-stent LAD, 01/01/2006. 3. Left heart catheterization, PTCA-stent distal LAD with patent previous stents, 03/06/2006. 4. Dual-chamber ICD placement with generator insertion, 06/01/2009. 5. Upgrade to BiV ICD [employer]onic, 09/16/2011. 6. Foot surgery in 2011. 7. Explant of leads and device, BiV ICD, at [facility] due to erosion of pacemaker pocket, 07/10/2015. 8. Intramedullary fixation of comminuted intertrochanteric fracture of the right proximal femur, 09/12/2016 with evacuation of intramuscular hematoma at [facility]. ALLERGIES: NONE TO MEDICATION. HOME MEDICATIONS: 1. Acetaminophen 325 mg p.r.n. 2. Amiodarone 400 mg p.o. daily. 3. Aspirin 81 mg daily. 4. Atorvastatin 40 mg h.s. 5. Vitamin D3, 2000 units daily. 6. NovoLog insulin 0 to 8 units subcu, mild insulin sliding scale. 7. Lorazepam 0.5 mg every 4 hours p.r.n. 8. Nicotine patch 14 mg every day. 9. Zyprexa 20 mg h.s. 10. Oxycodone 5 mg every 4 hours p.r.n. for pain. 11. Paxil 60 mg h.s. 12. Spironolactone 25 mg p.o. every day a.m. and 12.5 mg in the evening. 13. Tamsulosin 0.4 mg every h.s. PATIENT'S NAME: GONZALEZ [facility] AGE: 56 Y [address] ROOM: [address] [address] LOCATION: GPCU ADMIT DATE: 12/23/2016 Consultation DISCHARGE DATE: FAMILY PHYSICIAN: Jose Miguel Clemente MD ATTENDING PHYSICIAN: Jose Miguel Clemente 14. Torsemide 20 mg p.o. every day. SOCIAL HISTORY: He is an active smoker, 2 to 3 cigarettes a day since he was 11 years old. He had been smoking up to 2 packs of cigarettes a day. He does not drink alcohol. He is . FAMILY HISTORY: Father had myocardial infarction in his 60s. Mother is alive and well. He has one brother and 3 sisters. REVIEW OF SYSTEMS: GENERAL: He has been gaining water weight over the past 3 weeks. HEAD: No history of headaches. EYES: No blurred vision or double vision. EARS: No change in hearing. NOSE: No epistaxis or rhinorrhea. MOUTH: No gingival bleeding. THROAT: Denies sore throat, hoarseness, or difficulty swallowing. PULMONARY: He denies cough or wheezing, but he does complain of shortness of breath with some orthopnea. GI: He has had some melanotic stools. No history of heartburn. No nausea or vomiting. No diarrhea. : Negative for dysuria, polyuria, or hematuria. No problems with frequent urination. He has had problems with urinary retention even at [facility] and currently has a Peterson catheter. ENDOCRINE: He is doing better with his diabetes since he has been institutionalized with a hemoglobin A1c of 7.5. NEUROLOGIC: He denies depression or anxiety. No numbness or tingling. DERMATOLOGIC: He has multiple scratches and lesions noted on his skin. HEMATOLOGIC: He denies anemia. MUSCULOSKELETAL: He is still recovering from femur fracture. PHYSICAL EXAMINATION: VITAL SIGNS: He is 5 feet and 9 inches. His weight is 99.1 kg. Blood pressure is 141/99. Heart rate is in the 90s, sinus rhythm with frequent PVCs. He is afebrile. GENERAL: He is sleepy, but arouses easily. SKIN: Warm, dry, and pink. HEENT: Pupils equal, round, and react briskly. NECK: Soft and supple. No lymphadenopathy. No thyromegaly. JVD is elevated. CHEST: His pacemaker pocket in the left chest is well approximated. Lung sounds were very diminished posteriorly with rales noted. PATIENT'S NAME: GONZALEZ [facility] AGE: 56 Y [address] ROOM: [address] [address] LOCATION: GPCU ADMIT DATE: 12/23/2016 Consultation DISCHARGE DATE: FAMILY PHYSICIAN: Jose Miguel Clemente MD ATTENDING PHYSICIAN: Jose Miguel Clemente CV: Regular with frequent PVCs to normal S1 and S2 with grade 2/6 systolic ejection murmur heard at the left parasternal area. ABDOMEN: Tight. Positive bowel sounds are noted. EXTREMITIES: Show 2+ peripheral edema up through the scrotum and into his back. SKIN: Warm and dry. He does have multiple abrasions noted. PSYCHIATRIC: Mood and affect are flat. LABORATORY DATA: Cardiac enzymes are negative. ProBNP is 4847. Hemoglobin is 12.4, hematocrit 38.6, and platelets are 172. Glucose 158, BUN 9, and creatinine 1.1. His sodium initially was 128 with potassium of 4.0, now 3.2. Magnesium was 1.9. Hemoglobin A1c was 7.5. ASSESSMENT: 1. Acute on chronic systolic heart failure. He did receive Lasix over the weekend as an infusion and now is off all diuretics. We are going to continue with his Lasix diuresing. We will monitor his creatinine closely with this. 2. Coronary artery disease. He is not experiencing any exertional chest pain. 3. Nocturnal hypoxia. Would recommend that he continue current oxygen therapy at night. 4. Diabetes mellitus. He will follow up with his primary care physician. 5. Tobacco abuse. He is to continue with the nicotine patch. 6. Essential hypertension. Currently, blood pressure is under good control. The assessment and plan, history of present illness, and physical exam are per Dr. Linda. SELENA WRIGHT APRN FOR MD S[facility]/cesial /[id number] d: 12/24/16 1836 t: 01/03/17 1159, CONSULTATION REPORT
--- NOTE | ~2016-12-22 | HP ---
PATIENT'S NAME: TEZ THOMPSON [facility] AGE: 56 Y [address] ROOM: [id number] [place], [place] [address] LOCATION: GPCU ADMIT DATE: 12/22/2016 History & Physical DISCHARGE DATE: FAMILY PHYSICIAN: Jose Miguel Clemente MD ATTENDING PHYSICIAN: Jose Miguel Clemente DATE OF SERVICE: CHIEF COMPLAINT: "I am swollen". HISTORY OF PRESENT ILLNESS: Mr. Thompson is a 56-year-old male with past medical history significant for congestive heart failure with EF of 15% in September 2016, bipolar disorder, cardiomyopathy, coronary artery disease, depressive disorder, hypertension, and hyperlipidemia among several others, who presents as admission to the [facility] PCU from the [facility] Emergency Department for significant swelling. The patient has extensive history which started with a hip fracture approximately 4 months ago. [facility] was [facility], where he underwent a hip fracture repair as well as a workup for his cardiac issues. He was transferred to a skilled unit similar to the transitional care here and was just discharged on Tuesday, December 20, 2016. The patient was brought home by family members including a sister and his mother. Because of significant swelling, shortness of breath, and overall just failure to thrive, the patient was then brought back to the emergency department for further evaluation and management. Upon reaching the Emergency Department, the patient had a blood pressure of 138/93, pulse 99, respirations 16, temperature 97.7, and oxygen was 92% on room air. The patient was given some diuresis. A Cardiology consult was requested at that time as well. Upon my discussion with the patient, he was feeling relatively well except for the significant amount of swelling he was having throughout his body. The most bothersome to him was swelling in his testicles, which he told me really hurt. Additionally, he did endorse that he would occasionally have maroon- colored stools, but otherwise specifically deny nausea, vomiting, diarrhea, or constipation. No headaches. No fevers or chills. No cough. Did endorse shortness of breath. He endorsed a full body swelling. No significant joint pains other than some leg pain of the right. No skin rashes. States his mood has overall been pretty good. He had no other complaints. REVIEW OF SYSTEMS: Full 12-point review of systems was performed of the patient and negative except for those noted in the HPI. PATIENT'S NAME: TEZ THOMPSON [facility] AGE: 56 Y [address] ROOM: [place] [address] LOCATION: GPCU ADMIT DATE: 12/22/2016 History & Physical DISCHARGE DATE: FAMILY PHYSICIAN: Jose Miguel Clemente MD ATTENDING PHYSICIAN: Jose Miguel Clemente MEDICATIONS: Please see nursing notes for medication list. ALLERGIES: NO KNOWN DRUG ALLERGIES. PAST MEDICAL HISTORY: 1. Bipolar disorder. 2. Schizophrenia. 3. Previous tobacco use disorder. 4. Myocardial infarction. 5. Congestive heart failure, systolic, EF of 15% in September 2016. 6. Coronary artery disease, single-vessel disease to the right coronary artery. 7. Diabetes mellitus type 2, uncontrolled. 8. Depression. 9. Hyperlipidemia. 10. Hypertension. 11. Dilated ischemic cardiomyopathy. 12. COPD, on home oxygen, on and off during the day, but at night the patient wears it most of the time. 13. Diastolic congestive heart failure with grade 1 diastolic dysfunction. PAST SURGICAL HISTORY: 1. Colonoscopy, 2007. 2. Foot surgery. 3. Coronary artery catheterization, 2006 with a drug-eluting stent placed in the LAD. 4. Status post dual chamber pacemaker implantation in 2008 with upgrade to biventricular ICD in 2010 and removal in 2015 secondary to infection. 5. Knee surgery. FAMILY HISTORY: The patient's father from myocardial infarction at age 83; mother is healthy and 87 years' old without any medical problems according to the patient. He also has 1 brother and 3 sisters. He had 1 brother who from a car accident in approximately 20 years ago. SOCIAL HISTORY: The patient was living for 2 days with his mother and sister here in town. He reports starting smoking at age 11 and discontinuing at age 56. He smoked on average about 1 pack per day. Denies any illicit street drug use. Additionally, the patient was drinking about 12 beers per month, but discontinued that at the time of his hip fracture. PATIENT'S NAME: TEZ THOMPSON [facility] AGE: 56 Y [address] ROOM: [place] [address] LOCATION: GPCU ADMIT DATE: 12/22/2016 History & Physical DISCHARGE DATE: FAMILY PHYSICIAN: Jose Miguel Clemente MD ATTENDING PHYSICIAN: Jose Miguel Clemente PHYSICAL EXAMINATION: VITAL SIGNS: As per HPI. GENERAL: A pleasant, interactive adult male, who appears much older than stated age, lying comfortably in the hospital bed. HEAD: Normocephalic, atraumatic. EYES: Conjunctivae clear. Sclerae white. ENT: Mucous membranes are moist. Nasal cannula is in place. NECK: Supple. Trachea is midline. HEART: Regular rate and rhythm without murmurs, rubs, clicks, or gallops. LUNGS: Somewhat distant sounds, but clear to auscultation bilaterally with decreased sounds on the right base. ABDOMEN: Soft, nontender, nondistended. There is significant edema present throughout that is pitting. The patient also has umbilical hernia present. EXTREMITIES: Warm, well perfused with significant pitting edema 3+ to the point of anasarca. GENITALIA: The patient has severely enlarged, swollen testicles bilaterally. SKIN: Tattoos present, but no rashes or acute findings. NEUROLOGIC: Cranial nerves 2 through 12 grossly intact. No focal deficits. LABORATORY AND X-RAY: As per HPI. IMPRESSION/REPORT/PLAN: A 56-year-old gentleman with anasarca secondary to ischemic dilated cardiomyopathy. 1. Ischemic dilated cardiomyopathy with significant congestive heart failure, acute on chronic, ejection fraction of 10% to 15% in September 2016. 2. Diastolic congestive heart failure, acute on chronic, with a grade 1 diastolic dysfunction. 3. Anasarca secondary to ischemic dilated cardiomyopathy with significant congestive heart failure, acute on chronic, ejection fraction of 10% to 15% in September 2016 and diastolic congestive heart failure, acute on chronic, with a grade 1 diastolic dysfunction. I discussed with the patient that I have consulted Cardiology who has graciously seen the patient and ordered Lasix infusion. They have also ordered an echocardiogram for the morning to further evaluate. The patient is massively swollen. Alexx wraps to the lower extremities and elevation may be helpful. We will also want do strict intake and output as much as possible. We will have Cardiology manage the diuresis at this point in time. We will continue to follow with other medical problems. 4. History of maroon-colored stools: The patient does report there is a history of maroon-colored stools. We will go ahead with Hemoccult of stools and see if there is anything that would need to be evaluated PATIENT'S NAME: TEZ THOMPSON [facility] AGE: 56 Y [address] ROOM: [id number] [place] [id number] LOCATION: GPCU ADMIT DATE: 12/22/2016 History & Physical DISCHARGE DATE: FAMILY PHYSICIAN: Jose Miguel Clemente MD ATTENDING PHYSICIAN: Jose Miguel Clemente further at some point in time. Hemoglobin today does look good and there is no significant concern for blood loss anemia currently. 5. Hypertension, controlled. Continue with the patient's home medication regimen. 6. Hyperlipidemia. Continue with the patient's home medication regimen. 7. Diabetes mellitus type 2 with hyperglycemia, A1c 7.5 on 12/22/2016. Continue with the patient's sliding scale insulin for now. May consider transition to a home regimen. 8. Anxiety, history of schizophrenia, and history of bipolar disorder, all appear to be stable at this point in time. Continue with Zyprexa, Ativan, and Paxil. 9. Benign prostatic hyperplasia. We will continue with tamsulosin. 10. Chronic obstructive pulmonary disease with chronic hypoxic respiratory failure. The patient is typically on oxygen at home. He is about 80% to 89% here. We will keep him above 90%, but not greater than 93% or 94%. I did congratulate the patient on his tobacco cessation. 11. The patient is hyponatremic with a low chloride at 93. Calcium also happened to be low as is his albumin at 3.1. We will need to closely watch his electrolytes with a BMP in the morning, especially in the setting of a Lasix drip. FLUIDS: None. NUTRITION: Cardiac diet. CODE STATUS: Full code per my discussion with the patient. PROPHYLAXIS: Lovenox. DISPOSITION: It is my understanding that the patient's primary care provider, Dr. Jose Miguel Clemente is in town. I will hand off to Dr. Clemente. Should he be unavailable, I will assume care of the patient throughout his hospitalization. CRISTAL ACUÑA MD BAB/modl PATIENT'S NAME: TEZ THOMPSON [facility] AGE: 56 Y [address] ROOM: [address] [address] LOCATION: [facility] ADMIT DATE: 12/22/2016 History & Physical DISCHARGE DATE: FAMILY PHYSICIAN: Jose Miguel Clemente MD ATTENDING PHYSICIAN: Jose Miguel Clemente /[id number] D: [id number] T: [id number] HISTORY & PHYSICAL
--- NOTE | ~2016-12-22 | CON ---
PATIENT'S NAME: GONZALEZ THOMPSON [facility] AGE: 56 Y [address] ROOM: G6322 [place], [place] [address] LOCATION: GPCU ADMIT DATE: 12/23/2016 Consultation DISCHARGE DATE: FAMILY PHYSICIAN: Jose Miguel Clemente MD ATTENDING PHYSICIAN: Jose Miguel Clemente REFERRING PHYSICIAN: Gonzalez Villanueva DO REFERRING PHYSICIAN: Jose Miguel Clemente M.D. REASON FOR CONSULT: Acute on chronic systolic heart failure and ischemic cardiomyopathy. HISTORY OF PRESENT ILLNESS: This is a 56-year-old gentleman, who presented to the emergency room with complaints of swelling "all over his body" that has been getting worse over the past few weeks. Two days prior, he returned home after being in a skilled facility in [place] after he was treated for a fractured hip from a fall. This was in September of this year. He was discharged from the [facility] after his right hip fracture 09/20/2016. During that hospitalization, he was diuresed and had lost 37 pounds and was discharged at 180 pounds. He underwent intramedullary fixation of the comminuted intertrochanteric right proximal femur fracture on 09/12/2016. It was found at that time to have an intramuscular hematoma with moderate stenosis of bilateral external iliacs. He had received consultations with Cardiology, Endocrinology as well as Orthopedic personnel, and It Quality Analyst personnel. He was not a candidate for a redo of his BiV ICD after his explant due to tobacco abuse, serious psychiatric issues, and a track record of medication nonadherence. He had Home Health checking in on him. When they went to his house today, they noted that he had significant amount of swelling around his legs, scrotum, and abdomen, and he was unable to take care of himself. He was incontinent of urine as well as stool. There was bruising noted to bilateral arms. He had scabs noted on his elbow, small cuts to his wrist, and scratches to his mid lower back and elbows that were dry. His feet, scrotum, legs, hips, and upper thighs were swollen, red, and warm to touch. He reports that his sister lives in a different state, but she had come to bring him home when he was discharged from the nursing facility. He reports that he has had maroon-colored stools. He does complain of some mild shortness of breath with activity. He is ambulating with a walker. He has mild orthopnea. He has not noted any palpitations, but he does have intermittent shortness of breath even at rest. PAST MEDICAL HISTORY: 1. Ischemic cardiomyopathy, EF 15% to 20% on 07/19/2016. He had explant of PATIENT'S NAME: GONZALEZ THOMPSON [facility] AGE: 56 Y [address] ROOM: [address] [address] LOCATION: GPCU ADMIT DATE: 12/23/2016 Consultation DISCHARGE DATE: FAMILY PHYSICIAN: Jose Miguel Clemente MD ATTENDING PHYSICIAN: Jose Miguel Clemente the BiV ICD due to infection on 07/20/2015. 2. Coronary artery disease with myocardial infarction of the anterior wall in 2005, PTCI-stent LAD. 3. Dyslipidemia. 4. Nocturnal hypoxia, to be using oxygen 2 L h.s. 5. Essential hypertension. 6. Diabetes mellitus type 2. 7. History of tobacco use. 8. Bipolar disease. 9. Pneumonia, 07/19/2016. 10. COPD. 11. Diastolic heart failure, history of cardiogenic shock on 09/05/2016 after a fall and hip fracture. PAST SURGICAL HISTORY: 1. Knee surgery. 2. Left heart catheterization, PTCI-stent LAD, 01/01/2006. 3. Left heart catheterization, PTCA-stent distal LAD with patent previous stents, 03/06/2006. 4. Dual-chamber ICD placement with generator insertion, 06/01/2009. 5. Upgrade to BiV ICD Medtronic, 09/16/2011. 6. Foot surgery in 2011. 7. Explant of leads and device, BiV ICD, at [facility] due to erosion of pacemaker pocket, 07/10/2015. 8. Intramedullary fixation of comminuted intertrochanteric fracture of the right proximal femur, 09/12/2016 with evacuation of intramuscular hematoma at [facility]. ALLERGIES: NONE TO MEDICATION. HOME MEDICATIONS: 1. Acetaminophen 325 mg p.r.n. 2. Amiodarone 400 mg p.o. daily. 3. Aspirin 81 mg daily. 4. Atorvastatin 40 mg h.s. 5. Vitamin D3, 2000 units daily. 6. NovoLog insulin 0 to 8 units subcu, mild insulin sliding scale. 7. Lorazepam 0.5 mg every 4 hours p.r.n. 8. Nicotine patch 14 mg every day. 9. Zyprexa 20 mg h.s. 10. Oxycodone 5 mg every 4 hours p.r.n. for pain. 11. Paxil 60 mg h.s. 12. Spironolactone 25 mg p.o. every day a.m. and 12.5 mg in the evening. 13. Tamsulosin 0.4 mg every h.s. PATIENT'S NAME: GONZALEZ THOMPSON [facility] AGE: 56 Y [address] ROOM: [address] [address] LOCATION: GPCU ADMIT DATE: 12/23/2016 Consultation DISCHARGE DATE: FAMILY PHYSICIAN: Jose Miguel Clemente MD ATTENDING PHYSICIAN: Jose Miguel Clemente 14. Torsemide 20 mg p.o. every day. SOCIAL HISTORY: He is an active smoker, 2 to 3 cigarettes a day since he was 11 years old. He had been smoking up to 2 packs of cigarettes a day. He does not drink alcohol. He is . FAMILY HISTORY: Father had myocardial infarction in his 60s. Mother is alive and well. He has one brother and 3 sisters. REVIEW OF SYSTEMS: GENERAL: He has been gaining water weight over the past 3 weeks. HEAD: No history of headaches. EYES: No blurred vision or double vision. EARS: No change in hearing. NOSE: No epistaxis or rhinorrhea. MOUTH: No gingival bleeding. THROAT: Denies sore throat, hoarseness, or difficulty swallowing. PULMONARY: He denies cough or wheezing, but he does complain of shortness of breath with some orthopnea. GI: He has had some melanotic stools. No history of heartburn. No nausea or vomiting. No diarrhea. : Negative for dysuria, polyuria, or hematuria. No problems with frequent urination. He has had problems with urinary retention even at [facility] and currently has a Peterson catheter. ENDOCRINE: He is doing better with his diabetes since he has been institutionalized with a hemoglobin A1c of 7.5. NEUROLOGIC: He denies depression or anxiety. No numbness or tingling. DERMATOLOGIC: He has multiple scratches and lesions noted on his skin. HEMATOLOGIC: He denies anemia. MUSCULOSKELETAL: He is still recovering from femur fracture. PHYSICAL EXAMINATION: VITAL SIGNS: He is 5 feet and 9 inches. His weight is 99.1 kg. Blood pressure is 141/99. Heart rate is in the 90s, sinus rhythm with frequent PVCs. He is afebrile. GENERAL: He is sleepy, but arouses easily. SKIN: Warm, dry, and pink. HEENT: Pupils equal, round, and react briskly. NECK: Soft and supple. No lymphadenopathy. No thyromegaly. JVD is elevated. CHEST: His pacemaker pocket in the left chest is well approximated. Lung sounds were very diminished posteriorly with rales noted. PATIENT'S NAME: GONZALEZ THOMPSON [facility] AGE: 56 Y [address] ROOM: [address] [address] LOCATION: GPCU ADMIT DATE: 12/23/2016 Consultation DISCHARGE DATE: FAMILY PHYSICIAN: Jose Miguel Clemente MD ATTENDING PHYSICIAN: Jose Miguel Clemente CV: Regular with frequent PVCs to normal S1 and S2 with grade 2/6 systolic ejection murmur heard at the left parasternal area. ABDOMEN: Tight. Positive bowel sounds are noted. EXTREMITIES: Show 2+ peripheral edema up through the scrotum and into his back. SKIN: Warm and dry. He does have multiple abrasions noted. PSYCHIATRIC: Mood and affect are flat. LABORATORY DATA: Cardiac enzymes are negative. ProBNP is 4847. Hemoglobin is 12.4, hematocrit 38.6, and platelets are 172. Glucose 158, BUN 9, and creatinine 1.1. His sodium initially was 128 with potassium of 4.0, now 3.2. Magnesium was 1.9. Hemoglobin A1c was 7.5. ASSESSMENT: 1. Acute on chronic systolic heart failure. He did receive Lasix over the weekend as an infusion and now is off all diuretics. We are going to continue with his Lasix diuresing. We will monitor his creatinine closely with this. 2. Coronary artery disease. He is not experiencing any exertional chest pain. 3. Nocturnal hypoxia. Would recommend that he continue current oxygen therapy at night. 4. Diabetes mellitus. He will follow up with his primary care physician. 5. Tobacco abuse. He is to continue with the nicotine patch. 6. Essential hypertension. Currently, blood pressure is under good control. The assessment and plan, history of present illness, and physical exam are per Dr. Linda. SELENA WRIGHT APRN FOR MD SETH HATFIELD/sheldon /[id number] d: 12/24/16 1836 t: 02/21/17 0913, CONSULTATION REPORT
--- NOTE | ~2016-12-22 | ER ---
PATIENT'S NAME: TEZ THOMPSON [facility] AGE: 56 Y [address] ROOM: [address] [address] LOCATION: GPCU ADMIT DATE: 12/22/2016 ER/Outpatient Report DISCHARGE DATE: FAMILY PHYSICIAN: Jose Miguel Clemente MD ATTENDING PHYSICIAN: Jose Miguel Clemente Time of Arrival: 1319 hours. Time of Evaluation: 1325 hours. CHIEF COMPLAINT: Fluid retention. HISTORY OF PRESENT ILLNESS: The patient is a 56-year-old male, who presents to the emergency department with fluid retention. He reports he has swelling all over his body. It has progressively worsened over the past few weeks. It is in his legs, in his scrotum as well as his belly. He does report he had a paracentesis performed about 3 weeks prior to arrival. The patient just returned from [place] after being released from skilled facility 2 days prior. He had been in [place] after a fractured hip that required transfer of the patient, has a congestive heart failure with EF of 10%-15%. He had required pressors, and his hip was fixed, and then was transferred to the intermediate facility for some time. His mom and sister just went and got him a couple of days ago and brought him home. Apparently, his home health nurse went to his house today, and noted that the patient has significant amount of swelling in his legs, scrotum, and abdomen, and reported that he is unable to take care of himself in his facility at this time. PAST MEDICAL HISTORY: Hypertension; diabetes type 2, on insulin; ischemic cardiomyopathy, status post drug-eluting stents to the LAD; biventricular AICD implantation with removal secondary to infection; COPD; combined systolic and diastolic congestive heart failure with EF of 15%-20%; bipolar; depression; and schizophrenia. PAST SURGICAL HISTORY: Dual-chamber pacemaker implantation in 2008 and 2010 with ICD placement, status post removal due to infection in September 2015; stent placements. FAMILY HISTORY: Myocardial infarction in father at 83, mother is healthy without any medical conditions. SOCIAL HISTORY: The patient denies any tobacco, alcohol, or illicit drug use. Lives alone. PATIENT'S NAME: [facility] AGE: 56 Y [address] ROOM: [address] [address] [facility] ADMIT DATE: 12/22/2016 ER/Outpatient Report DISCHARGE DATE: FAMILY PHYSICIAN: Jose Miguel Clemente MD ATTENDING PHYSICIAN: Jose Miguel Clemente ALLERGIES: NO KNOWN DRUG ALLERGIES. MEDICATIONS: Please see list. PRIMARY CARE DOCTOR: Dr. Clemente. REVIEW OF SYSTEMS: All systems are reviewed by myself and are negative with the exception of those discussed in the HPI and past medical history. PHYSICAL EXAMINATION: VITAL SIGNS: Weight 98.8 kg, blood pressure 198/93, pulse 99, respiratory rate 16, temperature 97.4, oxygen saturation 92% on room air. GENERAL: The patient is a 56-year-old male, appears older than stated age. HEENT: Head: Normocephalic, atraumatic. Pupils are equal, round, and reactive to light. NECK: Supple. CARDIOVASCULAR: Regular rate and rhythm. LUNGS: Diminished on the right base. ABDOMEN: Positive fluid wave. Distended. No tenderness to palpation. Positive bowel sounds. MUSCULOSKELETAL: The patient moves all 4 extremities. SKIN: The patient does have 3+ pretibial edema in bilateral lower extremities extending up into the upper legs and lower abdomen. SKIN: Warm and dry. The patient does have some mild erythema noted to the left lower extremity. There is no tenderness to palpation to that extremity. LABORATORY DATA AND X-RAYS: EKG is obtained, is interpreted by myself at 1413 hours shows sinus rhythm with a rate of 96, left axis deviation, [place] interval of 199, QTc of 464. No ST elevation or ST depression. There is nonspecific T-wave inversions. There are Q-waves in V1, V2, V3, II, III, and AVF. There is no significant change from 09/06/2016. CBC is unremarkable. Coags are normal. ProBNP is 4847. CMP is unremarkable except for sodium 128, chloride 93, glucose 158, alkaline phosphatase 854. LFTs normal. Magnesium is normal. CK is normal. CK-MB is 6.7. Troponin is normal. Two-hour repeat enzymes are obtained. CK is 106. CK-MB is 6.3, troponin is normal. IMPRESSION: PATIENT'S NAME: TEZ THOMPSON [facility] AGE: 56 Y [address] ROOM: [address] [address] [facility] ADMIT DATE: 12/22/2016 ER/Outpatient Report DISCHARGE DATE: FAMILY PHYSICIAN: Jose Miguel Clemente MD ATTENDING PHYSICIAN: Jose Miguel Clemente 1. Anasarca. 2. Acute exacerbation of chronic diastolic and systolic congestive heart failure, with known EF of 10-15%. 3. Hyponatremia. 4. Initial visit. EMERGENCY DEPARTMENT COURSE: The patient was brought back to the examination room. Seen and evaluated by myself. An IV is established. Laboratory analysis and imaging are obtained as described above. I have discussed results with the patient, and his mother and sister who are at the bedside. With the amount of fluid retention the patient has, he will require admission to the hospital for further evaluation and treatment. A bedside ultrasound was performed by myself, and it does reveal ascites as well. He certainly may need paracentesis. I have discussed the case with Dr. Luu, who is on-call for the patient's primary care doctor, Dr. Clemente. He does agree to accept the patient for further evaluation, treatment, and management in the hospital. DISPOSITION: The patient is admitted under the care of Dr. Luu in stable condition. DO SHEILA FERNANDEZ/modl /[id number] d: 12/22/162149 t: 12/25/16 0654, OUTPATIENT REPORT
--- NOTE | ~2016-12-22 | ECHO ---
Transthoracic Echocardiography Report (TTE) Demographics Patient Name TEZ THOMPSON Date of Study 12/23/2016 Patient Number [id number] Visit Number [id number] Date of 1960 Room Number G6322 Gender Male Number Age 56 year(s) Referring Dana Boss Supervising Producer Milagros Ruelas, Physician RT,RVT,RDCS Physician Interpreting Alexei Paul MD Fresh Work Wrapper Layer Physician Supervising Ordering Dana Boss MD/LI Physician Nurse Stress Log Sawyer Conclusions Summary The estimated left ventricular ejection fraction is 15%. The left atrium is mildly, moderately dilated. Severe hypokinesis of left ventricle. The right atrium is mildly dilated. Dilated IVC with poor inspiratory collapse consistent with elevated RA pressure. Mildly dilated right ventricle. Moderate mitral regurgitation by color Doppler. There is severe pulmonary hypertension. The pulmonary pressure (RVSP) is 60 mmHg. Procedure Type of Study TTE procedure:2D Echocardiogram, M-Mode, Doppler , Color Doppler. Procedure Date Date: 12/23/2016 Start: 08:41 AM Study Location: Inpatient Portable Technical Quality: Adequate visualization Indications:Congestive heart failure. Additional Indications:anasarca Appropriate Use Criteria: 9 Patient Status: Routine HR: 85 bpm BP: 121/77 mmHg M-Mode/2D Measurements LV Diastolic Dimension: 7.32 cm LV Systolic Dimension: 6.73 cm LV Septum Diastolic: 0.63 cm LV Septum Systolic: 0.63 cm LV PW Diastolic: 0.78 cm LV PW Systolic: 1.02 cm Cardiac Output: 4.65 l/min AO Root Dimension: 2.8 cm LA Dimension: 4 cm EF Estimated: 15 % LA volume: 64 ml RV Base: 4.5 cm LVOT: 2.1 cm RV Mid: 3.7 cm LVOT VTI: 15.8 cm RV Length: 7.3 cm LV Stroke volume: 54.7 ml TDI-S': 8.6 cm/s Doppler Measurements AV Peak Velocity: 0.92 m/s MV Peak E-Wave: 1.03 m/s AV Peak Gradient: 3.38 mmHg AV Mean Gradient: 2 mmHg LVOT Peak Velocity: 0.84 m/s PV Peak Velocity: 0.9 m/s TR Velocity:3.53 m/s PV Peak Gradient: 3.23 mmHg TR Gradient:49.84 mmHg Estimated PASP: 59.84 mmHg Estimated RAP:10 mmHg Estimated RVSP: 60 mmHg E' Septal Velocity: 0.05 m/s MV E/E' Ratio: 21.4 Findings Left Ventricle Severe hypokinesis of left ventricle. Right Ventricle Mildly dilated right ventricle. Left Atrium The left atrium is mildly, moderately dilated. Right Atrium The right atrium is mildly dilated. Dilated IVC with poor inspiratory collapse consistent with elevated RA pressure. Mitral Valve Moderate mitral regurgitation by color Doppler. Aortic Valve Normal aortic valve structure and function. Tricuspid Valve There is severe pulmonary hypertension. The pulmonary pressure (RVSP) is 60 mmHg. Moderate tricuspid regurgitation by color Doppler. Pulmonic Valve Normal pulmonic valve structure and function. Pericardial Effusion No evidence of pericardial effusion. Miscellaneous Visualized portions of the aortic root and ascending aorta appear normal in size. Pleural Effusion No evidence of pleural effusion. Contractility Score LV regional wall motion:(0-Non visualized 1-Normal 2-Hypokinesis 3-Akinesis 4-Dyskinesis 5-Aneurysm) Signature dtt: Humberto Linda (cardio) dtd: 12/23/16 0841 Physician Self Edit
--- NOTE | ~2016-12-22 | DS ---
PATIENT'S NAME: TEZ THOMPSON [facility] AGE: 56 Y [address] ROOM: G3217 [place], [place] [address] LOCATION: [facility] ADMIT DATE: 12/23/2016 Discharge Summary DISCHARGE DATE: 02/14/2017 FAMILY PHYSICIAN: Jose Miguel Clemente MD ATTENDING PHYSICIAN: Jose Miguel Clemente [facility] COURSE: This patient is a 56-year-old white male with a very significant past medical history including congestive heart failure with EF of 15% in September 2016, bipolar disorder, schizophrenia, cardiomyopathy, coronary artery disease, depression, hypertension, hyperlipidemia, noncompliance, type 2 diabetes well controlled, recent hip fracture requiring transfer to [facility] where this was repaired as well as he required to stay in transitional care/rehab. He was brought home by family members and promptly brought to the emergency room when he was having increasing shortness of breath. He was found to have exacerbation of heart failure. He had significant swelling in his face and abdomen and was felt to be anasarca. He was also found to be hyponatremic. He was brought to the floor and placed on telemetry. He had also been seen by the Cardiology Service and started on Lasix infusion and an echo was ordered. Accurate I's and O's were monitored. He was found to have a pleural effusion on the right and the Pulmonary Service was consulted. This was ultimately felt to be related to CHF and nothing needed to be tapped. Diuresis was continued by the Cardiology Service. This was done with a combination of IV Lasix and fluid restriction. Potassium was carefully managed. Care Management involved. Family was consulted with Care Management and they stated that he was not safe to go home and his home was a disarray. They feel like he will need to be placed in some sort of assisted living versus half-way facility. We continued to diurese with the help of employment evaluator/case manager. We monitored his blood sugars. We discussed compliance with fluid restriction as well as all other meds. He continued to slowly improve. He was not very compliant wearing oxygen. He was known to be desaturating at night while sleeping as well as with any activity. He continued to want to smoke. He complained of oxygen drying his nose and so we humidified him and added nasal saline spray. We adjusted his insulin. We encouraged ambulation. We worked toward placement. There were peer issues. Family members did get his documentation in. It was very slow from standpoint. Constipation was managed with Colace and MiraLax. He had continued significant swelling in his scrotum and penis, and we offered athletic supporter for comfort. Subsequently then approximately 10 days into his hospitalization, a lot of his edema in the scrotum and other areas began to really dissipate. He required significant encouragement for ambulation. Physical Therapy and Occupational Therapy had been involved from the start. We continued to work on placement. Over the next few weeks, he remained relatively stable, but diuresis was needed to help continue to optimize his cardiac function. We continued to monitor electrolytes. Subsequently, he was able to obtain peer commitment and was able to be transferred to half-way PATIENT'S NAME: TEZ THOMPSON [facility] AGE: 56 Y [address] ROOM: [place] [address] LOCATION: [facility] ADMIT DATE: 12/23/2016 Discharge Summary DISCHARGE DATE: 02/14/2017 FAMILY PHYSICIAN: Jose Miguel Clemente MD ATTENDING PHYSICIAN: Jose Miguel Clemente in [place]. Initial plan is for him to continue to have primary care from us and Cardiology care from Dr. Linda knowing that that may not be possible depending on his status. The patient is subsequently discharged and transferred with the following diagnoses: Idiopathic cardiomyopathy, CHF with EF of 10% to 15%; type 2 diabetes; hypertension; schizophrenia; diet compliance; dementia; recent hip fracture; noncompliance with oxygen; and depression. He is discharged on oxygen and an 18 mL per 24 hours fluid restriction. MEDICATIONS AT THE TIME OF DISCHARGE: Include the followin. Amiodarone 200 mg, 400 mg total daily. 2. Aspirin 81 mg per day. 3. Atorvastatin 40 mg per day. 4. Carvedilol 3.125 mg twice a day. 5. Vitamin D3 1000 units 2 tablets daily. 6. Colace 100 mg twice a day. 7. Lasix 40 mg every day. 8. Insulin sliding scale before meals and at bedtime. 9. Levemir 12 units at bedtime. 10. Lisinopril 2.5 mg daily. 11. Magnesium oxide 400 mg twice per day. 12. Zaroxolyn 2.5 mg, Friday and Friday, 30 minutes before Lasix. 13. Nicotine patch 14 mg, on in the morning and half at night. 14. Olanzapine 10 mg tablets 2 at bedtime. 15. Paxil 60 mg daily. 16. Potassium 10 mEq two b.i.d. 17. Aldactone 25 mg every morning. 18. Flomax 0.4 mg at bedtime. 19. Tylenol 650 mg every 4 hours as needed for pain. 20. Lorazepam 0.5 mg every 4 hours as needed for anxiety. 21. Roxicodone 5 mg every 4 hours as needed for pain. 22. Nasal saline spray. PLAN: To follow up with me in 2 to [address] Linda in 2 weeks' time. MD LAUREEN PERERA/cesial /[id number] d: 02/28/17 0839 t: 03/04/17 0651, DISCHARGE SUMMARY
[~2016-12-22 13:19] MED LIST changes: +ATARAX25 MG PO
[2016-12-22 14:33] LABS: BASOPHIL % 0.4 %; EOSINOPHIL % 0.4 %; HEMOGLOBIN 12.4 g/dL (12.0-17.0); IMMATURE GRANULOCYTE # 0.1 K/uL (0.0-0.3); IMMATURE GRANULOCYTE % 0.5 %; LYMPHOCYTE % 10.7 %; MONOCYTE # 0.8 K/uL (0.0-1.0); MONOCYTE % 8.2 %; MPV 9.2 fl (9.4-12.4); NEUTROPHIL # (ANC) 7.7 K/uL (1.4-9.0); NEUTROPHIL % 79.8 %; NRBC % 0 /100WBC (0-0.00); PLATELET COUNT 172 K/uL (150-450); RDW-CV 16.5 % (11.9-14.6); WBC 9.7 K/uL (4.0-11.0)
[2016-12-22 14:38] LABS: HEMATOCRIT 38.6 % (37.0-53.0); MCH 26.3 pg (27.0-34.0); MCHC 32.1 gm/dL (32.0-36.5); MCV 81.8 fl (83.0-98.0); RBC 4.72 M/uL (4.00-6.00)
[2016-12-22 14:50] LABS: INR - (THERAPEUTIC) 1.04 (0.92-1.07); PROTIME 10.9 SECONDS (9.8-11.4); PTT 29 SECONDS (25-32)
[2016-12-22 14:54] LABS: ALBUMIN 3.1 gm/dL (3.5-5.0); ALT 19 IU/L (12-78); AST 39 IU/L (10-40); BLOOD UREA NITROGEN 9 mg/dL (6-24); CALCIUM 8.3 mg/dL (8.5-10.5); CHLORIDE 93 mMol/L (96-110); CO2 24 mMol/L (22-32); CPK 118 IU/L (35-332); CREATININE 1.1 mg/dL (0.6-1.3); MAGNESIUM 1.9 mg/dL (1.8-2.6); SODIUM 128 mMol/L (135-145); TOTAL PROTEIN 6.9 g/dL (6.0-8.4)
[2016-12-22 14:56] LABS: ALK PHOS 854 IU/L (33-138); ESTIMATED GFR (MDRD EQUATION) > 60; TOTAL BILIRUBIN 1.1 mg/dL (0.0-1.5)
[2016-12-22 16:46] LABS: CPK 106 IU/L (35-332)
[2016-12-22] MEDS ORDERED: LIPITOR40 MG PO (19:18)
[2016-12-22] MEDS ORDERED: CORDARONE,PACE200 MG PO (19:19)
[2016-12-22] MEDS ORDERED: FLOMAX0.4 MG PO (19:20)
[2016-12-22] MEDS ORDERED: VITAMIN D-32000 UNI1 PO (19:20)
[2016-12-22] MEDS ORDERED: NICODERM / HABIT7 MG TRANS (19:21)
[2016-12-22] MEDS ORDERED: ALDACTONE25 MG PO ×2 (19:22→19:23)
[2016-12-22] MEDS ORDERED: DEMADEX20 MG PO (19:22)
[2016-12-22] MEDS ORDERED: TYLENOL325 MG PO (19:23)
[2016-12-22] MEDS ORDERED: ATIVAN 0.5MG0.5 MG PO (19:25)
[2016-12-22] MEDS ORDERED: ROXICODONE 5MG (5 MG PO (19:25)
--- NOTE | 2016-12-23 00:48 | NUR ---
PT ADMITTED TO FLOOR FROM ER. PT LIVES AT HOME ALONE HOWEVER JUST CAME HOME FROM [facility] ON FRIDAY. PT STATES HE STARTED TO HAVE SOB AND COULD TELL HE WAS FILLING UP WITH FLUID SO CAME TO THE ER. PT NOTED TO HAVE 2-3+ EDEMA TO SACARAL AREA AND 4+ PITTING EDEMA TO BILATERAL LEGS. LEGS ARE TIGHT AND WARM TO TOUCH. RIGHT LOWER LEG IS VERY RED AND HOT TO TOUCH. DOPPLER NEEDED FOR PULSES. PT VSS UPON ARRIVAL. PT STATES THAT HIS SISTER LIVES IN ANOTHER STATES DROVE TO GET HIS MOM IN [place] AND THEY CAME TO HELP HIM GET SETTLED FROM [place]. OTHER THEN THEM HE HAS NO ONE TO HELP WITH CARES. PT VERY UNKEPT AND UNCLEAN UPON ARRIVAL. INCONTIENT OF URINE AND STOOL. BRUSING NOTED TO BILATERAL ARMS. SMALL SCAB TO RIGHT ELBOW, SMALL CUT TO LEFT WRIST AREA, SMALL SCRATCH TO MID LOWER BACK. BILATERAL ELBOWS DRY. FEET NOTED TO BE COOL TO TOUCH. RIGHT SMALL TOE PURPLE TO SOME SLIGHT DISCOLORATION NOTED TO OTHER TOES ON BILATERAL FEET. PT SCROTUM EXTREMLY SWOLLEN, ELEVATED ON TOWEL, ALSO NOTED TO BE VERY EXCORIATED, AREA CLEANED AND BARRIER APPLIED. PT LUNG SOUNDS CLEAR/DIMINSHED, STARTED ON 2L UPON ARRIVAL DUE TO SOB AND O2 SATS IN MID 80'S, BOWEL SOUNDS ACTIVE X4 QUADRANTS. SOME REDNESS NOTED TO BILATERAL CHEEKS AND NOSE. IV TO RIGHT HAND AND RIGHT FOREARM. PT ALERT AND ORIENTED HOWEVER SLIGHTLY SLOW AT TIMES. USES CALL LIGHT APPROP WITH NO COMPLICATIONS NOTED.
--- NOTE | 2016-12-23 03:55 | NUR ---
Significant Event:Pt has continues to rest well during shift. machuca cath placed at 2330 due to retention and edema to the scrotum and penis area. cath placed with no complications noted. 1150 out of cath initially, since then another 2100 out of machuca cath. iv to right forearm running iv lasix at 5ml per hour. blood presures remain above 110sbp. afebrile, lung sound clear/diminished. pt slow to answer at times. continues to have 3+pitting edema to bilateral legs. elevated as able. 2L per nasal cannula applied, sats remain above 90% at this time. pt uses call light approp. Follow up:
[2016-12-23 06:04] LABS: BASOPHIL # 0.1 K/uL (0.0-0.2); BASOPHIL % 0.8 %; EOSINOPHIL # 0.1 K/uL (0.0-0.5); EOSINOPHIL % 1.1 %; HEMATOCRIT 38.4 % (37.0-53.0); HEMOGLOBIN 12.2 g/dL (12.0-17.0); IMMATURE GRANULOCYTE # 0.1 K/uL (0.0-0.3); IMMATURE GRANULOCYTE % 0.7 %; LYMPHOCYTE # 1.1 K/uL (0.8-4.0); LYMPHOCYTE % 11.4 %; MCH 25.8 pg (27.0-34.0); MCHC 31.8 gm/dL (32.0-36.5); MCV 81.4 fl (83.0-98.0); MONOCYTE % 10.9 %; MPV 9.1 fl (9.4-12.4); NEUTROPHIL # (ANC) 7.1 K/uL (1.4-9.0); NEUTROPHIL % 75.1 %; NRBC % 0 /100WBC (0-0.00); PLATELET COUNT 183 K/uL (150-450); RBC 4.72 M/uL (4.00-6.00); RDW-CV 16.6 % (11.9-14.6); WBC 9.5 K/uL (4.0-11.0)
[2016-12-23 06:24] LABS: ALBUMIN 3.1 gm/dL (3.5-5.0); ALT 18 IU/L (12-78); AST 33 IU/L (10-40); BLOOD UREA NITROGEN 10 mg/dL (6-24); CALCIUM 8.5 mg/dL (8.5-10.5); CHLORIDE 97 mMol/L (96-110); CO2 26 mMol/L (22-32); CREATININE 1.1 mg/dL (0.6-1.3); ESTIMATED GFR (MDRD EQUATION) > 60; POTASSIUM 3.2 mMol/L (3.7-5.1)
[2016-12-23 06:27] LABS: TOTAL BILIRUBIN 1.2 mg/dL (0.0-1.5); TOTAL PROTEIN 6.8 g/dL (6.0-8.4)
[2016-12-23 06:28] LABS: ALK PHOS 812 IU/L (33-138); ANION GAP 15.2 (10.0-19.0); SODIUM 135 mMol/L (135-145)
--- NOTE | 2016-12-23 10:43 | NUR ---
Reviewed pt chart and got a phone call from [facility] nurse. Pt in September was admitted here after a fall fracturing his hip, had other health complications and transferred to [facility] for higher level of care. From [facility] went to [facility] in [place] where he has been every since September. Per nurse insisted on discharge home out of SNF and then when they arrived to admit to he said he didn't have anyone to take care of him and needed rehab. Pt full of fluid so she sent him to ER. nurse reports his mom and sister live in [place] and they dropped him off at home, got him settled, and then left to go to home to [place]. She is recommending placement as he cannot dress himself, bathe himself, ambulate well and not safe in his trailer, recommends if he gets strong enough to go home then trailer will need work if we can start a referral to [facility] to help him with that. She is faxing me the referral information she got from the [facility] in [place]. Due to pt multiple comorbidities and his mental illness may be a challenge to find NH placement locally, may have to call previous SNF and see if they will accept him back. Will talk with patient and sister who is POA and start that process. nurse reports he is Medicaid pending. I did call Janine with [facility] and left voicemail asking her to look into that to confirm or see where they are at with approving Medicaid. Will call the SNF he was at as well to see what I can find out.
--- NOTE | 2016-12-23 13:09 | NUR ---
Talked with patient, lives in [place], says he knows he can't take care of himself right now, wants therapies and rehab. Asked where he would want to go on discharge, he [facility], asked if he meant [facility] or [facility] ([facility] SNF's) He says yes. Told him we will start referrals and let him know. Talked with Janine with [facility], she looked online and does not see that he is Medicaid pending at this time. Says back in March last year had Medicaid with share of cost, but not active now. I told her I would call the SNF he was at and get contact info of who helped him apply.
--- NOTE | 2016-12-23 13:17 | NUR ---
Called [facility] [phone] and left voicemail for Lisa in social work requesting call back, asked her how many skilled days pt has used, how he was performing with P.T. when he left their facility, who has helped him apply for Medicaid, and if they have a copy of the DPOA, pt says his mom is his DPOA. Waiting call back before I start referrals to other facilities.
--- NOTE | 2016-12-23 15:10 | NUR ---
Diabetes center note: 1100 This patient has received Diabetes Education from CDE in the past, at this time, patient is observation status, but CDE does stop by to see if there are any educational needs that patient may have. Patient states that he has lost his blood glucose meter and is in need of a new meter, One Touch Verio is given to patient and will need a written script for strips upon discharge from hospital. Discussed A1C of 7.5 % on 12/22/16. Patient reports that he has been in healthcare facilities recently due to fractured hip and rehab. follow up. Will have patient complete the Diabetes Survival Skills Assessment form and check in with patient on 12/23/16 to assess further educational needs.
--- NOTE | 2016-12-23 19:01 | NUR ---
PATIENT HAS BEEN GOOD THROUGHOUT THE DAY. HAS COMPLAINED OF NO PAIN. DIURESSED WELL SHIPLEY CATH REMAINS INPLACE.
--- NOTE | 2016-12-24 04:30 | NUR ---
Significant Event: VSS, PT AFEBRILE. CONTINUES ON 1L 02 WITH SATS FROM 93-97%. PT HAD 1450 CLEAR YELLOW URINE OUT PER SHIPLEY. 2+EDEMA IN HIS LOWER LEGS. LUNGS ARE CLEAR AND DIMINISHED. PT WAS UP ALL NIGHT. ALERT AND ORIENTED BUT FORGETFULL AND NEEDS REMINDED OF THINGS OFTEN. 1800 ML FR. Follow up:
[2016-12-24 05:31] LABS: ANION GAP 12.2 (10.0-19.0); BLOOD UREA NITROGEN 14 mg/dL (6-24); CALCIUM 8.4 mg/dL (8.5-10.5); CHLORIDE 99 mMol/L (96-110); CO2 28 mMol/L (22-32); CREATININE 1.1 mg/dL (0.6-1.3); ESTIMATED GFR (MDRD EQUATION) > 60; POTASSIUM 3.2 mMol/L (3.7-5.1); SODIUM 136 mMol/L (135-145)
--- NOTE | 2016-12-24 09:42 | NUR ---
Called [facility] in [place] and left another message for rn social work or citrix administrator to call me back re: Mr. Jimenez.
--- NOTE | 2016-12-24 12:35 | NUR ---
Received call from [facility] social insurance adviser Lisa, she reports that they anticipated pt would not have a good outcome going home, but he was adamant about going home and his mom was willing to come get him to take him home. Says they tried to talk him out of going home because they didn't feel he was ready, was able to walk longer distance, but balance was never good so they didn't feel he would be successful at home. They did not ever have a power of international logistics analyst paper showing his mom as DPOA for healthcare. Has used all 100 Medicare skilled days so no payor source for SNF at this time. They did have their person help him apply for Medicaid, her name is Nova and she called me. Her phone number is [phone] ext [phone] and she reports he is Medicaid Pending but currently denied for failure to provide documentation needed to approve Medicaid, she asked his mom to help gather information and mom lives in [place] and wasn't able/willing to help. Needs bank statements, rental agreements and utilities. Applied November 02. Has a roll over press operator assigned Danae Merritt (not sure if spelled last name correctly) with [facility] and her number is [phone]. I will pass this info along to Janine with [facility] and talk with patient to see who can help him gather this information to continue to process his application. Reviewed his therapy notes, pt transfers and ambulates 240 feet CGA with front wheeled walker and gait belt, does have balance deficits. If he progresses to meet his P.T. goals while in the hospital then will not qualify for a skilled stay and could go home, is close to meeting goals. Will talk with him about this and potentially going home with Home Health.
--- NOTE | 2016-12-24 14:22 | NUR ---
Diabetes Center note; Patient completed the Diabetes Survival Skills checklist and CDE addressed questions. At this time care management is looking into possible placement into a penitentiary facility. Patient is forgetful. If patient is dismissed to home, he will need a script written for One Touch Verio test strips for 3-4 times per day testing, note left on chart.
--- NOTE | 2016-12-24 15:54 | NUR ---
Significant Event: Patient alert. Vital signs stable on 1L via nasal cannula. Up with 1 assist with walker and gaitbelt. Has walked in hallway and room a few times during the day. Turned or stood every 2 hours. IVs intact with no complications. Peterson catheter draining yellow urine with no complications. Fluid restriction. Has rested off and on throughout shift. Accuchecks achs. Pleasant and cooperative with cares. Follow up:
--- NOTE | 2016-12-24 16:19 | NUR ---
Talked with patient. Let him know that he has no more Medicare coverage of any skilled stay, and that he has not been approved for Medicaid, [facility] helped him apply, but has been denied because he has not provided bank statements, utility bills and rent statements to them. He says he owns his trailer and pays lot rent. Told him he has no payor source to go anywhere on discharge until he gets that information to Medicaid so they can continue to process his Medicaid application. Told him he can't just stay here for weeks until he is approved. At this point, told him options are to go home with home health, go back to [facility], or go home with his Mom in [place] if she is the only family he has. He says he can't take care of himself at home. Explained to him he should not have left [facility]. He tells me he thought he could and wanted to come back to [place]. Says he doesn't want to go back to [facility], said he would go home with his mom. Told him thats fine if his mom is willing to take him home with her. Told him that [facility] or other skilled facility he says he wants to go to is going to accept him with no payor source, and that he is doing better with physical therapy, so may not qualify for correction, may just need assisted living, but again has no payor source for that. Told him if he can't go home and can't go home with his mom may need to look at going back to [facility]. Tells me to talk with his mom and getting the information for Medicaid because she is his financial POA. Told him I would talk with his mom. Called his mom Nerissa in [place]. Explained to her who I was and that I am helping with dc planning and resources. Asked her if she is aware pt in the hospital. She said yes, they got back on the weekend and she and her daughter brought him to ER because he couldn't take care of himself at home and home health nurse told them to do that. Asked her when they are coming back to [place]. She said sometime, but they had to get back to [place] because she had a doctors appointment. Explained to her that he has no Medicare skilled days left to pay for him to go anywhere on discharge, and that they should not have taken him out of [facility] before Medicaid was approved. She said he was full of fluid and needed to come to the hospital. Discussed that [facility] started a Medicaid application, but has been denied because they can't get the financial information they need, bank statements, utility bills, and rent payments. Asked her if she is financial poa, and she says she is. Told her we will need copies of healthcare dpoa but that she should be able to get his financial information from the bank to help him. She asks if we can help him, told her we can't get him to the bank and home to get his bills, that someone needs to help him with that so he can get on Medicaid. She says maybe they can come back to [place] to do that. Asked who is helping him pay his bills, she says she is, that [employer] sends her the electric bill and she pays the man his lot rent. Told her to bring that information and get last 2-3 months of bank statements and bring them in and we can have Janine with [facility] get them to [facility]. She says she will talk with her daughter about bringing her back. Explained to her without a payor source, that his options are either to go back to [facility] if they will accept him since they didn't want him to leave, or home with home health, or home with her. She says he can't go home because he will because he can't take care of himself. Says she is in her 80s and he can't come home with her and doesn't want him to go back to [facility]. Again explained to her that he does not have a payor source to go anywhere and until he has a payor source, those are his options. She will talk with her daughter about coming back to [place] to help him gather the financial information and I will touch base with her in a day or so to see her plan. Called Janine with [facility] and let her know the above information, she will do followup as well. Called Dr Clemente and let him know the above as well. Will see where things are at when patient closer to being ready for discharge.
--- NOTE | 2016-12-25 04:52 | NUR ---
Significant Event:pt alert and oriented, can be forgetful and slow at times. follows commands and is pleasant with staff and cares. up to chair with 1 assist stand by. uses call light approp. vss during shift. on room air at this time. sats remain above 90%. iv to right hand sl as well as iv to right forearm sl. pt complained of pain at 0145, states his scrotum was huring. scrotum elevated on towel. machuca cath patent clear yellow urine out. 1000ml out. pt continues have edema to lower bilater extremities however is improving. did need 4 units coverage at hs. Follow up:
[2016-12-25 07:13] LABS: BLOOD UREA NITROGEN 19 mg/dL (6-24); CALCIUM 8.4 mg/dL (8.5-10.5); CHLORIDE 100 mMol/L (96-110); CO2 28 mMol/L (22-32); CREATININE 1.2 mg/dL (0.6-1.3); ESTIMATED GFR (MDRD EQUATION) > 60; MAGNESIUM 2.2 mg/dL (1.8-2.6); PHOSPHORUS 3.2 mg/dL (2.5-4.9); SODIUM 136 mMol/L (135-145)
--- NOTE | 2016-12-25 15:03 | NUR ---
Pt is a level II [place] ([place]), DEVAN sheikh is sending someone to evaluate pt this afternoon to clear him for going to SNF level of care. I talked with her this afternoon before she interviewed nurse and patient about his care needs. I got a call this morning from patient mom, she and daughter are coming to [place] today, hoping to get to bank and post office and pickle sorter bank statements and mail and bring them here along with her receipts and invoices for financial information that Medicaid reviewer will need to process Medicaid application. Gave her Janine with [employer] phone number and I called Janine and left message for her to call mom to set up time to meet today or tomorrow to get all the information needed to forward to Medicaid so they can complete application/approval. Mom said she has appt in [place] on Friday so I don't think they are staying long. I am going to try to meet with them later to discuss dc planning. I started referrals to [facility], [facility] and [facility]. [facility] has no male beds and especially no terminal worker male beds right now. [facility] has only short term male beds and wouldn't accept. [facility] came to assess, [facility] will let me know if they can accept (have refused x 4 in the past, per Milagro) and Ira for [facility] said she will give information to Evelyn and have her come assess and I will talk with Evelyn on Friday. Neither [facility] nor [facility] will accept until Medicaid approved and active, won't take Medicaid pending. Talked with patient earlier, let him know [facility] coming to assess and introduced Milagro to him when she saw him. Also let him know [facility] Jordan substation technician coming to see him, and let him know his mom and sister coming today, but only staying a short time. He is happy to see his mom and sister. Talked with patient and let him know I am starting referrals to the SNF in town, but no guarantee they will accept or we will be able to place him here in town. Also let him know this may be more of a jail placement and new living situation for him and he may not be able to get back to his trailer, as he has just had 3 months of rehabiliation at [facility], and if he doesn't feel he can take care of himself at home now, then this is likely his new normal, won't continue to improve and will need care the rest of his life. He says "Oh you think so"? Told him yes, I think so. Told him what that means, if Medicaid is going to pay for him to be at skilled nursing, they will take his social security income as part of that payment and he will likely have to sell his trailer at some point, but SNF will help him with those things. He again seems surprised by this information. He says he can't take care of himself. Told him I started referrals to the SNF in town, but can't guarantee they will accept and then will have to look further out of town, and if can't find somewhere close, may be making referral back to [facility]. He accepted information, but didn't really respond to it. Will continue to follow, hoping to talk with mom and sister about this as well.
--- NOTE | 2016-12-25 19:26 | NUR ---
Significant Event: VSS ON RA WHILE AWAKE. 1L/NC WHILE SLEEPING. LUNGS IMPROVING, CLEAR/DIM THROUGHOUT. CONTINUED IV LASIX BID. SHIPLEY TO DD WITH 1500ML UOP. NO BM TODAY. ABD DISTENDED AND SLIGHTLY FIRM. NO C/O ABD PAIN OR N/V. WORKS WITH PT/OT. 1PA WITH WALKER AND GAIT BELT. CARE MANAGEMENT WORKING WITH PATIENT AND FAMILY ON PLACEMENT. STATE EVAL TODAY. ACHS ACCUCHECKS. FLUID RESTRICTION 1800ML/DAY. PIV TO R) HAND AND R) FA SL'D. Follow up: LABS IN AM CONT TO MONITOR PER PLAN OF CARE. SHIPLEY TO BE DC'D SOON? AFTER IV LASIX CHANGED TO PO?
[2016-12-26 04:06] LABS: ALBUMIN 2.8 gm/dL (3.5-5.0); CALCIUM 8.4 mg/dL (8.5-10.5); CREATININE 1.3 mg/dL (0.6-1.3); MAGNESIUM 2.2 mg/dL (1.8-2.6); PHOSPHORUS 3.5 mg/dL (2.5-4.9)
--- NOTE | 2016-12-26 04:56 | NUR ---
Significant Event:A/O but very forgetful. VSS. Placed on 1L/NC while sleeping to keep sats >90%. Edema to scrotum and BLE pitting. Tylenol at HS for discomfort in scrotum with minimal relief, elevated on towels to help. BG at HS 233 with 2 units coverage. Patient very forgetful of fluid restriction, only gave 1/2 cups of water multiple times to keep under 1800mls. Follow up:CM working on placement.
--- NOTE | 2016-12-26 11:34 | NUR ---
PT SCREENED D/T LOS. EST NEEDS: [id number] KCALS, 109 GM PROTEIN, 1500 ML FLUID RESTRICTION. INTAKE GOOD. NO NUTRITION-RELATED DIAGNOSIS IDENTIFIED. WILL ASSIST NEEDED.
--- NOTE | 2016-12-26 14:30 | NUR ---
12/25/16 Introduced self and purpose of heart healthy education and care transitions. Sleepy, but answers questions appropriately and follows along. Calendar given, information reviewed, verbalized understanding.
--- NOTE | 2016-12-26 17:37 | NUR ---
Significant Event: A/Ox3. Forgetful. VSS on 1L NC. SR with ABV. Lungs clear with sligth crackles in the base. 2+ edema to lower legs and 3+ edema to scrotum, elevated. R) hand and R) A IV saline locked. Working with PT/OT. Kristen had 1250ml of darn yellow urine. Up with 1A/walker.
--- NOTE | 2016-12-27 04:52 | NUR ---
Significant Event: Patient is alert/oriented x3, forgetful at times. Vital signs are stable. On 1-2L O2 at night. Roxicodone and Tylenol given x2 last night for scrotal pain, with relief. Scrotal edema persists; keeping it elevated at all times. BLE edema is +2. 1800 mL fluid restriction. Peterson in place with 500 mL UOP. Follow up: Continue to monitor per plan of care.
[2016-12-27 05:14] LABS: ALBUMIN 2.6 gm/dL (3.5-5.0); BLOOD UREA NITROGEN 25 mg/dL (6-24); CALCIUM 8.1 mg/dL (8.5-10.5); CHLORIDE 99 mMol/L (96-110); CO2 27 mMol/L (22-32); CREATININE 1.2 mg/dL (0.6-1.3); ESTIMATED GFR (MDRD EQUATION) > 60; PHOSPHORUS 3.8 mg/dL (2.5-4.9); SODIUM 135 mMol/L (135-145)
--- NOTE | 2016-12-27 12:25 | NUR ---
Left Janine with [facility] a voicemail requesting she call me back to see if mom and sister were able to get everything to her to continue the Medicaid application. Called [facility] and [facility] is out for the day, will call her next week to see if they would accept pt when Medicaid in place. Called Evelyn at [facility] and discussed pt with her. She came over and evaluated him, and wants to reevaluate him again when he does get Medicaid on board before they decide if they will accept him. Not ruling it out but wants to reevaluate closer to time, sounded positive but noncommittal. Told her that was fine, we would let her know when we hear Medicaid approval. In the meantime I told her I am also going to refer to other facilities so I have others as backup in case they decide they can't. She understands that pt preference is to stay in [place] and hopes they can accommodate, but non committal at this time.
--- NOTE | 2016-12-27 14:47 | NUR ---
Significant Event: A/Ox3. SBP-90-110s. P-70s. Afebrile. Room air while awake and 2L when sleeping. L) hand and L) FA IVs saline locked. Peterson had 500ml of dark yellow urine. 1400 dose of lasix held due to hypotention. Maps remained greater than 60 and patient was asymptomatic. Need hematest x3. 1A/walker. Awaiting placment for early next week.
--- NOTE | 2016-12-28 04:32 | NUR ---
Significant Event: A/O, forgetful, SBP 110-120s, RA-2L, machuca had 625mls out, scrotal edema decreasing, Roxycodone and Tylenol given x1 for scrotal pain, Follow up: continue to diurese, awaiting placement
[2016-12-28 07:04] LABS: ALBUMIN 2.8 gm/dL (3.5-5.0); ANION GAP 12.6 (10.0-19.0); CALCIUM 8.4 mg/dL (8.5-10.5); CREATININE 1.3 mg/dL (0.6-1.3); MAGNESIUM 2.3 mg/dL (1.8-2.6); PHOSPHORUS 3.6 mg/dL (2.5-4.9); POTASSIUM 4.6 mMol/L (3.7-5.1)
--- NOTE | 2016-12-28 16:12 | NUR ---
Significant Event: SLEEPY TODAY BUT AROUSES EASILY. UP WITH 1 ASSIST, GB AND WALKER. UP IN CRISTOBAL WITH PT X1. SHOWERED. PIV TO RIGHT HAND AND RIGHT FA, SL'D. LASIX CHANGED TO PO. ORTHOSTATIC BP'S TO PROGRESS NOTES. REQUIRING O2 WHEN SLEEPING, PT NOT ALWAYS COMPLIANT WITH THIS, RE-INFORCED BY DR. ANDRADE. ANTONIO SHIPLEY. DAILY WEIGHT Follow up: CHEST X-RAY IN AM. LABS IN AM.
[2016-12-29 03:58] LABS: ANION GAP 12.8 (10.0-19.0); BLOOD UREA NITROGEN 32 mg/dL (6-24); CALCIUM 8.2 mg/dL (8.5-10.5); CHLORIDE 97 mMol/L (96-110); CO2 29 mMol/L (22-32); CREATININE 1.2 mg/dL (0.6-1.3); ESTIMATED GFR (MDRD EQUATION) > 60; POTASSIUM 4.8 mMol/L (3.7-5.1); SODIUM 134 mMol/L (135-145)
--- NOTE | 2016-12-29 04:49 | NUR ---
Significant Event:A/O. Afebrile. Oxygen increased to 1L/NC while sleeping sats >90% on RA when awake. SBP 108-111. Patient had one void and 100ml out post catheter removal. RETIREMENT ACTUARY's bladder scanned him at 0300 and patient only had 377ml. in his bladder. At this time he c/o sharp pains on and off to groins/scrotum and received prn tylenol with relief noted. Transfers SBA with walker. PIV's saline locked. Follow up:CM to continue to work on placement. Continue with POC.
--- NOTE | 2016-12-29 16:15 | NUR ---
Significant Event: SLEEPY TODAY BUT AROUSES. ORIENTED X3. SLOW TO RESPOND AT TIMES. EDEMA TO BLE, MORE ON LEFT SIDE. CONTINUES TO HAVE MODERATE SCROTAL EDEMA. IV TO RIGHT HAND SL'D. UP WITH 1 ASSIST, GB AND WALKER. SHOWERED. TOTAL OF 120 MG PO LASIX GIVEN, 700 ML UOP VIA URINAL. O2 @ 1L NC WHEN PATIENT COOPERATIVE, REFUSES AT TIMES. Follow up: CONTINUE TO MONITOR.
--- NOTE | 2016-12-30 04:51 | NUR ---
Significant Event:Patient rested more this shift. VSS on 1L/NC for most of the night. At times he would pull it off when he was sleeping sats each assessment >90%. Edema improving but LE L>R. C/O pain to scrotum sukhdev given x1 at 2245 with some relief noted. Follow up:Continue with plan of care until able to find placement.
--- NOTE | 2016-12-30 18:42 | NUR ---
Significant Event: ORIENTED X3, SLEEPY T/O DAY. UP WITH 1 ASSIST, GB AND WALKER. AMBULATED IN HALLS. VOIDS PER URINAL. O2 @ 1L NC. DENIES PAIN. VSS. Follow up:
--- NOTE | 2016-12-31 05:13 | NUR ---
Significant Event:A/Ox3. VSS. 1-2L/NC. Ambulated in halls x1 1assist with walker and gaitbelt. Patient SOB with activity. Continues to have scrotal edema 3+ BLE L>R. BM tonight positive for occult blood still need 2 hematest. Patient cooperative with cares and eager to get out of the hospital. Follow up:CM working on placement.
--- NOTE | 2016-12-31 12:17 | NUR ---
Received call from Milagro at [facility], they are coming up to assess pt today. I let patient know that, he asks when Medicaid will be approved and I told him I am not sure, that Janine told me Friday she sent everything in to them but could be a few weeks yet. He voices understanding. Will let him know when I know more.
--- NOTE | 2016-12-31 14:13 | NUR ---
Talked with Milagro at [facility], they are declining pt for now, would be willing to reassess when Medicaid is active. Pt having payor source is their main concern, but wants nursing to assess his mental illness needs at time he would be ready to discharge with payor source on board. I talked with Janine with [facility] on Friday and she faxed in rest of paperwork [facility] was requesting to review Medicaid application. Waiting for them to approve Medicaid.
--- NOTE | 2016-12-31 16:10 | NUR ---
Significant Event: A/OX3, FORGETFUL AT TIMES. PT. GETS UP 1 ASSIST TO BATHROOM, HAS BEEN IN BED MOST OF THE SHIFT. CONSTANZA GIVEN AT 0940 & TYLENOL GIVEN AT 1200 FOR COMPLAINTS OF SCROTAL PAIN. SHOWERED TODAY. VSS ON 2L PER NC. EDEMA REMAINS TO BLE L>R, SCROTAL EDEMA REMAINS, ELEVATED ON TOWEL. MT. FRANKLIN CAME TO EVALUATE PT. TODAY. VOIDS FINE. NO BM TODAY. Follow up: CONTINUE WITH POC.
--- NOTE | 2017-01-01 04:41 | NUR ---
Significant Event: PATIENT IS A/O X3 BUT FORGETFUL. VSS. HR 60-70'. SBP 100-110'S. AFEBRILE. 02 SATS IN LOW TO MID 90'S ON 2L 02 PER NC. WEANED TO RA WHEN AWAKE. CONSTANT C/O PAIN TO SCROTUM. CONSTANZA GIVEN X1 WITH NO RELIEF. SCRTOUM/PENIS VERY EDEMATOUS AND SEEMS SLIGHTLY WORSE. LUNGS CLEAR TO CLEAR/DIM. UP WITH 1A. BOWELS ACTIVE. C/O CONSTIPATION/BLOATING. PRUNE, MIRALAX, AND COLACE GIVEN X1. STARTED ON BID COLACE. ENCOURAGED TO KEEP AMBULATING. IV TO RIGHT HAND SL. CONTINUES TO HAVE 1-2+ GENERALIZED EDEMA. ON ACHS ACCUCHECKS. Follow up: WAITING FOR MEDICAID ACCPETANCE AND PRISON PLACEMENT
[2017-01-01 04:45] LABS: ALBUMIN 2.8 gm/dL (3.5-5.0); ANION GAP 12.5 (10.0-19.0); CALCIUM 8.3 mg/dL (8.5-10.5); CREATININE 1.3 mg/dL (0.6-1.3); MAGNESIUM 2.2 mg/dL (1.8-2.6); PHOSPHORUS 4.1 mg/dL (2.5-4.9); POTASSIUM 4.5 mMol/L (3.7-5.1)
--- NOTE | 2017-01-01 16:18 | NUR ---
Significant Event: A/OX3, FORGETFUL. VSS ON RA TO 2L @ TIMES, WHEN PT. FEELS LIKE WEARING O2 OR NOT. SBP 110'S. NO COMPLAINTS OF PAIN THIS SHIFT. ATHLETIC SUPPORT APPLIED TO SCROTUM THIS AFTERNOON, PT. SAYS IT FEELS BETTER. DEPENDENT EDEMA REMAINS TO BELLY ON DOWN TO LEGS. SLIV TO R)HAND. NO BM THIS SHIFT. PT. STANDS @ BEDSIDE TO VOID VIA URINAL. PT. REFUSES TO GET UP TO CHAIR. Follow up: CONTINUE WITH POC.
--- NOTE | 2017-01-01 16:44 | NUR ---
NUTRITION F/U: DIET RX: CONSISTENT CARB/2-3 GM NA/LOW FAT W/1500 ML FLUID RESTRICTION. PO INTAKE REMAINS GOOD; 75-100%. PT REMAINS AT LOW NUTRITION RISK. WILL ASSIST NEEDED.
--- NOTE | 2017-01-02 04:50 | NUR ---
Significant Event: PATIENT IS A/O X3 BUT FORGETUL. VSS. HR 60-70'S. SBP 110'S. AFEBRILE. 02 SATS IN MID 90'S ON 2L 02 PER NC. C/O SCROTAL/PENILE PAIN. GAVE ROXICODONE/TYLENOL X1 WITH SOME RELIEF. PATIENT STATES FEELING LIKE SWELLING GONE DOWN. LUNGS CLEAR/DIM THROUGHOUT. SOB WITH ACTIVITY. UP WITH 1A. BOWELS ACTIVE. C/O CONSTIPATION/BLOATING BUT IMPROVED SINCE BM THIS SHIFT. VOIDS PER URINAL. IV TO RIGHT HAND SL. CONTINUES TO HAVE GENERALIZED 2+ BUT DOES HAVE SOME ASCITES AND HAS CLOSER TO 3+ EDEMA TO LEFT LEG. ON ACHS ACCUCHECKS. Follow up: WAITING FOR MEDICAID ACCPETANCE AND RETIREMENT PLACEMENT.
[2017-01-02 09:36] LABS: MAGNESIUM 2.1 mg/dL (1.8-2.6); POTASSIUM 3.9 mMol/L (3.7-5.1)
--- NOTE | 2017-01-02 15:56 | NUR ---
D-PT REFUSED TO WALK DUE TO SORE SCROTUM.
--- NOTE | 2017-01-02 19:09 | NUR ---
PATIENT UP TO CHAIR W/ 1 ASSIST. REFUSED TO AMBULATE. VSS.
[2017-01-03 04:02] LABS: ALBUMIN 2.8 gm/dL (3.5-5.0); ANION GAP 11.2 (10.0-19.0); CALCIUM 8.4 mg/dL (8.5-10.5); CREATININE 1.4 mg/dL (0.6-1.3); MAGNESIUM 2.2 mg/dL (1.8-2.6); PHOSPHORUS 4.2 mg/dL (2.5-4.9); POTASSIUM 4.2 mMol/L (3.7-5.1)
--- NOTE | 2017-01-03 05:06 | NUR ---
Significant Event: Pt A&Ox3, but forgetful. Uses call light appropriately. VS stable, remains on RA. No c/o pain. Scrotum still edematous. Voids per urinal. Continues to have generalized 2+ edema; very thready pulses in feet. Accuchecks ACHS. 1.8L fluid restriction. Follow up: Continue plan of care. Waiting for placement.
--- NOTE | 2017-01-03 17:00 | NUR ---
PATIENT INCREASED ACTIVITY TODAY. UP WITH PHYSICAL THERAPY, AMBULATED AND TOOK SHOWER. SATS MAINTAIN GREATER THAN 90% WITH ACTIVITY ON RA. VSS.
[2017-01-04 04:30] LABS: ALBUMIN 2.8 gm/dL (3.5-5.0); ANION GAP 12.3 (10.0-19.0); CALCIUM 8.4 mg/dL (8.5-10.5); CREATININE 1.3 mg/dL (0.6-1.3); MAGNESIUM 2.1 mg/dL (1.8-2.6); PHOSPHORUS 4.6 mg/dL (2.5-4.9); POTASSIUM 4.3 mMol/L (3.7-5.1)
--- NOTE | 2017-01-04 05:01 | NUR ---
Significant Event: Pt A&Ox3, but can be forgetful. VS stable, remains on RA. Up x1 assist with gaitbelt and walker. Scrotum still edematous, encourage pt during the day to wear jockstrap instead of just doing the towel. Accuchecks ACHS, mild scale. 1.8L fluid restriction. Continue to encourage ambulation. Follow up: Continue plan of care
--- NOTE | 2017-01-04 16:41 | NUR ---
Significant Event: A/O x3, cooperative with cares. VSS, SBPs 110-120s, RHs 60-70s, currently on room air. No c/o pain. Up with assist of 1 et walker; ambulate rocha with physical therapy. Awaiting medicaid for placement. Follow up:
--- NOTE | 2017-01-05 04:44 | NUR ---
Significant Event: Pt A&Ox3, but can be forgetful. VS stable, remains on RA. Did c/o scrotum pain last night. 2 tylenol and 1 Patricia given with effect. Fluid restriction 1.8L. Accuchecks ACHS, mild corrective scale. Continue with ambulation. Follow up: Continue plan of care. Awaiting SNF placement.
--- NOTE | 2017-01-05 16:56 | NUR ---
Significant Event: A/O x3, cooperative with cares. VSS, SBPs 110-120s, HRs 60-70s, on room air. No c/o pain. Up in room with walker et assist of 1; ambulate rocha with physical therapy. Follow up:
--- NOTE | 2017-01-06 04:50 | NUR ---
Significant Event: Pt A&Ox3, can be forgetful. VS stable, remains on RA. HR's 70's; BP's 110's. No c/o pain. No changes. Follow up: Continue plan of care. Look for placement.
[2017-01-06 06:04] LABS: ANION GAP 13.1 (10.0-19.0); CALCIUM 8.6 mg/dL (8.5-10.5); CREATININE 1.3 mg/dL (0.6-1.3); POTASSIUM 4.1 mMol/L (3.7-5.1)
--- NOTE | 2017-01-06 19:08 | NUR ---
Significant Event: A/O x3, cooperative with cares. VSS, SBPs 110-130s, HRs 60-70s, on room air. Patient is to wear O2 at night and as needed during the day. PT/OT working with patient; took patient to the gym today to do therapy. Up with assist of 1 et walker to bathroom. Awaiting medicaid for placement. Follow up: may go to [facility] with tele
--- NOTE | 2017-01-07 05:07 | NUR ---
Significant Event: No major events throughout the night. Gave tylenol and Patricia x1 for leg pain. BS overnight 187. VS stable, HR 70's, BP's 100's-120's. Was on 2L O2 overnight with con't pulse ox. Sats remained WNL. Med/surg status and to move when bed available. Follow up: Continue plan of care.
--- NOTE | 2017-01-07 13:26 | NUR ---
PT SCREENED D/T LOS. MEAL INTAKE CONTS TO BE 75-100%. PT REMAINS AT NO RISK. WILL ASSIST NEEDED.
--- NOTE | 2017-01-07 16:55 | NUR ---
Significant Event: A/O x3, cooperative with cares. VSS, SBPs 110s, HRs 60-70s, currently on room air but does occassionally need 2 liters while sleeping to keep sats >90%. Up in room with SBA et walker; PT took outside et then to gym today. Follow up: awaiting medicaid approval for placement.
[2017-01-08 05:05] LABS: ALBUMIN 3.2 gm/dL (3.5-5.0); BLOOD UREA NITROGEN 34 mg/dL (6-24); CALCIUM 8.9 mg/dL (8.5-10.5); CHLORIDE 98 mMol/L (96-110); CO2 29 mMol/L (22-32); CREATININE 1.2 mg/dL (0.6-1.3); ESTIMATED GFR (MDRD EQUATION) > 60; MAGNESIUM 2.1 mg/dL (1.8-2.6); PHOSPHORUS 4.5 mg/dL (2.5-4.9); SODIUM 134 mMol/L (135-145)
--- NOTE | 2017-01-08 05:20 | NUR ---
Significant Event: Pt A&Ox3, forgetful. VS stable, remains on 2L nc when sleeping. Pt is med/surg status. No c/o pain overnight. Pt remains on 1.8L fluid restriction. ADA diet, accuchecks ACHS, mild scale. Edema still present in scrotum and legs. SBA w/gb and FWW. PT/OT consulted. Follow up: Awaiting medicaid for placement. Can transfer to med/surg with tele when bed is available.
--- NOTE | 2017-01-08 17:26 | NUR ---
Significant Event:Patient has been up in chair and in hallway with therapies. Therapies also took him outside. He had a subway sandwich mid afternoon. Accuchecks- 0700-100, and 1100-183. No SSI coverage. No new orders. Follow up:Continue to monitor
--- NOTE | 2017-01-09 04:19 | NUR ---
Significant Event: Patient A/Ox3. VSS on 2L @ noc. Up SBA to bathroom. No complaints of pain. 1400ml UOP this shift. Patient did not need sliding scale coverage at HS. Follow up: Waiting on insurance approval for placement.
--- NOTE | 2017-01-09 12:22 | NUR ---
Spoke with Janine at [facility] this morning. She is going to call [facility] to see where in the process Chen medicaid application is. Will continue to follow.
--- NOTE | 2017-01-09 16:14 | NUR ---
Significant Event:Patient up to bathroom with standby assist. Ambulated with therapies, was outside with therapies. No c/o pain today. Accuchecks- 0700-112; and 1100-123. No SSI. Follow up:Waiting for placement when Medicaid is approved.
--- NOTE | 2017-01-10 04:37 | NUR ---
Significant Event: Patient A/Ox3. VSS on RA and 2L @ noc. Up to bathroom SBA. Patient down 20.5kg since admission. No complaints of pain. Difficulty following 1800ml fluid restriction, but has been compliant with it tonight. Follow up: Waiting for medicaid approval for placement.
[2017-01-10 04:39] LABS: ALBUMIN 3.3 gm/dL (3.5-5.0); ANION GAP 12.1 (10.0-19.0); CALCIUM 8.8 mg/dL (8.5-10.5); CREATININE 1.3 mg/dL (0.6-1.3); MAGNESIUM 2.3 mg/dL (1.8-2.6); PHOSPHORUS 4.1 mg/dL (2.5-4.9); POTASSIUM 4.1 mMol/L (3.7-5.1)
--- NOTE | 2017-01-10 15:51 | NUR ---
Significant Event: A/O X3. UP WITH SBA, GB AND WALKER. VSS. 1-2 LITERS O2 WHEN SLEEPING, ROOM AIR WHEN AWAKE. PIV TO RIGHT HAND SL'D. 1800 ML FLUID RESTRICTION. TO GYM WITH PT/OT FOR AN HOUR THIS AFTERNOON. SHOWERED. Follow up:MED SURG STATUS
[2017-01-11 04:23] LABS: ALBUMIN 3.4 gm/dL (3.5-5.0); ANION GAP 12.2 (10.0-19.0); CALCIUM 8.7 mg/dL (8.5-10.5); CREATININE 1.4 mg/dL (0.6-1.3); MAGNESIUM 2.3 mg/dL (1.8-2.6); PHOSPHORUS 4.1 mg/dL (2.5-4.9); POTASSIUM 4.2 mMol/L (3.7-5.1)
--- NOTE | 2017-01-11 06:58 | NUR ---
Significant Event: UP WITH STANDBY ASSIST TO BRX3. SLIGHT PAIN IN R) HIP AT TIMES. NO PAIN MEDS REQUESTED. VOIDING WELL PER URINAL. OFF/ON 2L O2 ALL NIGHT. Follow up:
--- NOTE | 2017-01-11 16:36 | NUR ---
Significant Event: A/O X3. UP WITH 1 ASSIST GB AND WALKER. VSS. C/O PAIN TO RIGHT HIP AND LEG, CONSTANZA PO GIVEN X1 WITH GOOD RELIEF. IV SL'D TO RIGHT HAND. 1800 ML UOP. Follow up:
[2017-01-12 04:08] LABS: ALBUMIN 3.3 gm/dL (3.5-5.0); ANION GAP 12.1 (10.0-19.0); BLOOD UREA NITROGEN 38 mg/dL (6-24); CALCIUM 8.6 mg/dL (8.5-10.5); CHLORIDE 98 mMol/L (96-110); CO2 28 mMol/L (22-32); CREATININE 1.2 mg/dL (0.6-1.3); ESTIMATED GFR (MDRD EQUATION) > 60; MAGNESIUM 2.3 mg/dL (1.8-2.6); PHOSPHORUS 4.1 mg/dL (2.5-4.9); POTASSIUM 4.1 mMol/L (3.7-5.1); SODIUM 134 mMol/L (135-145)
--- NOTE | 2017-01-12 04:37 | NUR ---
Significant Event: A/O, VSS on RA, wears 2L O2 at hs, c/o pain to R)hip 03/13, Roxicodone given x2 with pain relieved, ambulated hallway x1 lap, SBA with walker to br, fluid restriction followed Follow up: awaiting [facility] for placement
--- NOTE | 2017-01-12 16:27 | NUR ---
Significant Event: A/O X3. UP WITH MINIMAL 1 ASSIST, GB AND WALKER. VSS. DENIES PAIN. VOIDS WELL PER URINAL. PIV SL'D TO RIGHT HAND. Follow up: [facility] STATUS.
--- NOTE | 2017-01-13 04:36 | NUR ---
Significant Event: A/O, forgetful, VSS, 2L while sleeping, afebrile, ambulated hallway x1, following 1800ml fluid restriction Follow up: awaiting [facility] for placement
--- NOTE | 2017-01-13 12:55 | NUR ---
Spoke with Janine at [place] to see where [facility] was in the process with the Medicaid application. She states that they want his rental agreement, titles for a car and motorcycle that they show he has. Janine is trying to get this information.
--- NOTE | 2017-01-13 15:47 | NUR ---
Significant Event: A/O. O2 sat upon initial assessment was 85% on RA. 2L/NC applied but patient frequently removes himself. 90-91% on RA while sitting up in the chair this afternoon. Other VS remain stable. Up with 1 assist. Down to gym for therapies today. Follow up: cont plan of care.
--- NOTE | 2017-01-14 04:20 | NUR ---
Patient A/Ox3. VSS on RA while awake, 2L at HS. One assist w/walker and gaitbelt. Lungs clear. Bowel sounds present, 1 BM this shift. IV saline locked. No complaints.
--- NOTE | 2017-01-14 15:20 | NUR ---
A-NUTRITION F/U VISITED W/PT RE: APPETITE, INTAKE AND WT. PT'S CURRENT WT IS 76.6 KG (168#). WT IS DOWN FROM ADMIT WT; PT ADMITTED W/ASCITES AND 3+ EDEMA. HAS BEEN ON DIURETICS. PT REPORTS THAT HIS UBW PRIOR TO THE FLUID ACCUMULATION WAS 160#. HE IS HAPPY THAT HIS WT IS RETURNING TO NORMAL. HE REPORTS HIS APPETITE GOOD. DIET RX: CONSISTENT CARB/2-3 GM NA/LOW FAT W/1500 ML FLUID RESTRICTION PO INTAKE 75-100% FOR THE MOST PART; OCC. REFUSAL. DISCUSSED SUPPLEMENT OPTIONS FOR THE TIMES HE DOES NOT WANT A MEAL; PT DECLINED. D-REMAINS AT LOW RISK I-CONTINUE W/CURRENT DIET RX M/E-WILL ASSIST NEEDED
--- NOTE | 2017-01-14 15:27 | NUR ---
A-NUTRITION F/U PLEURIX DRAIN PLANNED FOR 01/15. 1-2+ EDEMA PRESENT. ABD DISTENDED; (+)BS, (+)BM MEDS: [facility] LABS: NA 142, K+ 3.7, GLU 100, BUN 53, EQUIPMENT INSTALLER 2.4, ALB 3.7 DIET RX: CONSISTENT CARB. PO INTAKE 75-100%. EST NUTR NEEDS: [id number] KCALS AND 112-150 GM PROTEIN D-REMAINS AT LOW RISK I-CONTINUE W/CURRENT DIET RX M/E-WILL ASSIST NEEDED
--- NOTE | 2017-01-14 17:43 | NUR ---
REFUSED O2
--- NOTE | 2017-01-14 18:31 | NUR ---
Significant Event:Patient had uneventful day. Up with 1 SBA and walker. SpO2 84-88% with patient refusing to wear O2 as ordered. Denies c/o pain. Follow up:
--- NOTE | 2017-01-15 04:44 | NUR ---
Significant Event: A/O, VSS on RA, voiding per urinal, ambulated hallway with sba/walker, cooperative with cares Follow up: continue to work on placement
--- NOTE | 2017-01-15 18:45 | NUR ---
Patient continues to refuse to wear his oxygen despite his SpO2 levels being low. He ambulates with walker/1 SBA. Denies c/o pain. Continues with fluid restriction.
--- NOTE | 2017-01-16 05:20 | NUR ---
Patient A/Ox3. VSS on RA. Up with standby assist and walker. IV saline locked. Lungs clear. Bowel sounds present. No complaints. On fluid restriction hard for patient to follow. AC/HS Accu checks. Waiting on placement.
--- NOTE | 2017-01-16 11:59 | NUR ---
Social visit with patient today. We discussed his discharge plans. I explained that [facility] and [facility] will reevaluate him after his medicaid is in place. I did ask him where else he would like me to look for placement incase neither of the [facility] has a bed or can not accept. He states [place]. Will call and see who in [place] may have available beds. Will continue to follow.
--- NOTE | 2017-01-16 16:39 | NUR ---
Patient status unchanged. He continues to wait for placement/discharge. Patient participates with therapy as asked. Remains on 1800ml fluid restriction which he doesn't follow very well.
--- NOTE | 2017-01-17 03:52 | NUR ---
Significant Event: Patient alert and oriented X4. Up with stand by assist, walker and gait belt. 1800ml fluid restrict. Vitals stable and on 2 liters at night. History of R) hip fracture 5 months ago. Does walk with limp. Working with PT. Walked in halls X1. Tolerated well. Dry skin noted to bilateral lower legs. Nurse giving report states he has lost over 50lbs in water weight since admitted on 12/23/16. Minor scrapes and brusing noted to skin. Will call appropriately. PO tylenol given X1 at 0130 for hip pain after walking. Cooperative with cares. Daily weight Follow up: Monitor fluid restrict
--- NOTE | 2017-01-17 17:14 | NUR ---
Significant Event: VSS, A LITTLE HYPOTENSIVE IN THE 90'S FOR SBP. UP TO WALK HALLS X2 AND PT GYM. SHOWERED. I- 610. SLEPT MOST OF SHIFT. IV SL TO R) WRIST. COOPORATIVE WITH FLUID RESTRICTION. REFUSED TO WEAR 02 WHILE SLEEPING OR WHEN NEEDED.
--- NOTE | 2017-01-18 05:22 | NUR ---
Significant Event: AAOX3. ADA/CARDIAC DIET WITH 1800ML FLUID RESTRICTION (1200ML FOR DAYS, 600 ML FOR NOC). ACHS ACCUCHECK WIHT CUSTOM SS. SL TO RIGHT HAND, FLUSHED WELL, NO BLD RETURN. DAILY STANDING WT. VSS ON 2L O2/NC, RUNS HYPOTENSIVE. (SBP IN 100'S) LUNG SOUNDS CLEAR, SUPRACLAVICULAR RETRACTIONS NOTED. BS+, ROUND ABD. PT HAD TOTAL OF 460IN FOR NOC SHIFT. UP 360ML FOR DAYS CREDIT. OUT: 900ML. PT CONSISTENTLY REFUSED BED ALARM, EDUCATION ON USE GIVEN, PT STILL REFUSED. PT DIDN'T SLEEP MUCH DURING SHIFT. HIS NEIGHBOR VISITED HIM LAST NOC. 650MG TYLENOL ADMINISTERED AT 2036 FOR C/O PAIN IN HIP. SBA WITH FWW AND GAITBELT. COOPERATIVE WITH CARES. Follow up:
--- NOTE | 2017-01-18 17:11 | NUR ---
Patient afebrile with VSS. Patient on 1800ml fluid restriction (1200ml between 0400 and 1600, and 600ml between 1600 and 0400). 1010ml before 1600. 120ml in thus far after 1600 to your credit. Patient ate well for breatfast and lunch. Patient to be on O2 while sleeping and RA when awake but will refuse O2 when going to sleep and use it when awake. Patient ambulated throughout halls twice today. started c/o right hip pain at 1630, given 5mg of Patricia. Using accessory muscles to breath. Patient is also diabetic. Patient is pleasant to talk to but has very flat affect. Lung sounds clear but diminished at bases
--- NOTE | 2017-01-18 17:50 | NUR ---
D: DOCUMENTATION AND CARE COMPLETED BY RIVKA COLUNGA I AGREE WITH DOCUMENTATION AND CARE THAT WAS PROVIDED.
--- NOTE | 2017-01-19 04:35 | NUR ---
Significant Event: AAOX3. SBA WITH FWW, REFUSES GAITBELT, VERBALIZES UNDERSTANDING OF USE. HAD 660 IN PO. BS WAS 142 AT 2100, NO CORRECTIONS. CONSTANZA ADMINISTERED X1 AT 2100. Follow up:
--- NOTE | 2017-01-19 15:28 | NUR ---
Patient afebrile with VSS. No c/o pain throughout shift. Patient showered this morning around 1100. LS clear and diminished in bases. O2 sats in low 90s when on room air. Patient took a nap at 1430 and was encouraged to wear his nasal canula but refused. Patient ate 100% for breakfast and lunch. IV saline locked to right hand flushes well but no blood return. Patient supposed to be on room air when awake and on 2.0L of O2 when sleeping but doesn't always comply.
--- NOTE | 2017-01-19 17:58 | NUR ---
D: DOCUMENTATION AND CARE REVIEWED COMPLETED BY RIVKA COLUNGA I AGREE WITH CARE AND CHARTING.
--- NOTE | 2017-01-20 04:09 | NUR ---
Significant Event: DENIES PAIN THIS SHIFT. ACCU CHECK @ HS WAS 196. NO NOVALOG GIVEN. LEVIMIR 12 UNITS GIVEN ORDERED. WAS IN CHAIR FOR DINNER. O2 AT HS STARTED @ 3L PER N/C PER PATIENT REQUEST. V/S STABLE. VOIDS WITHOUT DIFFICULTY. AMBULATES IN ROOM WITH USE OF WALKER. TOLERATES ACTIVITY WELL. Follow up: CONTINUE TO OBSERVE
--- NOTE | 2017-01-20 14:29 | NUR ---
Significant Event: Pt denies pain. Sleeps off/on most of the day. Is non-compliant to wear his O2 when sleeping, O2 sat 85% on room air when sleeping. Needs to be on 2 liters o2 when sleeping. Flat affect but cooperative with cares. Dc'd tele per order. Continues on fluid restriction. Follow up:
--- NOTE | 2017-01-20 15:30 | NUR ---
Attempted to meet with patient at 1245, but he was sleeping soundly in the recliner. I tried to wake him, but he did not wake. I wrote my name on his whiteboard and will meet with him tomorrow.
--- NOTE | 2017-01-21 03:34 | NUR ---
SIGNIFICANT EVENT: Alert & oriented. Hypotensive at times: 92 to 107 over 54 to 66. Diabetic diet, 1800 FR. ACHS accuchecks, Mild SS. SBA to ambulate with walker. 3L O2, was on 90% on RA at 2nd assessment but NC reapplied and came back up to mid 90's. Adelaida and Tylenol given x1 at 2006. Pleasant and cooperative with cares.
--- NOTE | 2017-01-21 15:09 | NUR ---
A-NUTRITION F/U CBW: 76.7 KG. WT HAS BEEN BETWEEN 75-[address] NOTE ON 01/14 AT 1327 IS NOT THIS PT'S; WRONG PT. MEDS: LASIX, ALDACTONE DIET RX: CONSISTENT CARB/2-3 GM NA/LOW FAT DIET W/1500 ML FLUID RESTRICTION. PO INTAKE 75-100% FOR THE MOST PART EST NUTR NEEDS: [id number] KCALS (25-30 KCALS/KG) AND 61-77 GM PROTEIN (0.8-13.0 GM/KG). FLUID PER D-REMAINS AT LOW NUTRITION RISK I-CONTINUE W/CURRENT DIET RX M/E-WILL ASSIST NEEDED
--- NOTE | 2017-01-21 16:08 | NUR ---
Went to meet with patient at 1510 today and he was not in his room as he was with therapies in the gym. I spoke to Janine with [facility] at 1550 and she states that she sent all the final information to Medicaid yesterday so we should be hearing from them soon. Janine states she is going to call her contact clerk with [facility] Medicaid tomorrow to see where they are in the application process. I also called and spoke to Ludmila James, with PT to discuss her with her how patient is doing and whether or not he would be safe to discharge to home with home health again. Ludmila states her concerns is that although he is moving well, he complains of right knee and hip pain and she is concerned that if he were to go home he will not be motivated to ambulate and he will stay in bed and decondition again. Even with [facility], she is concerned their visits might not be enough to keep patient's health from declining if he were at home. Will attempt to meet with patient again tomorrow and CM department will continue to follow and work on safe discharge plan.
--- NOTE | 2017-01-21 16:44 | NUR ---
Significant Event:Is A/O.Is on fld.restriction.Has SL in Rt.hand.Had Roxicodone 5mg at 1025 for Rt.hip/leg pain at 1025.Had 2 Tylenol at 1410. Has sl.edema in lower extremities.Is up with walker & 1 assist.Pretty tired today.Did go outside with PT. Follow up:
--- NOTE | 2017-01-22 00:46 | NUR ---
SIGNIFICANT EVENT: Patient alert & oriented. VSS - RA when awake, 2L at HS. Pt on FR 1800 - 660 in for days, leaving 1140 mL for nights. Only 300 H2O in so far this shift. Diabetic diet. ACHS accuchecks, Mild SS. SBA walker. No pain meds so far this shift. Cooperative with cares.
--- NOTE | 2017-01-22 12:06 | NUR ---
Met with Gonzalez joshua for social visit. Introduced myself as CM following him this week. Let him know that Janine with [facility] states all paperwork and documents have been submitted for his Medicaid application so she is hopeful that he may have Medicaid by mid to end of next week. I also asked him if he feels he needs to go to a skilled facility and he states yes, he does not feel he can go home yet. 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 He is willing to look at [facility] facilities in [facility] and [facility] since his family lives in [place], but he does not want to go farther east than . Will continue to follow and wait on Medicaid to come through.
--- NOTE | 2017-01-22 16:22 | NUR ---
Significant event: Up in room with help. Alert and oriented. On room air today. No insulin given per sliding scale. accuchecks 133 and 170. Tylenol twice today for hip pain and Roxicodone at 1154.Continues on fluid restriction.
--- NOTE | 2017-01-23 05:30 | NUR ---
Significant Event:PT alert and orintedx4. pleasant with staff and cares. denies pain when asked. up in room with standby assist. bowel sounds active x4 lung sounds clear,diminished. pt wears o2 at night 3L. cont of bowel and bladder. no bm this shift. achs blood sugars. hs blood sugar 157. pt takes medicaiton with no complications noted. pt is on I&O and daily weight. uses call light approp. Follow up:
--- NOTE | 2017-01-23 13:18 | NUR ---
Phone call to Janine with [facility] at 1010 today. She has not heard from Medicaid/[facility] yet. She will let me know as soon as she hears from them. CM will continue to follow.
--- NOTE | 2017-01-23 14:57 | NUR ---
Significant Event: Pt c/o intermittent right hip pain, good relief with tylenol and roxycodone this am. Up with standby assist. Up to PT gym before lunch for therapy. Restarted on lasix PO. Need to be a standing daily wt. Up in recliner most of day. Follow up:
--- NOTE | 2017-01-24 04:36 | NUR ---
Significant Event: AAOX3. ADA/CARDIAC DIET WITH 1800ML FLUID RESTRICT. SBA/INDEPENDENT WITH ACTIVITIES. PIV TO R) HAND SL. HAD 400ML IN DURING BUTTON MACHINE OPERATOR WITH 200ML COFFEE UP FOR DAYS. 2100 BS 181, NO CORRECTIONS MADE. VSS ON RA. 1 CONSTANZA GIVEN AROUND 2099 FOR C/O PAIN IN HIP (02/10). WAS AWAKE MOST OF SHIFT. COOPERATIVE WITH CARES. Follow up:
[2017-01-24 05:29] LABS: BASOPHIL # 0.1 K/uL (0.0-0.2); BASOPHIL % 0.9 %; EOSINOPHIL # 0.2 K/uL (0.0-0.5); EOSINOPHIL % 3.1 %; HEMATOCRIT 34.7 % (37.0-53.0); HEMOGLOBIN 10.9 g/dL (12.0-17.0); IMMATURE GRANULOCYTE % 0.3 %; LYMPHOCYTE # 1.1 K/uL (0.8-4.0); LYMPHOCYTE % 17.4 %; MCH 26.3 pg (27.0-34.0); MCHC 31.4 gm/dL (32.0-36.5); MCV 83.6 fl (83.0-98.0); MONOCYTE # 1.1 K/uL (0.0-1.0); MONOCYTE % 16.6 %; MPV 10.1 fl (9.4-12.4); NEUTROPHIL % 61.7 %; NRBC % 0 /100WBC (0-0.00); PLATELET COUNT 165 K/uL (150-450); RBC 4.15 M/uL (4.00-6.00); WBC 6.4 K/uL (4.0-11.0)
[2017-01-24 05:33] LABS: RDW-CV 19.1 % (11.9-14.6)
[2017-01-24 05:47] LABS: ANION GAP 11.8 (10.0-19.0); BLOOD UREA NITROGEN 26 mg/dL (6-24); CALCIUM 8.2 mg/dL (8.5-10.5); CHLORIDE 103 mMol/L (96-110); CO2 26 mMol/L (22-32); CREATININE 1.1 mg/dL (0.6-1.3); ESTIMATED GFR (MDRD EQUATION) > 60; POTASSIUM 4.8 mMol/L (3.7-5.1); SODIUM 136 mMol/L (135-145)
--- NOTE | 2017-01-24 16:16 | NUR ---
Patient afebrile w/ VSS. 1,100ml in from 4892-2201. 2375ml of urine out. Patient c/o R hip pain in AM, was given Patricia @ 0915. IV saline locked in L wrist. Patient ate well. Showered, brushed teeth, and shaved in AM. Patient ambulated in [facility] around 1200.
--- NOTE | 2017-01-24 16:28 | NUR ---
DOCUMENTATION AND CARE COMPLETED BY RIVKA HUNT REVIEWED I AGREE WITH ALL CARE AND DOCUMENTATION.
--- NOTE | 2017-01-25 05:29 | NUR ---
Significant Event: AAOX3, FLAT AFFECT. ADA/CARDIAC DIET ACHS ACCHECKS, 1800ML FLUID RESTRICTION. COOPERATIVE WITH O2 TONIGHT. VSS ON RA. HAD 1150 OUT, WITH 600 ML IN. NO PRN'S ADMINISTERED. 2100 B, 2 U INSULIN ADMINISTERED. Follow up:
--- NOTE | 2017-01-25 07:58 | NUR ---
D: ANASARCA I: OX R: CHECKED PT'S O2 SATS THIS AM, SATS WERE 79% ON ROOM AIR, LET PT KNOW & THAT WE SHOULD PUT HIS 2 LPM BACK ON HIM, PT REFUSED TO LET ME PUT O2 BACK ON HIM P: CONT.
--- NOTE | 2017-01-25 18:30 | NUR ---
Significant Event: Patient up with standby assist and walker. Dr. Clemente in and said patient was to wear oxygen at all times. Patient still not wanting to wear oxygen. Patient had 540 ml of fluid intake on day shift. Patient also had 1975 ml of urine output. No BM today. Ate well for meals. Hoping that medicaid approval will come in next week. Follow up: Continue to monitor.
--- NOTE | 2017-01-26 04:49 | NUR ---
Significant Event: Sleeping on and off tonight. Afebrile, all other VSS. Up in room with minimal assist. 1800ml fluid restriction continues. 840 in this shift. PIV patent and saline locked. HS accuceck 186 and no SSI coverage needed. Denies pain. Cooperative with cares. Follow up:
[2017-01-26 05:26] LABS: ANION GAP 11.4 (10.0-19.0); BLOOD UREA NITROGEN 24 mg/dL (6-24); CALCIUM 8.5 mg/dL (8.5-10.5); CHLORIDE 102 mMol/L (96-110); CO2 26 mMol/L (22-32); CREATININE 1.2 mg/dL (0.6-1.3); ESTIMATED GFR (MDRD EQUATION) > 60; POTASSIUM 4.4 mMol/L (3.7-5.1); SODIUM 135 mMol/L (135-145)
--- NOTE | 2017-01-26 17:21 | NUR ---
Significant Event:sleeping without O2 when in room this am, encouraged to put on O2 and refused, 940 in po, 1860 out urine, ate well for meals, not up and around room as much today Follow up:
--- NOTE | 2017-01-27 04:36 | NUR ---
Significant Event: Sleeping for short periods. Afebrile, all other VSS. Denies pain. Continues on 1800ml/day fluid restricion. 720ml in this shift. PIV patent and saline locked. Up in room with minimal assistance. Cooperative with cares. Follow up:
--- NOTE | 2017-01-27 15:25 | NUR ---
Received call from Janine with [facility], she talked with Medicaid yarn finisher today, has everything she needs, just needs to know dc date. Janine told her ready for discharge, barrier is need Medicaid approval. She is hoping the yarn finisher finishing it up and will have approval by end of week. [facility] have told me that they will reassess once Medicaid has been approved, they came over early on in his stay and assessed, not a guarantee they will accept but said they would consider him at the time Medicaid in place. After talking with Janine I made a call to Pili with [facility] and explained pt situation and social and medical and psych needs to her and faxed referral. She will come assess tomorrow and have [facility] start looking for placement in their facilities for patient in case [facility] or [facility] end up saying they can't accept. Will talk with patient tomorrow about this.
--- NOTE | 2017-01-27 17:53 | NUR ---
patient afebrile with vss. Ate well for breakfast and lunch. 1600ml urine output. 960ml in PO. BS active. Patient had large BM this morning. Showered this am.
--- NOTE | 2017-01-27 20:33 | NUR ---
CHARTING AND ASSESSMENT FINDINGS BY Roshan HUNT HAVE BEEN REVIEWED AND AGREE WITH FINDINGS.
--- NOTE | 2017-01-28 04:26 | NUR ---
Significant Event: A&Ox3, VSS on room air. Wears 2L O2 at night. ACHS with no SSI given, 12 units levemir given at HS. Daily weight. IV to right forearm SL. 1800ml fluid restriction. Up ad-floyd in room. Denies needs. Follow up: continue with plan of care.
[2017-01-28 05:03] LABS: BASOPHIL # 0.1 K/uL (0.0-0.2); BASOPHIL % 0.8 %; EOSINOPHIL # 0.2 K/uL (0.0-0.5); EOSINOPHIL % 2.6 %; HEMATOCRIT 34.7 % (37.0-53.0); HEMOGLOBIN 10.7 g/dL (12.0-17.0); IMMATURE GRANULOCYTE % 0.5 %; LYMPHOCYTE # 1.1 K/uL (0.8-4.0); LYMPHOCYTE % 17.1 %; MCH 25.2 pg (27.0-34.0); MCHC 30.8 gm/dL (32.0-36.5); MCV 81.8 fl (83.0-98.0); MONOCYTE # 1.2 K/uL (0.0-1.0); MPV 9.3 fl (9.4-12.4); NEUTROPHIL # (ANC) 3.8 K/uL (1.4-9.0); NRBC % 0 /100WBC (0-0.00); PLATELET COUNT 144 K/uL (150-450); RBC 4.24 M/uL (4.00-6.00); RDW-CV 19.2 % (11.9-14.6); WBC 6.3 K/uL (4.0-11.0)
[2017-01-28 05:26] LABS: ANION GAP 11.4 (10.0-19.0); BLOOD UREA NITROGEN 25 mg/dL (6-24); CALCIUM 8.6 mg/dL (8.5-10.5); CHLORIDE 102 mMol/L (96-110); CO2 26 mMol/L (22-32); CREATININE 1.2 mg/dL (0.6-1.3); ESTIMATED GFR (MDRD EQUATION) > 60; MAGNESIUM 2.3 mg/dL (1.8-2.6); POTASSIUM 4.4 mMol/L (3.7-5.1); SODIUM 135 mMol/L (135-145)
--- NOTE | 2017-01-28 13:13 | NUR ---
Talked with patient and let him know Pili from [facility] coming today to see him, will have [facility] reassess him when we get word Medicaid has been approved, but will have Pili also assess for their [place] facilities in case [facility] in [place] can't accept. He is okay with that plan. Hopes gets approved soon. Pili came to see him and then reported to me that she talked to him about where else he would want to go in case [place] doesn't have any beds (a possibility) and they looked at the map of [facility]'s in [place] and he would want to go to [place] or [place] as closer to his mom. Said he seemed excited about that possibility. I told her that I will talk with pt again in a couple of days, because maybe he would prefer that plan as a first choice, she agreed and said she will check with those facilities as well. Will continue to follow. Talked with Janine again today and she said Medicaid mixer attendant has all the info, just waiting for them to approve.
--- NOTE | 2017-01-28 15:01 | NUR ---
A - NUTRITION FOLLOW-UP. FLAT AFFECT PER SHIFT REPORT. WAITING FOR MEDICAID AND PLACEMENT. WT STABLE LABS: GLU 117, BUN 25, PREBNP 4738 NEW MEDS: ALDACTONE, LASIX. ON INSULIN DIET: CONSISTENT CARBS/2-3 GRAMS SODIUM/LOW FAT AND 1800ML FLUID RESTRICTION. INTAKE 75-100% ALL MEALS. GOOD APPETITE PER SHIFT REPORT. EST NEEDS: [id number] KCAL, 61-77 GRAMS PROTEIN, FLUID NEEDS: PER MD D - NO NUTRITION DIAGNOSIS. M/E - GOAL: PT WILL CONTINUE TO TOLERATE >75% OF MEALS IN 7 DAYS. FOLLOW WEEKLY.
--- NOTE | 2017-01-28 16:06 | NUR ---
Significant Event: Patient alert and oriented x3 although not talkative and seems sleepy. Up independently in room. IV to the R) FA. ACHS ACCU checks were 119 and 243 today. Is on a 1800 ml fluid restriction-had 455ml this shift. Daily weight. Has needed 2L 02 during the day-falls into mid 80's without O2. Worked with PT this afternoon for a long time and returned tired. Patient denies pain/nausea. Eating well. No BM today. Waiting for placement.
--- NOTE | 2017-01-29 05:11 | NUR ---
Significant Event: Sleeping on and off this shift. Afebrile, all other VSS. O2 worn intermittently with encouragement. HS accucheck 217 and 2 units Novolog given per SS. Roxicodone (5mg) given x1 at 0442 for c/o R) hip pain. PIV patent and saline locked. 1800ml fluid restriction with 760 in this shift. Up in room ad floyd. Pleasant with cares. Follow up:
--- NOTE | 2017-01-29 17:11 | NUR ---
Afebrile, VSS. Saline lock in R forearm. Patient worked with PT and OT throughout day. Showered in AM. Did not c/o any pain during shift. 1800 ml fluid restriction, 1230 in this shift. Only 1000ml of urine out. BS active. LS clear and diminished. Accuchecks were 99, 205, and 191 this shift. Patient still waiting for placement.
--- NOTE | 2017-01-29 18:42 | NUR ---
ASSESSMENT FINDING AND CHARTING BY Roshan HUNT HAVE BEEN REVIEWED AND AGREE WITH THE FINDINGS.
--- NOTE | 2017-01-30 04:10 | NUR ---
Pt A&Ox3. VS stable on RA while awake, wears 2-3L at noc. Continues with 1800 fluid restrict; tolerating well. Voiding and taking PO without issue. Up independently in room. Reports mild aching to legs at times; denies need for PRN medications. Cooperative with cares.
--- NOTE | 2017-01-30 13:58 | NUR ---
Spoke to Janine with [facility] at 0840 today and asked if she knew any more on patient's Medicaid status. She was going to check with her contact at [facility] and see where they are with processing his Medicaid application and she would let me know what she finds out. 1010 Phone call from Janine stating she heard back from [facility] and they have not yet started his application because they have been waiting for a call back from the Veterinary Milk Specialist at [facility] in [place]. I called [facility] at [phone] and asked to talk to Lisa, but was informed she no longer works there. I was transferred to the new social secretary named Heather, but she did not answer and did not have voice mail. I called back twice at 1250 and then again at 1330 again not being able to reach Heather. I will keep trying to contact Heather and ask her to contact [facility] and provide them with the material they are needing to process his application.
--- NOTE | 2017-01-30 17:15 | NUR ---
Afebrile and VSS. Patient only required to be assessed and have VS taken once daily. 1100ml in this shift, 1900ml out. Showered this AM. Patient ate 100% for breakfast and lunch. IV saline locked to L forarm. Accuchecks were 111 and 221 today. Patient c/o pain in R hip but refused pain med stating "they don't help anyways."
--- NOTE | 2017-01-31 04:56 | NUR ---
Significant Event: Afebrile, all other VSS. Awake most of the night. Denies pain. PIV saline locked. Up in room ad floyd. HS accucheck 177 and no SSI coverage needed.1800ml/day fluid restriction. 660ml in this shift. Cooperative with cares. Follow up:
--- NOTE | 2017-01-31 10:08 | NUR ---
Talked with Janine with [facility] and she gave me email of HHS worker she has been talking with. Does not know what info she needs from [facility] but says that is what they say they are waiting on now. Talked with Milagros, youth care professional, she called yesterday and Lucila, the social sciences lecturer I talked with early on in [facility] stay and who started the Medicaid application no longer works there but they have a social sciences lecturer Heather who Milagros left voicemail for on Lucila's phone and medical office receptionist assistant said Heather would be checking the voicemail. I called [facility] just now and asked to speak with Heather and got Lucila's voicemail as well and left a voicemail for Heather again to please call me back so we can move forward with this.
--- NOTE | 2017-01-31 16:32 | NUR ---
Patient is alert and oriented, VSS, on room air but wears 2L at night. Independent in room with a walker. Can be irritable. ACHS accuchecks, lunch was 204 but he had just drank a pepsi. Decided to hold insulin and see what supper BS is. Strict I/O, 1800ml fluid restriction, only had 720ml in so far. Vital signs are Q day and IV is sluggish, order received to leave out if it goes bad. Waiting for placement.
--- NOTE | 2017-02-01 04:46 | NUR ---
Significant Event:pt alert and oriented x4. plesant with staff and cares. denies pain when asked. up in room on his own.uses call light as needed. cont of bowel and bladder. no bm this shift. lung sound clear/diminshed. bowels sounds presentx4 quadrants.wears 3L o2 at night sats remain above 95%. pt awak on and off during night. achs blood sugars. hs blood sugar 199 so no coverage needed. Follow up:
--- NOTE | 2017-02-01 17:55 | NUR ---
Significant event: Cooperative with cares. Up with walker in room. Alert and oriented. Voiding good. Accuchecks 116,221 and 121. Pain medicine once this am with relief.
--- NOTE | 2017-02-02 05:20 | NUR ---
Significant Event: ALERT AND ORIENTED AMBULATES WITH STAND BY ASSIST GB WALKER INDEPENDENT IN ROOM. USES URINAL TO VOID. ACHS WITH CUSTOM SLIDING SCALE. VSS WNL ON 3 L OF O2. 1800 FLUID RESTRICTION. FLAT AFFECT. FLUID RESTRICTION 33456. PLEASANT AND COOPERATIVE WITH CARES. Follow up:
--- NOTE | 2017-02-02 16:40 | NUR ---
Significant event: Up in room independently. Continues on fluid restriction. No c/o pain.
--- NOTE | 2017-02-03 04:33 | NUR ---
Significant Event: Patient alert and oriented X3. Up ad floyd in room. Uses walker. Walked in halls X1 with staff. Voids per urinal. 1800 ml Fluid restict. Pain to R) hip, roxicodone given X1 2100. Relief noted. Several bruises and scabs noted all over body. Very flat affect. Saline lock to L) forearm. ACHS accuchecks. Custom sliding scale. Daily weight. Strict I&O. Waiting for medicare for placement. Cooperative with cares. Follow up: Monitor vitals
--- NOTE | 2017-02-03 12:17 | NUR ---
A-NUTRITION F/U WT STABLE. NO NEW LABS OR MEDS. CONTINUES ON LASIX DIET RX: CONSISTENT CARB/2-3 GM NA/LOW FAT/1500 ML FR. PO INTAKE 100% EST NUTR NEEDS: [id number] KCALS AND 61-77 GM PROTEIN D-NOT AT NUTRITION RISK; NO NUTRITION DX IDENTIFIED I-CONTINUE W/CURRENT DIET RX M/E-WILL ASSIST NEEDED.
--- NOTE | 2017-02-03 19:25 | NUR ---
Patient is alert and oriented, VSS, on room air, but needs O2 at 2L at night. Refused to put in on this AM when his sat was 83%. 1800ml fluid restriction and only had 450ml on day shift. Went to subway for supper and started eating before BS could be taken so no coverage was given today. Waiting for placement.
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
--- NOTE | 2017-02-04 05:42 | NUR ---
Significant Event: Awake most of night. Afebrile, VSS. Drinking 800ml this shift, 1850ml out. At 2049 upon rounding RN observed patient not to be in room (see nurses noted). Patient returned to floor at 2109 and stated that he had his friend take him outside and that he "smoked a few cigarettes". Reinforced he is not to leave floor without letting RN know of his whereabout and reinforced tobacco free campus policy. Patient states understanding. Patient is up in room independently. PIV patent and saline locked. HS accuceck 144 and no SSI coveraged needed. Cooperative with cares. Follow up:
--- NOTE | 2017-02-04 15:30 | NUR ---
Significant event: Up in room ambulating and up in halls ambulating with staff. Requested to go outside to smoke, explained the no smoking policy and that he is on nicotene patch. Cooperative with cares.
--- NOTE | 2017-02-05 01:13 | NUR ---
SIGNIFICANT EVENT: Alert, oriented. VSS on RA - O2 set to 3L at all times but pt usually does not wear it. Mainly needed when sleeping. Pt had cigarettes at bedside - these were removed from room. Pt seen by TA with contact person in pocket but pt refuses to give contact person to RN. Pt also refuses bed alarm at HS. Independent in room with walker. 1800 mL fluid restrict. Waiting for placement.
--- NOTE | 2017-02-05 09:31 | NUR ---
Phone call to Heather at [facility] at [phone] at 0915. She was not available so I left a message with the management sme asking her to call me. I did not leave a voicemail because she has not returned any of our calls.
--- NOTE | 2017-02-05 16:40 | NUR ---
Significant Event: Pt has been up independently in the room today. Showered with set up assistance. He has ambulated in the halls with PT. He has not left the unit today. Noticed pack of cigarettes in his pocket. He has been cooperative with cares today. Blood sugar this am was 110 and 286 before lunch (required 4 units of novolog). He has had 780ml in orally and 1425ml of UOP. Follow up: Awaiting placement.
--- NOTE | 2017-02-06 04:17 | NUR ---
Significant Event:PT alert and orientedx4.pleasant with staff and cares. denies pain when asked. walk in room with walker ad floyd. walks in rocha wiht staff. vss. takes medicaiton whole. blood sugar at hs 213. bowel sounds active x4, lung sounds clear in upper diminished in lower. uses call light approp. Follow up:
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
--- NOTE | 2017-02-06 16:03 | NUR ---
Significant Event:PT ALERT AND FOR THE MOST PART COOPERATIVE. DENIES PAIN. WANTS TO GO OUTSIDE, BUT NEED DRValencia'S ORDER. AD JASE IN ROOM. STATES HAD A LARGE STOOL TODAY. SHOWER BY SELF. HAD 600ML. PO. Follow up:
--- NOTE | 2017-02-07 03:54 | NUR ---
Significant Event: Sleeping on and off tonight. VSS. 1800ml fluid restriction continues, 600ml in PO this shift. Up in room independently with walker. Voiding well. HS accucheck was 158 and no SSI required. Patient cooperative with cares. Follow up:
--- NOTE | 2017-02-07 12:19 | NUR ---
Faxed SCO screen to Nova at [employer]. Also called her and left message for her to call me back re: Medicaid Waiver application and how long that process takes. Waiting call back. Waiting on [facility] to come assess patient.
--- NOTE | 2017-02-07 16:36 | NUR ---
Significant Event:Is A/O.No IV access.Is amb.on own with walker,does well.Is on accuchecks.Waiting for placement.No c/o pain. Follow up:
--- NOTE | 2017-02-08 06:07 | NUR ---
Significant Event: AAOX3. ADA, 1800 ML FLUID RESTRICTION. NO PIV ACCESS. HAD 650 IN FOR NIGHTS AND 625 FOR DAYS YESTERDAY. 2100 BS: 186, NO CORRECTION NEEDED. VSS ON RA. CONSTANZA ADMINISTERED X2 LAST AT 2320. POSSIBLE D/C NEXT WEEK TO ASSISSTED LIVING. Follow up:
--- NOTE | 2017-02-08 13:06 | NUR ---
Significant Event: PT A&O x3. VSS, on room air in the daytime. PT ambulates with walker, standby assist. Showered this AM. No IV access. Denies pain. Tolerating diet. PT remains on 1800ml fluid restriction. AC/HS accucheck, gave 2 units at 1100. Follow up: Waiting for placement
--- NOTE | 2017-02-08 18:40 | NUR ---
ASSUMED CARES FROM [facility] AT 1400. PATIENT ALERT AND ORIENTED X3. VSS. UP AD JASE IN ROOM. NO PRNS GIVEN. SUPPER ACCUCHECK 147 NO INSULIN GIVEN. CONTINUES ON FLUID RESTRICTIONS. PATIENT PLEASANT AND COOPERATIVE WITH CARES.
--- NOTE | 2017-02-09 05:39 | NUR ---
Significant Event: AAOX3. ADA, CARDIAC DIET, 1800ML FLUID RESTRICTION. VSS, PT REFUSED O2 INITAILLY, BUT COMPLIED WITH RT. UP AD JASE IN ROOM. AMB IN CRISTOBAL X2. HS BS 200, NO SSI ADMIN. NO PIV ACCESS. AWAITING ASSESSMENT FOR PLACEMENT AT [facility]. Follow up:
--- NOTE | 2017-02-09 19:05 | NUR ---
D: PATIENT VITAL SIGNS STABLE PATIENT AFEBRILE. PATIENT UP IN ROOM AND IN HALLS WITH WALKER TOLERATING EXCELLENT. PATIENT ACCUCHECKS 100, 214, 147. PATIENT HAS INTAKE OF 560 AND VOIDED 2005. AM BLOOD PRESSURE MEDICATIONS HELD PER BLOOD PRESSURE PARAMETERS.
--- NOTE | 2017-02-10 04:13 | NUR ---
Significant Event: Sleeping on and off this shift. VSS. Up in room independently. Ambulated in rocha with SBA. Continues on 1800ml fluid restriction, 900ml in this shift. 1575 out in urine. Pleasant and cooperative with cares. Follow up:
--- NOTE | 2017-02-10 13:58 | NUR ---
Milagro from [facility] called to let me know they assessed, reviewed chart and are declining to accept pt, do not feel they can meet his needs. I called [facility], both [facility] and [facility] in [facility] as of this morning, but anticipate an opening this week. Will know more in the am. Faxed them updated referral information. Called [employer] and left message for Nova, asking call back to confirm she is coming tomorrow to assess for Med Waiver Program down the road if ever able to find [facility] Med Waiver Bed for patient. Will give [address] a call tomorrow to see if they would assess patient before I find placement out of town for him.
--- NOTE | 2017-02-10 17:53 | NUR ---
Significant Event: more pleasant in am, 480 in po, 2725 out in urine, does have 32oz beverage in room that has to last him the night, accu 121. 106, 95, no insulin given, O2 off during day but was wearing it this am while asleep, hopeful for dismissal soon Follow up:
--- NOTE | 2017-02-11 00:13 | NUR ---
Significant Event: VSS. Denies pain. Up in room ad floyd. HS accuceck 180 and no SSI coverage needed. 1110ml in PO. O2 on when sleeping. Cooperative with cares. Follow up:
--- NOTE | 2017-02-11 05:22 | NUR ---
Significant Event:Appears to have rested well tonight. Up ambulating in halls during the night, with standby assist. 900 in & 740 out. Had subway for supper. Weighed 74 kg this AM. Remains on the 1800 ml fluid restriction. Up in room independently.
--- NOTE | 2017-02-11 11:48 | NUR ---
Talked with Gonzalez, let him know [facility] said no, so no long term in [place] is going to accept him. Let him know I have a call out to [place] to see if [facility] will accept. Let him know I think Constance from [facility] will come see him today to start application for Med Waiver to see if he can have a payor source to eventually get to an assisted living, may not be any Med Waiver [facility] beds in town, but I will call and check at [facility], but not likely to hernandez out can go directly to [facility], so still looking at SNF. Asked him how important being at a smoking facility is to him, he said not that important. Told him none of the SNF's in [place] are smoking facilities, but that I think [facility] may be a smoking facility, and that the SNF's in [place] are not smoking facilities, but that [facility] does have SNF's in the [facility] that are smoking facilities if he wants us to check at one of them, he said no, [place] is his next choice. Asked what his next choice after [place] is, if he would want to go to the [facility] in [place], [place] to be closer for his mom to visit. He said yes, that would be his next choice after [place]. Told him I will let Armour know that. Called Stefani at [facility] ([facility] in [place]) and she thinks they are working on moving beds around so they can accept pt later this week, will know more information tomorrow. Asked her to start referral at [facility] as well, and would need a primary care physician if goes to [place], she will do so. Solar Energy Technician will talk with her in the morning. Nova from [facility] did not return my call from yesterday so I called her again today and left a voicemail to call me to let me know if she is coming up to see Gonzalez today. Called [facility] and asked if Med Waiver bed available, left message for hydrographical technical officer to call me back. Working toward placement.
--- NOTE | 2017-02-11 16:57 | NUR ---
Significant Event: Patient up ad floyd in room. Did ambulate in hallway with walker and physical therapy and tolerated well. Has had 660 ml in of his fluid restriction. Asked earlier for a pop but refused diet so patient given regular per his insistence. Reports having BM today. Did shower with assistance. Follow up: Continue to monitor.
--- NOTE | 2017-02-12 02:39 | NUR ---
Significant Event: PATIENT IS ALERT AND ORIENTED. UP AD JASE IN ROOM. CALLS APPROPRIATELY. ACCUCHECKS ACHS. HS WAS 169. VS QSHIFT. NO IV SITE. LAST BM 02/11. Follow up:WAITING ON PLACEMENT.
--- NOTE | 2017-02-12 11:21 | NUR ---
Phone call placed to Stefani at [facility] at 0830 today, left her a message to call me. Phone call from Stefani at 0915 stating she has not heard back from [facility] yet, but as of yesterday they had male beds available. She also wanted to know if she should continue to find an accepting physician in [place] for patient. I told her yes- to continue to try and find an accepting physician in [place]. But I needed her to contact [facility] and [place] first as [place] is his preferred choice over [place]. She states she will contact them and let me know.
--- NOTE | 2017-02-12 13:35 | NUR ---
PT SCREENED D/T LOS. WT IS DOWN 6# SINCE BEGINNING OF MONTH TO 161#; HOWEVER, PT IS ON ALDACTONE AND LASIX. INTAKE ON DIABETIC 2-3 NA+ DIET W/ 1500 FLUID RES IS CONSISTENTLY 75-100%. WAITING FOR PLACEMENT. PT REMAINS NOT AT RISK D/T GOOD ORAL INTAKE. WILL ASSIST NEEDED.
--- NOTE | 2017-02-12 13:49 | NUR ---
Significant Event: Patient's day has been uneventful. Denies pain. Has slept part of the day. Total intake for day shift is 1400 ml. photographer has 400 ml to their credit. Patient did need insulin coverage for lunch accucheck of 265, but did not need any this a.m. for breakfast at 151. Repositions self. Makes needs known. Follow up: Continue to monitor.
--- NOTE | 2017-02-13 04:18 | NUR ---
Significant Event:pt alert and oriented x4.plesant with staff and cares. up ad floyd. walks in rocha with no complications noted.pt achs blood sugars hs blood sugar 160 so no coverage needed. vss. wears o2 at night. denies pain when asked. continues to be on 1800ml fluid restirction. is compliant with this. weight this am was 73.7. Follow up:
--- NOTE | 2017-02-13 10:16 | NUR ---
Left message for Stefani at [facility] to call me back this morning.
--- NOTE | 2017-02-13 17:15 | NUR ---
Stefani with [facility] called and [facility] will accept pt tomorrow, they will call me with a time they will come get him, told them late morning or after lunch worked best here. Called Dr Clemente and let him know, he will continue to be Gustavo physician in [place]. Talked with Gonzalez and let him know, he is glad to finally have a plan. Let him know I checked at [facility] and at [facility] and neither of them have [facility] beds right now. Told him I will pass information along to foster care social worker at [facility] tomorrow. He is fine with that. He said he hasn't seen his counselor in a long time, Sue Garcia at [facility]. Said she probably wonders where he went because he went to see her monthly. Told him I would call her in the morning if he would like and he said yes, said he would like to continue counseling with her or at least in [place] if he can. Told him we can make sure that gets arranged. Will talk with foster care social worker in about it. Asked him about his schizophrenia, he says he was diagnosed in his 40s, but is doing well on his medications now and doesn't have problems. Said he probably had it a long time before he was diagnosed. Said he thought the people on TV were talking to him, it seemed real to him. Said he was scared of people and thought they were out to get him, went through a lot of jobs because he was so paranoid. Says he loves to visit with people now. Happy they have medication to fix his problem. Called pt mom Nerissa Isak, left voicemail with plan for Gonzalez and my phone number, told her I would try calling her tomorrow as well.
--- NOTE | 2017-02-13 17:40 | NUR ---
D: PATIENT VITAL SIGNS STABLE PATIENT AFEBRILE. PATIENT ACCUCHECK 94, 214, 174 WITH CORRECTION ONLY FOR LUNCH ACCUCHECK. PATIENT DID GO TO SUBWAY FOR LUNCH: 1120 IN ORALLY 2024 OUT IN VOIDS. PLAN FOR TRANSFER TO [facility] TOMORROW.
--- NOTE | 2017-02-13 18:05 | NUR ---
D: PATIENT REFUSES TO WEAR SDC'S HE IS A HIGH RISK FOR BLOOD CLOTS BUT HE CONTINUES TO REFUSE TO WEAR THEM.
--- NOTE | 2017-02-14 04:22 | NUR ---
Significant Event: PT UP MOST OF SHIFT. AMB IN [place] X2. VOICED EXCITEMENT ABOUT MOVE THIS MORNING. NO PRN'S ADMINISTERED. DENIED PAIN/SOB DURING SHIFT. Follow up:
--- NOTE | 2017-02-14 11:49 | NUR ---
Significant Event: Patient up ad floyd in halls ambulating with wheeled walker. States does have pain with ambulation in his right hip, but denies needing pain medication for this. Last BM 02/13/17. Patient on AC/HS blood sugars--this a.m. was 145 and lunch accucheck was 193. No sliding scale given per orders. Patient is on a fluid restriction of 1800 ml in 24 hours. Patient does ok with this. So far today patient has had 700 ml in orally. Patient afebrile. Vitals stable, 94% on room air. Follow up: Transfer to [facility] in [place].
--- NOTE | 2017-02-14 12:47 | NUR ---
Patient discharging today to [facility] SN[facility]. Nurse will call report, they are coming to get him at 1:30, I let him know. He is happy to be going. Hoping they have more for him to do. I called [facility] and gave report to the spinning machine operator, licensed social worker not available, and told her to have licensed social worker call me if there are any questions about Gonzalez. Let them know he is interested in having therapy, hasn't seen a therapist since before he fractured his hip in September. Let them know that Constance from [facility] has seen him and if they could find a Med Waiver bed at [facility] then that process has been started with her for changing pt to Med Waiver.
--- NOTE | 2017-03-04 11:53 | NUR ---
Received phone call today from Gustavo Multani. She reports [facility] is discharging him today and called her wanting $782.00 paid to them. She said she understood that he was approved for Medicaid and that he still had Medicare and shouldn't be responsible for that. Explained to her that we had this conversation before, that he used all 100 of his Medicare skilled days while in [place] so until he is out of a hospital or custodial for 60 consecutive days, he won't regenerate Medicare skilled days to pay for custodial, which is why he had to apply for Medicaid so he had a payment source for custodial. [facility] Medicaid approved him for Medicaid but based on his income from disability, he has $782.00 spend down he will have to pay every month before Medicaid will pay for anything for him, custodial or copays/deductibles for doctor office or medications. Nerissa says he only gets a little over $900.00 from social security every month, again explained to her, that Medicaid expects he spends his own money for his care, and will pay charges above and beyond that. She says she isn't sure she should pay it. Explained to her that is between her, Gonzalez and the custodial, but that if for whatever reason the custodial isn't paid what they are owed, then if Gonzalez needs a custodial in the future, they won't accept him back there. Reminded her that no custodial in [place] would accept him, and [place] was the closest, and it doesn't matter where he goes, that is what he will owe every month, if he needs to be in a custodial. Explained to her then Gonzalez will have to look for custodial further away from his doctor in [place], so would be in his best interest to make sure custodial close to where he wants to be gets paid. She said she will call the custodial and work it out.
--- NOTE | 2017-03-14 14:32 | NUR ---
Received phone call from Gustavo mom Nerissa this morning that Gonzalez has been home for 10 days and just isn't doing well, starting to gain fluid weight again and unable to care for self. Says at his doctor appt this week Dr Clemente said something about penitentiary in [place] (closer to mom in [place]) and wants to know how to go about getting him in there. Gave her number to [facility] [phone] and told her to call Stefani there and she will work on that plan, reminded her pt will have $750.00 share of cost every month or they won't accept. She said she would talk with Gonzalez and then call them. I called Stefani at [facility] then (about someone else but talked with her about Gustavo situation) and she hadn't heard from mom yet, but I told her to call me if I can help with the situation any. Then let Dr Clemente know the conversations and he said he would do anything he can to help as well. Later received call from Stefani at [facility] and Nerissa had called her and Gustavo wants to go back to [facility] as [place] too far away from where he considers home and his doctor. [facility] will accept but wants help troubleshooting getting orders from doctor and what to do about ID screen (will be positive again) and transportation to get him there. Discussed finding out who gave him ride home from [facility] as he left [place] and had to call someone to come get him, maybe they could give him a ride back or else call me back and I will give names of some transport companies or [employer] and I'm sure mom would pay for transportation there. As far as ID screen my best suggestion is to call [facility] and let them know situation to see if there is a work around for it, otherwise submit ID screen today and if positive hopefully they can do a home assessment early next week so he can get to [facility] next week. I then called Dr Clemente again and asked him to fill out orders and fax those and last office progress note to Stefani at [facility] at [phone] and he said he would do so, let him know about ID screen issue and may not be able to go until next week. Talked with Stefani again and she said Medicaid shows pt hasn't met share of cost for this month or January. They know he met it in February with Shakira Guzman. Discussed he wouldn't have used it yet this month and in January was here and we billed Medicare first so not sure we would have submitted it to Medicaid yet. Called Janine with [facility] and asked her to call Stefani, she did and called me back to let me know not sure why they are concerned with that as they will just have to get the $750 for this month and every month. That not meeting it yet here in January doesn't affect his ability to use it for March. Talked with Stefani again just now, has the orders from Dr Clemente and working on the ID screen issue and transportation issue, and not sure will work out for him to admit today but will admit to [facility] as soon as ID screen resolved. She will call me if any further help needed.
--- NOTE | 2017-04-01 12:38 | NUR ---
Talked with Pili Moy from [facility] when she was here and she reports Gonzalez was admitted to [facility] last week after ID screen process was complete.
== END 2017-02-14 14:55 | DRG 292 ==
LOC: GMED 13:19 → GPCU 17:38 → GMSU 12-23 15:00 → GPCU 12-23 15:00 → GMSU 01-16 23:03
PROVIDERS: Emergency Medicine; Family Medicine; Internal Medicine Interventional Cardiology; Nurse Practitioner Acute Care; Student in an Organized Health Care Education/Training Program; ADMIT Family Medicine
PROC: B246ZZZ Ultrasonography of Right and Left Heart (ICD-10-PCS; principal; 2016-12-23)
DX: I11.0 Hypertensive heart disease with heart failure (principal); J96.11 Chronic respiratory failure with hypoxia; I47.2 Ventricular tachycardia; I42.0 Dilated cardiomyopathy; E11.65 Type 2 diabetes mellitus with hyperglycemia; G47.34 Idiopathic sleep related nonobstructive alveolar hypoventilation; I50.43 Acute on chronic combined systolic (congestive) and diastolic (congestive) heart failure; I25.5 Ischemic cardiomyopathy; F41.9 Anxiety disorder, unspecified; J44.9 Chronic obstructive pulmonary disease, unspecified; N40.0 Benign prostatic hyperplasia without lower urinary tract symptoms; Z87.891 Personal history of nicotine dependence; I27.2 Other secondary pulmonary hypertension; I25.2 Old myocardial infarction; Z99.81 Dependence on supplemental oxygen
CPT/HCPCS: G0378; J1650; J1940; J7030; J7050